=== PATIENT | male | born 1955 | race Hispanic/Latino ===

== ENCOUNTER → 2019-05-19 | Outpatient (CLI) | payer MEDICARE ==
[~2019-05-19] MED LIST: REGADENOSON 0.4 MG/5 ML SYR IV ONE
== END ==
LOC: NM 07:24
PROVIDERS: ATTEND Internal Medicine Cardiovascular Disease
DX: R07.9 Chest pain, unspecified (principal); I25.10 Atherosclerotic heart disease of native coronary artery without angina pectoris
CPT/HCPCS: 78452; 93017; A9502; J2785

== ENCOUNTER 2020-03-11 10:13 | Inpatient (IN) | payer MEDICARE ==
[~2020-03-11] VITALS: Ht 165.1 cm; Wt 86.7 kg
[2020-03-11] MEDS ORDERED: ACETAMINOPHEN 325 MG TAB PO STA (10:32)
[2020-03-11] MEDS ORDERED: CEFTRIAXONE SOD 1 GM/NS 50 ML 50 ML IV STA (10:32)
[2020-03-11 11:28] LABS: BASOPHILS # (AUTO) 0.1 (0.0-0.1); BASOPHILS % 0.7 % (0.0-1.0); HEMATOCRIT 26.8 % (38.2-49.6); HEMOGLOBIN 8.3 g/dL (14.0-18.0); LYMPHOCYTES # (AUTO) 0.9 (1.0-3.2); LYMPHOCYTES % 11.3 % (18.0-39.1); MEAN CORPUSCULAR HEMOGLOBIN 25.6 pg (28-32); MEAN CORPUSCULAR VOLUME 82.7 fL (81-99); MONOCYTES # (AUTO) 0.6 (0.2-0.8); MONOCYTES % 8.3 % (4.4-11.3); NEUTROPHILS % 78.4 % (38.7-80.0); PLATELET COUNT 512 x10e3/uL (140-360); RED BLOOD COUNT 3.24 x10e6/uL (4.3-5.7); RED CELL DISTRIBUTION WIDTH 15.9 % (11.7-14.4)
[2020-03-11 11:46] LABS: ALANINE AMINOTRANSFERASE 34 IU/L (0-55); ALBUMIN 2.2 g/dL (3.5-5.0); ALBUMIN/GLOBULIN RATIO 0.5 (0.8-2.0); ALKALINE PHOSPHATASE 97 IU/L (40-150); BLOOD UREA NITROGEN 15 mg/dL (7-26); BUN/CREATININE RATIO 15 (6-25); CALCIUM 8.4 mg/dL (8.4-10.2); CARBON DIOXIDE 24 mmol/L (22-29); CHLORIDE 94 mmol/L (98-107); CREATININE, SERUM 1.01 mg/dL (0.72-1.25); EST GLOMERULAR FILTRATION RATE > 60 ML/MIN (60-); GLUCOSE 202 mg/dL (74-118); SODIUM 127 mmol/L (136-145)
--- NOTE | 2020-03-11 12:28 | Diagnostic Imaging Report ---
EXAMINATION: CHEST SINGLE (PORTABLE) INDICATION: Shortness of breath COMPARISON: None FINDINGS: LINES/TUBES:EKG leads overlie the chest. LUNGS:The lungs are moderately inflated. Left greater than right lower lung patchy airspace opacities. PLEURA:No pleural effusion or pneumothorax. MEDIASTINUM:The cardiomediastinal silhouette appears normal in size and shape. Atherosclerotic calcifications of the thoracic aorta. BONES/SOFT TISSUES:No acute osseous injury. ABDOMEN:No free air under the diaphragm. IMPRESSION: Left greater than right lower lung patchy airspace opacities concerning for pneumonia in the proper clinical setting. Signed by: Maggie Pacheco MD on 03/11/2020 12:25 PM
--- NOTE | 2020-03-11 12:57 | Emergency Department Note ---
History of Present Illnes History of Present Illness Chief Complaint: COVID PUI History of Present Illness This is a 64 year old male . Historian: Patient, Family Member Arrival Mode: Car Onset (how long ago): day(s) (2) Location: CHEST Quality: FEVER Radiation: Denies non-radiation, Denies back, Denies neck, Denies extremity, Denies abdomen, Denies periumbilical, Denies flank, Denies proximal, Denies distal, Denies other Severity: moderate Onset quality: gradual Duration (how long): day(s) (2) Timing of current episode: constant Progression: unchanged Chronicity: new Context: Denies recent illness, Denies recent surgery, Denies recent immobilization, Denies recent travel, Denies trauma/injury, Denies new medications, Denies hx of DVT/PE, Denies non-compliance w/ medications, Denies other Relieving factors: none Exacerbating factors: none Associated symptoms: Reports cough, Reports fever/chills; Denies denies other symptoms, Denies confusion, Denies chest pain, Denies diaphoresis, Denies headaches, Denies loss of appetite, Denies malaise, Denies nausea/vomiting, Denies rash, Denies seizure, Denies shortness of breath, Denies syncope, Denies weakness, Denies other Treatments prior to arrival: none Past Medical/Family History Physician Review I have reviewed the patient's past medical and family history. Any updates have been documented here. Past Medical History Recent Fever: Yes Clinical Suspicion of Infectio: Yes New/Unexplained Change in Ment: No Past Medical History: Hypertension, Diabetes, CAD, Anemia, GERD, Hyperlipedemia Other Medical History: VERTIGO BPH Past Surgical History: None Social History Smoking Cessation: Former smoker Counseling Performed: No Alcohol Use: None Any Illegal Drug Use: No Physically hurt or threatened: No Other Any Pre-Existing Lines (PICC,: No Review of Systems Review of Systems Constitutional: Reports as per HPI, Reports fever EENTM: Reports no symptoms Cardiovascular: Reports no symptoms Respiratory: Reports as per HPI Gastrointestinal: Reports no symptoms Genitourinary: Reports no symptoms Musculoskeletal: Reports no symptoms Integumentary: Reports no symptoms Neurological: Reports no symptoms Psychological: Reports no symptoms Endocrine: Reports no symptoms Hematological/Lymphatic: Reports no symptoms Physical Exam Related Data Allergies: Coded Allergies: No Known Allergies (Unverified , 03/11/20) Triage Vital Signs Vital Signs Date Time Temp Pulse Resp B/P (MAP) Pulse Ox O2 Delivery O2 Flow Rate FiO2 03/11/20 10:38 102.4 118 28 113/57 97 Room Air 03/11/20 10:45 Vital signs reviewed: Yes Physical Exam CONSTITUTIONAL Constitutional: Present well-developed, Present well-nourished HENT HENT: Present normocephalic, Present atraumatic, Present oropharynx clear/moist, Present nose normal HENT L/R: Present left ext ear normal, Present right ext ear normal EYES Eyes: Reports PERRL, Reports conjunctivae normal NECK Neck: Present ROM normal PULMONARY Pulmonary: Present effort normal, Present rhonchi CARDIOVASCULAR Cardiovascular: Present regular rhythm, Present heart sounds normal, Present capillary refill normal, Present normal rate GASTROINTESTINAL Abdominal: Present soft, Present nontender, Present bowel sounds normal GENITOURINARY Genitourinary: Present exam deferred SKIN Skin: Present warm, Present dry MUSCULOSKELETAL Musculoskeletal: Present ROM normal NEUROLOGICAL Neurological: Present alert, Present oriented x 3, Present no gross motor or sensory deficits PSYCHOLOGICAL Psychological: Present mood/affect normal, Present judgement normal Results Laboratory Result Diagram: 03/11/20 1105 03/11/20 1105 Laboratory Laboratory Tests Test 03/11/20 11:05 03/11/20 10:40 White Blood Count 7.60 x10e3/uL (4.8-10.8) Red Blood Count 3.24 x10e6/uL (4.3-5.7) Hemoglobin 8.3 g/dL (14.0-18.0) Hematocrit 26.8 % (38.2-49.6) Mean Corpuscular Volume 82.7 fL (81-99) Mean Corpuscular Hemoglobin 25.6 pg (28-32) Mean Corpuscular Hemoglobin Concent 31.0 g/dL (31-35) Red Cell Distribution Width 15.9 % (11.7-14.4) Platelet Count 512 x10e3/uL (140-360) Neutrophils (%) (Auto) 78.4 % (38.7-80.0) Lymphocytes (%) (Auto) 11.3 % (18.0-39.1) Monocytes (%) (Auto) 8.3 % (4.4-11.3) Eosinophils (%) (Auto) 0.0 % (0.0-6.0) Basophils (%) (Auto) 0.7 % (0.0-1.0) Neutrophils # (Auto) 6.0 (2.1-6.9) Lymphocytes # (Auto) 0.9 (1.0-3.2) Monocytes # (Auto) 0.6 (0.2-0.8) Eosinophils # (Auto) 0.0 (0.0-0.4) Basophils # (Auto) 0.1 (0.0-0.1) Absolute Immature Granulocyte (auto 0.10 x10e3/uL (0-0.1) Sodium Level 127 mmol/L (136-145) Potassium Level 4.0 mmol/L (3.5-5.1) Chloride Level 94 mmol/L (98-107) Carbon Dioxide Level 24 mmol/L (22-29) Anion Gap 13.0 mmol/L (8-16) Blood Urea Nitrogen 15 mg/dL (7-26) Creatinine 1.01 mg/dL (0.72-1.25) Estimat Glomerular Filtration Rate > 60 ML/MIN (60-) BUN/Creatinine Ratio 15 (6-25) Glucose Level 202 mg/dL (74-118) Lactic Acid Level 1.3 mmol/L (0.5-2.0) Calcium Level 8.4 mg/dL (8.4-10.2) Total Bilirubin 0.3 mg/dL (0.2-1.2) Aspartate Amino Transf (AST/SGOT) 55 IU/L (5-34) Alanine Aminotransferase (ALT/SGPT) 34 IU/L (0-55) Alkaline Phosphatase 97 IU/L (40-150) Troponin I 0.055 ng/mL (0-0.300) Total Protein 6.5 g/dL (6.5-8.1) Albumin 2.2 g/dL (3.5-5.0) Globulin 4.3 g/dL (2.3-3.5) Albumin/Globulin Ratio 0.5 (0.8-2.0) Lab results reviewed: Yes Imaging Imaging results reviewed: Yes Assessment & Plan Medical Decision Making MDM PNEUMONIA BRONCHITIS Reassessment Reassessment BETTER Assessment & Plan Final Impression: (1) Pneumonia (2) Anemia (3) Fever Depart Disposition: ADMITTED Last Vital Signs Date Time Temp Pulse Resp B/P (MAP) Pulse Ox O2 Delivery O2 Flow Rate FiO2 03/11/20 12:44 100.1 99 16 95/62 95 Room Air 03/11/20 10:45 Home Meds Reported Medications Linagliptin/Metformin Hcl (JENTADUETO 2.5 MG-1000 MG TAB) 1 Each Tablet, 1 TAB PO BID 03/12/20 Lovastatin (LOVASTATIN) 40 Mg Tablet, PO HS THERAPEUTICALLY SUBSTITUTED WITH SIMVASTATIN 20MG 03/12/20 Famotidine (FAMOTIDINE) 20 Mg Tab, 40 MG PO DAILY, #30 TAB 03/12/20 Dutasteride (AVODART) 0.5 Mg Capsule, 0.5 MG PO DAILY, #30 CAP 03/12/20 Tamsulosin Hcl* (FLOMAX*) 0.4 Mg Cap, 0.4 MG PO DAILY, #30 CAP 03/12/20 Ferrous Sulfate (IRON) 325 Mg Tablet, PO DAILY 03/12/20 Medications in the ED Acetaminophen 650 mg ONCE STAT PO Last administered on 03/11/20at 11:31; Admin Dose 650 MG; Start 03/11/20 at 10:32; Stop 03/11/20 at 10:39; Status DC Ceftriaxone Sodium 50 ml @ 50 mls/hr ONCE STAT IV Last administered on 03/11/20at 11:31; Admin Dose 50 MLS/HR; Start 03/11/20 at 10:32; Stop 03/11/20 at 11:31; Status DC MARCELO SALOMON MD Mar 11, 2020 12:57
[2020-03-11] MEDS ORDERED: ONDANSETRON HCL INJ 2MG/ML 2ML 2 MG/ML VIAL IV PRN (13:15)
[2020-03-11] MEDS: PIPER-TAZ 3.375 GM 50 ML IV SCH ×2 (15:04→20:33)
[2020-03-11] MEDS: SODIUM CHLORIDE 0.9% 1000ML 1,000 ML IV SCH (15:04)
[2020-03-11 19:18] LABS: BILIRUBIN,URINE NEGATIVE (NEGATIVE); CLARITY,URINE SL CLOUDY (CLEAR); COLOR,URINE YELLOW (YELLOW); KETONES,URINE TRACE (NEGATIVE); LEUKOCYTE ESTERASE ,URINE NEGATIVE (NEGATIVE); NITRITE,URINE NEGATIVE (NEGATIVE); PROTEIN,URINE DIPSTICK 1+ (NEGATIVE); URINE UROBILINOGEN 0.2 mg/dL (0.2 - 1)
[2020-03-11 19:44] LABS: BACTERIA,URINE FEW /HPF
[2020-03-11 21:00] VITALS: BP 141/63
--- NOTE | 2020-03-11 21:00 | NUR ---
Received patient from ER, report form Conrad WHITLOCK, patient is alert, no complaints made at this time, call light within reached,advised to call anytime when needed, bed alarm activated, will continue to monitor closely
[2020-03-11 22:14] VITALS: BP 141/63
[2020-03-11 23:34] VITALS: BP 139/73
[2020-03-12] VITALS (7 sets, daily range): BP systolic 100–115; BP diastolic 52–57
[2020-03-12] MEDS: PIPER-TAZ 3.375 GM 50 ML IV SCH ×4 (02:04→20:33)
[2020-03-12] MEDS: SODIUM CHLORIDE 0.9% 1000ML 1,000 ML IV SCH ×2 (02:05→17:17)
[2020-03-12] MEDS ORDERED: JENTADUETO 2.51 EAC2 PO (03:24)
[2020-03-12] MEDS ORDERED: FAMOTIDINE20 MG PO (03:24)
[2020-03-12] MEDS ORDERED: LOVASTATIN40 MG PO (03:24)
[2020-03-12] MEDS ORDERED: FLOMAX0.4 MG PO (03:24)
[2020-03-12] MEDS ORDERED: AVODART0.5 MG PO (03:24)
[2020-03-12] MEDS ORDERED: IRON325 M1 PO (03:24)
[2020-03-12] MEDS: ACETAMINOPHEN 325 MG TAB PO PRN ×2 (05:02→20:35)
[2020-03-12] MEDS ORDERED: GUAIFENESIN/DEXTROMETHORPHAN LIQD 5 ML UDC NG PRN (05:30)
[2020-03-12] MEDS ORDERED: DOCUSATE SODIUM 100 MG CAP PO PRN (05:30)
[2020-03-12] MEDS ORDERED: ONDANSETRON HCL INJ 2MG/ML 2ML 2 MG/ML VIAL IV PRN (05:30)
[2020-03-12] MEDS ORDERED: ACETAMINOPHEN 325 MG TAB PO PRN (05:30)
[2020-03-12] MEDS ORDERED: ZOLPIDEM TARTRATE 5 MG TAB PO PRN (05:30)
--- NOTE | 2020-03-12 05:36 | NUR ---
H&P cc: sob HPI: 64yoM, PCP , developed SOB for 15 days. No sick contacts. No cp. Found to be COVID19 positive; PMH: DM2, HLD, BPH PShx: unknown Allergies; see emr FH/SH; ; no cigs; meds; see MAR ROS: no f/c/s/N/V/D/FERNANDEZ/cp/skin rash/confusion/dizziness v/s; revd PE tired appearing anicteric ns1s2 Reduced Breath sounds soft nt nd no e/t skin dry flat affect labs/meds revd A/P: 64yoM Multifocal PNA- zosyn/azithromycin/tessalon/loratadine/vitC/zinc; f/u COVID testing COVID 19 positive PNA- use dexamethasone and consult ID/pulm. COnsider antiviral. Acute resp failure- O2 support Hyponatremia- reassess DM2- hab1c/lipids; ssi BPH- flomax HLD- statin Prop: pepcid/lovenox dispo: Yasir Sultana MD, PhD.
[2020-03-12 05:38] LABS: BASOPHILS % 0.5 % (0.0-1.0); EOSINOPHILS % 0.3 % (0.0-6.0); HEMATOCRIT 22.7 % (38.2-49.6); HEMOGLOBIN 7.1 g/dL (14.0-18.0); LYMPHOCYTES # (AUTO) 0.8 (1.0-3.2); LYMPHOCYTES % 13.9 % (18.0-39.1); MEAN CORPUSCULAR HEMOGLOBIN 25.8 pg (28-32); MEAN CORPUSCULAR HGB CONC 31.3 g/dL (31-35); MEAN CORPUSCULAR VOLUME 82.5 fL (81-99); MONOCYTES # (AUTO) 0.5 (0.2-0.8); MONOCYTES % 8.1 % (4.4-11.3); NEUTROPHILS # (AUTO) 4.4 (2.1-6.9); PLATELET COUNT 474 x10e3/uL (140-360); RED BLOOD COUNT 2.75 x10e6/uL (4.3-5.7); RED CELL DISTRIBUTION WIDTH 16.1 % (11.7-14.4)
[2020-03-12] MEDS ORDERED: DEXTROSE 50% SYRINGE 50 ML IV PRN (05:45)
[2020-03-12 06:07] LABS: ALANINE AMINOTRANSFERASE 42 IU/L (0-55); ALBUMIN 1.9 g/dL (3.5-5.0); ALBUMIN/GLOBULIN RATIO 0.5 (0.8-2.0); ALKALINE PHOSPHATASE 89 IU/L (40-150); ANION GAP 12.8 mmol/L (8-16); BLOOD UREA NITROGEN 13 mg/dL (7-26); BUN/CREATININE RATIO 15 (6-25); CALCIUM 7.8 mg/dL (8.4-10.2); CARBON DIOXIDE 23 mmol/L (22-29); CHLORIDE 101 mmol/L (98-107); CREATININE, SERUM 0.84 mg/dL (0.72-1.25); EST GLOMERULAR FILTRATION RATE > 60 ML/MIN (60-); GLUCOSE 175 mg/dL (74-118); POTASSIUM 3.8 mmol/L (3.5-5.1); SODIUM 133 mmol/L (136-145)
[2020-03-12 06:23] LABS: CHOL/HDL RATIO 11.2 (3.9-4.7)
[2020-03-12] MEDS: AZITHROMYCIN 500MG/NS 250 ML 250 ML IV SCH (06:23)
--- NOTE | 2020-03-12 07:12 | NUR ---
Report given to sissy WHITLOCK, communicated to update re plan of care and she wanted to speak to the MD. Will follow up
[2020-03-12] MEDS: INSULIN REGULAR, HUMAN 100 UNIT/1 ML 3ML VIAL SQ SCH ×4 (07:30→20:33)
--- NOTE | 2020-03-12 07:36 | NUR ---
PATIENT IN BED RESTING WITH NO S/S OF DISTRESS. MD IN TO SEE PATIENT, NEW ORDERS RECEIVED. BED IN LOWER POSITION, CALL LIGHT AT REACH.
[2020-03-12] MEDS: TAMSULOSIN HCL 0.4 MG CAP PO SCH (09:49)
[2020-03-12] MEDS: FERROUS SULFATE 325 MG TAB PO SCH (09:49)
[2020-03-12] MEDS: DUTASTERIDE 0.5 MG CAP PO SCH (09:49)
[2020-03-12] MEDS: LORATADINE 10 MG TAB PO SCH (09:49)
[2020-03-12] MEDS: BENZONATATE 100 MG CAP PO SCH ×3 (09:50→20:34)
[2020-03-12] MEDS: ASCORBIC ACID 500 MG TAB PO SCH ×2 (09:50→17:31)
[2020-03-12] MEDS: ZINC SULFATE 220 MG CAP PO SCH (09:50)
[2020-03-12] MEDS: FAMOTIDINE 20 MG TAB PO SCH (09:50)
--- NOTE | 2020-03-12 11:08 | NUR ---
PATIENT ASSISTED WITH URINAL. VOIDED 200CC OF CLEAR YELLOW URINE. IN BED WITH CALL LIGHT AT REACH
--- NOTE | 2020-03-12 16:14 | NUR ---
PATIENT AMBULATING WITH PHYSICAL THERAPY, NO COMPLAIN VOICED. WILL CONTINUE TO MONITOR.
[2020-03-12] MEDS: ENOXAPARIN SOD INJ 40 MG/0.4 ML SYR SC SCH (17:31)
[2020-03-12] MEDS: DEXAMETHASONE SOD PHOS INJ 4 MG/ML VIAL IV SCH (17:46)
--- NOTE | 2020-03-12 19:45 | Consultation ---
DATE OF CONSULTATION: HISTORY OF PRESENT ILLNESS: The patient is a 64-year-old [place] male, comes into the emergency room with shortness of breath. The patient comes in with 2 days of fever, chills, chest pain and not feeling well. His COVID-19 was positive. The patient is currently on nasal cannula 2 L. His white count is 5.8 and hemoglobin 7. Sodium 133, potassium 3.8, and creatinine 0.8. Chest x-ray showed left greater than right patchy airspace opacity. PHYSICAL EXAMINATION: GENERAL: Currently alert, oriented. VITAL SIGNS: Stable, currently afebrile. HEENT: He is not icteric. NECK: Supple. CHEST: Clear. HEART: S1, S2. ABDOMEN: Soft. IMPRESSION: 1. Pneumonia, community acquired, COVID-19. 2. Diabetes mellitus. PLAN: Agree with Zosyn. Agree with azithromycin. Currently, on Lovenox, put him on Decadron. Continue all his home medication. Diabetic control. We will follow. MD CHAZ Mckinney/MODL /[id number]
[2020-03-12] MEDS ORDERED: SIMVASTATIN 20 MG TAB PO SCH (21:00)
--- NOTE | 2020-03-12 21:20 | Consultation ---
DATE OF CONSULTATION: Pulmonary Critical Care Consultation CHIEF COMPLAINT: Cough and dyspnea. HISTORY OF PRESENT ILLNESS: The patient is a 64-year-old man. He reports being sick for about 14 days with fever and chills. He has cough. He also has noted worsening dyspnea. Apparently, his symptoms improved, but then return. PAST MEDICAL HISTORY: 1. The patient denies any prior history of asthma or respiratory problems. 2. The patient denies a history of diabetes. 3. Prostatic hypertrophy. 4. Hypercholesterolemia. 5. No prior heart disease. PAST SURGICAL HISTORY: Noncontributory. ALLERGIES: NO KNOWN DRUG ALLERGIES. SOCIAL HISTORY: The patient is not an active smoker or drinker. REVIEW OF SYSTEMS: There is no headache. He has no fevers. HEENT: Shows no facial swelling or erythema. The oropharynx is normal. LYMPHATIC: Shows no submandibular, cervical, or supraclavicular adenopathy. CARDIAC: Reveals a regular rate and rhythm with normal S1 and S2. LUNGS: Auscultation of lungs reveals crackles at the bases. There is no wheezing. ABDOMEN: Soft and nontender. There is no rebound or guarding. EXTREMITIES: Shows no leg edema or calf tenderness. There is no cyanosis or clubbing. SKIN: Shows no rashes. NEUROLOGICAL: Shows no focal abnormalities. The patient is not complaining of fevers. He does note dyspnea and cough. There is no chest pain. There is no nausea or vomiting. There is no leg edema. PHYSICAL EXAMINATION: VITAL SIGNS: The blood pressure is 115/57, saturation is 100% on 2 L, and the pulse is 92. HEENT: Shows no facial swelling or erythema. CARDIAC: Reveals regular rate and rhythm with normal S1 and S2. LUNGS: Auscultation of lungs reveals rhonchorous breath sounds bilaterally. There is no wheezing. ABDOMEN: Soft and nontender. There is no rebound or guarding. EXTREMITIES: Shows no leg edema or calf tenderness. There is no cyanosis or clubbing. SKIN: Shows no rashes. NEUROLOGICAL: Shows no focal abnormalities. LABORATORY DATA: White blood cell count is 5.8 and the hemoglobin is 7.1. The platelet count is 474. BUN to creatinine ratio is normal. The sodium is 133. Albumin is 1.9. RADIOGRAPHIC DATA: Chest x-ray shows bilateral patchy infiltrates. IMPRESSION: 1. Acute respiratory failure. 2. Viral pneumonia and COVID-19 infection. 3. Anemia secondary to chronic blood loss. 4. Hypoalbuminemia. 5. Benign prostatic hypertrophy. PLAN: 1. Continue current antibiotics. 2. Judicious use of IV fluids. 3. Dexamethasone. 4. Lovenox twice daily. 5. Continue current prostate medications. 6. Monitor and control blood sugars. Rian Snow MD [facility]/MODL /[id number]
[2020-03-13] VITALS: BP 113/57
[2020-03-13] MEDS: PIPER-TAZ 3.375 GM 50 ML IV SCH ×3 (02:00→13:09)
[2020-03-13 04:00] VITALS: BP 132/69
[2020-03-13] MEDS: AZITHROMYCIN 500MG/NS 250 ML 250 ML IV SCH (04:21)
[2020-03-13] MEDS: SODIUM CHLORIDE 0.9% 1000ML 1,000 ML IV SCH (04:21)
[2020-03-13] MEDS: INSULIN REGULAR, HUMAN 100 UNIT/1 ML 3ML VIAL SQ SCH ×3 (07:30→17:23)
[2020-03-13] MEDS ORDERED: SODIUM CHLORIDE 0.9% 250ML 0 ML ONE (07:45)
[2020-03-13 08:22] VITALS: BP 132/68
[2020-03-13 08:33] VITALS: BP 132/68
[2020-03-13] MEDS: FAMOTIDINE 20 MG TAB PO SCH (08:59)
[2020-03-13] MEDS: TAMSULOSIN HCL 0.4 MG CAP PO SCH (08:59)
[2020-03-13] MEDS: LORATADINE 10 MG TAB PO SCH (08:59)
[2020-03-13] MEDS: DUTASTERIDE 0.5 MG CAP PO SCH (08:59)
[2020-03-13] MEDS: FERROUS SULFATE 325 MG TAB PO SCH (08:59)
[2020-03-13] MEDS: BENZONATATE 100 MG CAP PO SCH ×2 (08:59→16:00)
[2020-03-13] MEDS: ASCORBIC ACID 500 MG TAB PO SCH ×2 (08:59→16:00)
[2020-03-13] MEDS: ZINC SULFATE 220 MG CAP PO SCH (09:00)
--- NOTE | 2020-03-13 09:30 | NUR ---
Exerted patient on room air SPO2 84%. Placed patient back on 3L NC. SPO2 93%
--- NOTE | 2020-03-13 09:43 | NUR ---
Dr. Malloy, PT evaluated and discharged Mr. Maynard yesterday. They recommended DC home and a RW. Assessment copied and pasted below. Patient is discharged from our services. Assessment Patient overall tolerated PT well. Demonstrates good strength, activity tolerance, gait, balance and transfers. Patient ambulated 120 ft with rolling walker and was overall steady and safe. Does not demonstrate fatigue, dyspnea or unsteadiness. He is functioning at baseline level. All functional goals met. Spo2 99-100% on room air during gait. Discussed for patient to ambulate as tolerated with walker 2-3 times per day with RN. Will discharge from PT. Left upright in bed with all needs met. Call light within reach. RN notified of assessment. 3L of O2 donned on. DISCHARGE PLAN . Location Home Discharge Comments EQUIPMENT RECOMMENDATION: Rolling Walker. Patient has malfunctioning wheels on his current rollator. Kind regards, Divina Johnston PT, DPT Addendum: 03/13/20 at 0945 by Divina Johnston PT Amended: Links added.
--- NOTE | 2020-03-13 11:03 | Progress Note ---
DATE: SUBJECTIVE: The patient is on 3 L of oxygen. He is more comfortable. He is not complaining of cough or fevers. He is not having nausea or vomiting. PHYSICAL EXAMINATION: VITAL SIGNS: The patient is afebrile. The vital signs are stable. HEENT: Shows no facial swelling or erythema. CARDIAC: Reveals regular rate and rhythm with normal S1 and S2. LUNGS: Auscultation of lungs reveals rhonchorous breath sounds bilaterally. There is no wheezing. ABDOMEN: Soft and nontender. There is no rebound or guarding. EXTREMITIES: Shows no leg edema or calf tenderness. There is no cyanosis or clubbing. SKIN: Shows no rashes. IMPRESSION: 1. Acute respiratory failure. 2. Viral pneumonia and COVID-19 infection. 3. Anemia secondary to chronic blood loss. 4. Benign prostatic hypertrophy. PLAN: 1. Continue current antibiotics. 2. Physical therapy. 3. Complete dexamethasone. 4. Lovenox. 5. Monitor and control blood sugars. Rian Snow MD [facility]/MODL /[id number]
[2020-03-13 12:16] VITALS: BP 121/64
[2020-03-13] MEDS: DEXAMETHASONE SOD PHOS INJ 4 MG/ML VIAL IV SCH (16:00)
[2020-03-13] MEDS: ENOXAPARIN SOD INJ 40 MG/0.4 ML SYR SC SCH (16:00)
--- NOTE | 2020-03-13 16:24 | NUR ---
ORDER RECEIVED FOR HOME O2 3L/NC CALL TO THE PT'S ROOM. VERIFIED DEMO. CHOICE PROVIDED. REFERRAL FAXED TO [facility] @ [facility]: [phone] / FAX: [phone]. NOTIFIED RUBI Martínez / [facility]. NOTIFIED CHINYERE NDIAYE TO HAVE PT CALL # ON FRONT OF [facility] AT [facility]. IMM LETTER EXPLAINED TO PT. PT VERBALIZED UNDERSTANDING. IMM LETTER SIGNED. COPY TO PT AND COPY TO CHART.
[2020-03-13 16:45] VITALS: BP 130/80
[2020-03-13] MEDS ORDERED: AUGMENTIN 875-1 EACH PO (17:32)
[2020-03-13] MEDS ORDERED: DECADRON6 MG PO (17:32)
[2020-03-13] MEDS ORDERED: ONDANSETRON HCL 4 MG ORAL DISINTEGRATING TAB PO PRN (17:45)
--- NOTE | 2020-03-13 17:55 | NUR ---
Left hand IV discontinued. No signs of infiltration noted. 2x2 gauze and coban placed. Taken via wheelchair by PCT to personal car. AAOX4 to time, person, place, situation. Respirations even and unlabored.O2 3L NC via personal oxygen tank. Discharge instructions, rx, and all personal belongings taken with patient.
--- NOTE | 2020-03-13 20:05 | Progress Note ---
DATE: Mr. Maynard is seen and examined. Chart reviewed. Discussed remdesivir is still experimental drug. He can stop it any time he want. I would suggest cheer for him. Fact sheet was given. The patient is going to think about it and let me know. He did agree, we will give it to him when available. MD CHAZ Mckinney/JUDSON /[id number]
--- NOTE | 2020-03-14 10:53 | Progress Note ---
DATE: SUBJECTIVE: Mr. Maynard is doing well. There is no complaint. The patient was tested positive for COVID. He was on 2 L. He is currently on 3 L. PHYSICAL EXAMINATION: GENERAL: He is currently alert. VITAL SIGNS: Stable, currently afebrile. HEENT: Not icteric. NECK: Supple. CHEST: Clear. HEART: S1, S2. ABDOMEN: Soft. MEDICATIONS: The patient is currently on Zosyn and azithromycin. LABORATORY DATA: White count 5.8. IMPRESSION: Bacterial pneumonia, superimposed coronavirus disease-19. Remains on 3 L. Seems to get worse. We will discuss with him about remdesivir. We will follow. MD CHAZ Mckinney/JUDSON /[id number]
--- OUTSIDE RECORDS SUMMARY | 2020-03-15 18:47 | XMS REPORT | Continuity of Care Document ---
Author Author [facility] t Organization [facility] Address [address] [place] [address] Phone Unavailable Care Team Providers Care Development Assistant Name Role Phone MD Zara HENRY PCP MARCEOL SALOMON Attphys Unavailable Ej HAILE Attphys Unavailable Payers Payer Name Policy Type Policy Number Effective Date Expiration Date S ource Problems Condition Name Condition Details Condition Category Status Onset Date Resolution Date Last Treatment Date Treating Clinician Comments Source Pneumonia Problem Active [facility] Anemia Problem Active [facility] Fever Problem Active [facility] Allergies, Adverse Reactions, Alerts Allergy Name Allergy Type Status Severity Reaction(s) Onset Date Inacti ve Date Treating Clinician Comments Source No Known Allergies DA Active U 2018-12-21 00:00:00 [facility] No Known Contrast Allergies DA Active U 2008-05-24 00:00: 00 [facility] No Known Drug Allergies DA Active U 2008-05-24 00:00:00 [facility] No Known Food Allergies DA Active U 2008-05-24 00:00:00 [facility] No Known Other Allergies DA Active U 2008-05-24 00:00:00 [facility] Social History Social Habit Start Date Stop Date Quantity Comments Source Sex Assigned At 1955 00:00:00 1955 00:00:00 Male [facility] Medications Ordered Medication Name Filled Medication Name Start Date Stop Da te Current Medication? Ordering Clinician Indication Dosage Frequency Signature (SIG) Comments Components Source Amoxicillin/Potassium Clav (Augmentin 875-125 Tablet) 1 Each TABLET Amoxicillin/Potassium Clav (Augmentin 875-125 Tablet) 1 Each TABLET Yes 875 Twice A Day [facility] Dexamethasone (Decadron) 6 Mg TABLET Dexamethasone (Decadron) 6 Mg TABLET Yes 6 Daily [facility] Dutasteride (Avodart) 0.5 Mg CAPSULE Dutasteride (Avodart) 0.5 Mg C APSULE Yes .5 Daily [facility] Famotidine Famotidine Yes 40 Daily [facility] I [facility] Ferrous Sulfate (Iron) 325 Mg TABLET Ferrous Sulfate (Iron) 325 Mg TABLET Yes Daily [facility] Linagliptin/Metformin Hcl (Jentadueto 2.5 Mg-1000 Mg T ab) 1 Each TABLET Linagliptin/Metformin Hcl (Jentadueto 2.5 Mg-1000 Mg Tab) 1 Each TABLET Yes 1 Twice A Day [facility] Lovastatin Lovastatin Yes Bedtime [facility] Tamsulosin Hcl (Flomax*) 0.4 Mg CAP Tamsulosin Hcl (Flomax*) 0.4 Mg C AP Yes .4 Daily [facility] Vital Signs Vital Name Observation Time Observation Value Comments Source Body Temperature 2020-03-13 16:45:00 97.7 [degF] [facility] Weight 2020-03-13 01:05:00 191.06 [lb_av] [facility] BMI (Body Mass Index) 2020-03-13 01:05:00 31.8 kg/m2 [facility] Procedures This patient has no known procedures. Plan of Care Planned Activity Planned Date Details Comments Source Instructions COVID-19: 10/30/2019 [facility] Instructions Diabetes and Diet [facility] Instructions Infection Control [facility] Instructions Pneumonia - Viral [facility] Encounters Start Date/Time End Date/Time Encounter Type [facility] Encounter ID Source 2020-03-11 10:38:00 2020-03-13 17:55:00 Discharged Inpatient 1 MARCELO SALOMON [facility] [id number] [facility] 2019-05-19 07:24:00 2019-05-19 07:24:00 Registered Clinic 3 ANSHU HAILE [facility] [id number] [facility] Results Test Description Test Time Test Comments Results Result Comments Source Capillary blood glucose measurement by glucometer (mas s/volume) 2020-03-13 07:53:00 Test Item Bedside Glucose (test code = 64045-3) 171 70-120 Meter ID: [id number] automated count (number/volume)2020-03-12 05:20:00* Test Item Value Reference Range Interpretation Comments White Blood Count (test code = 6690-2) 5.81 4.8-10.8 [facility] erythrocytes automated count (number/volume)2020-03-12 05:20:00* Test Item Value Reference Range Interpretation Comments Red Blood Count (test code = 789-8) 2.75 4.3-5.7 [facility] hemoglobin measurement (moles/volume)2020-03-12 05:20:00* Test Item Value Reference Range Interpretation Comments Hemoglobin (test code = 17579-6) 7.1 14.0-18.0 [facility] HospitalAutomated blood hematocrit (volume fraction)2020-03-12 05:20:00* Test Item Value Reference Range Interpretation Comments Hematocrit (test code = 4544-3) 22.7 38.2-49.6 [facility] HospitalAutomated erythrocyte mean corpuscular lckcja8466-48-46 05:20:00* Test Item Value Reference Range Interpretation Comments Mean Corpuscular Volume (test code = 787-2) 82.5 81-99 [facility]Autom[facility] erythrocyte mean corpuscular hemoglobin (mass per erythrocyte)2020-03-12 05:20:00* Test Item Value Reference Range Interpretation Comments Mean Corpuscular Hemoglobin (test code = 785-6) 25.8 28-32 [facility]Autom[facility] erythrocyte mean corpuscular hemoglobin concentration measurement (mass/volume)2020-03-12 05:20:00* Test Item Value Reference Range Interpretation Comments Mean Corpuscular Hemoglobin Concent (test code = 786-4) 31.3 31-35 [facility] HospitalRDW LapRw-Wfi0543-34-28 05:20:00* Test Item Value Reference Range Interpretation Comments Red Cell Distribution Width (test code = 36228-1) 16.1 11.7 -14.4 [facility] HospitalAutom[facility] blood platelet count (count/volume)2020-03-12 05:20:00* Test Item Value Reference Range Interpretation Comments Platelet Count (test code = 777-3) 474 140-360 [facility]Autom[facility] blood segmented neutrophil count as percentage of total uovjggfrpj0512-94-41 05:20:00* Test Item Value Reference Range Interpretation Comments Neutrophils (%) (Auto) (test code = 45609-2) 76.0 38.7-80.0 [facility]Autom[facility] blood lymphocyte count as percentage ot total rqqqnrvuuz4780-77-09 05:20:00* Test Item Value Reference Range Interpretation Comments Lymphocytes (%) (Auto) (test code = 736-9) 13.9 18.0-39.1 [facility] HospitalAutomated blood monocyte count as percentage of total fxnvlhtazh8556-41-87 05:20:00* Test Item Value Reference Range Interpretation Comments Monocytes (%) (Auto) (test code = 5905-5) 8.1 4.4-11.3 [facility]Autom[facility] blood eosinophil count as percentage of total cdwtcbcwro6758-35-29 05:20:00* Test Item Value Reference Range Interpretation Comments Eosinophils (%) (Auto) (test code = 713-8) 0.3 0.0-6.0 [facility] HospitalAutomated blood basophil count as percentage of total lgyojaghee8916-05-72 05:20:00* Test Item Value Reference Range Interpretation Comments Basophils (%) (Auto) (test code = 706-2) 0.5 0.0-1.0 [facility] HospitalFluoroscopic procedure less than one hour ndejfwje1526-07-31 05:20:00* Test Item Value Reference Range Interpretation Comments IM GRANULOCYTES % (test code = IM GRANULOCYTES %) 1.2 0.0- 1.0 [facility] HospitalAutom[facility] blood neutrophil count 2020-03-12 05:20:00* Test Item Value Reference Range Interpretation Comments Neutrophils # (Auto) (test code = 751-8) 4.4 2.1-6.9 [facility]Blood lymphocytes count (number/volume) 2020-03-12 05:20:00* Test Item Value Reference Range Interpretation Comments Lymphocytes # (Auto) (test code = 87328-9) 0.8 1.0-3.2 [facility]Bl[facility] monocytes automated count (number/volume)2020-03-12 05:20:00* Test Item Value Reference Range Interpretation Comments Monocytes # (Auto) (test code = 742-7) 0.5 0.2-0.8 [facility] HospitalAutomated blood eosinophil count 2020-03-12 05:20:00* Test Item Value Reference Range Interpretation Comments Eosinophils # (Auto) (test code = 711-2) 0.0 0.0-0.4 [facility] HospitalAutomated blood basophil count (count/volume)2020-03-12 05:20:00* Test Item Value Reference Range Interpretation Comments Basophils # (Auto) (test code = 704-7) 0.0 0.0-0.1 [facility] HospitalFluoroscopic procedure less than one hour fsryydwf9459-11-73 05:20:00* Test Item Value Reference Range Interpretation Comments Absolute Immature Granulocyte (auto (marcelina t code = Absolute Immature Granulocyte (auto) 0.07 0-0.1 [facility] sodium measurement (moles/volume)2020-03-12 05:20:00* Test Item Value Reference Range Interpretation Comments Sodium Level (test code = 2951-2) 133 136-145 [facility]erum or plasma potassium measurement (moles/volume)2020-03-12 05:20:00* Test Item Value Reference Range Interpretation Comments Potassium Level (test code = 2823-3) 3.8 3.5-5.1 [facility] or plasma chloride measurement (moles/volume)2020-03-12 05:20:00* Test Item Value Reference Range Interpretation Comments Chloride Level (test code = 2075-0) 101 98-107 [facility]erum or plasma carbon dioxide, total measurement (moles/volume)2020-03-12 05:20:00* Test Item Value Reference Range Interpretation Comments Carbon Dioxide Level (test code = 2028-9) 23 22-29 [facility]um or plasma anion khe6297-71-90 05:20:00* Test Item Value Reference Range Interpretation Comments Anion Gap (test code = 02792-0) 12.8 8-16 [facility] or plasma urea nitrogen measurement (mass/volume)2020-03-12 05:20:00* Test Item Value Reference Range Interpretation Comments Blood Urea Nitrogen (test code = 3094-0) 13 7-26 [facility] or plasma creatinine measurement (mass/volume)2020-03-12 05:20:00* Test Item Value Reference Range Interpretation Comments Creatinine (test code = 2160-0) 0.84 0.72-1.25 [facility] or plasma urea nitrogen/creatinine mass dmsfx4457-64-40 05:20:00* Test Item Value Reference Range Interpretation Comments BUN/Creatinine Ratio (test code = 3097-3) 15 6-25 [facility] HospitalEstimated glomerular filtration rate (GFR) nyddxtniwkjyk3393-98-93 05:20:00* Test Item Value Reference Range Interpretation Comments Estimat Glomerular Filtration Rate (test code = 009235340) > 60 >60 Ranges were taken from the National Kidney Disease Education Program and the [facility] literature.Reference ranges:60 or greater: Gctwgt87-64 ( for 3 consecutive months): Chronic kidney disease 15 or less: Kidney failureUT Health [facility] HospitalGlucose mhmdmhlctdw1111-53-22 05:20:00* Test Item Value Reference Range Interpretation Comments Glucose Level (test code = CQB8657) 175 74-118 [facility] or plasma calcium measurement (mass/volume)2020-03-12 05:20:00* Test Item Value Reference Range Interpretation Comments Calcium Level (test code = 60808-9) 7.8 8.4-10.2 [facility] HospitalFluoroscopic procedure less than one hour lxqeaoaz8843-44-39 05:20:00* Test Item Value Reference Range Interpretation Comments Hemoglobin A1c Percent (test code = Hemoglobin A1c Percent) 7.0 4.0-7.0 [facility] or plasma total bilirubin measurement (mass/volume)2020-03-12 05:20:00* Test Item Value Reference Range Interpretation Comments Total Bilirubin (test code = 1975-2) 0.3 0.2-1.2 [facility] HospitalFluoroscopic procedure less than one hour mwhvtqhw5493-24-12 05:20:00* Test Item Value Reference Range Interpretation Comments Aspartate Amino Transf (AST/SGOT) (test code = Aspartate Amino Transf (AST/SGOT)) 94 5-34 [facility]er[facility] or plasma alanine aminotransferase measurement (enzymatic activity/volume)2020-03-12 05:20:00* Test Item Value Reference Range Interpretation Comments Alanine Aminotransferase (ALT/SGPT) (test code = 1742-6) 42 0-55 [facility]erum or plasma protein measurement (mass/volume)2020-03-12 05:20:00* Test Item Value Reference Range Interpretation Comments Total Protein (test code = 2885-2) 5.6 6.5-8.1 [facility] or plasma albumin measurement (mass/volume)2020-03-12 05:20:00* Test Item Value Reference Range Interpretation Comments Albumin (test code = 1751-7) 1.9 3.5-5.0 [facility] HospitalPlasma globulin measurement (mass/volume) 2020-03-12 05:20:00* Test Item Value Reference Range Interpretation Comments Globulin (test code = 53688-8) 3.7 2.3-3.5 [facility] or plasma albumin/globulin mass aencq7441-07-42 05:20:00* Test Item Value Reference Range Interpretation Comments Albumin/Globulin Ratio (test code = 1759-0) 0.5 0.8-2.0 [facility] or plasma alkaline phosphatase measurement (enzymatic activity/volume)2020-03-12 05:20:00* Test Item Value Reference Range Interpretation Comments Alkaline Phosphatase (test code = 6768-6) 89 40-150 [facility] or plasma triglyceride measurement (mass/volume)2020-03-12 05:20:00* Test Item Value Reference Range Interpretation Comments Triglycerides Level (test code = 2571-8) 205 0-149 [facility]er[facility] or plasma cholesterol measurement (mass/volume)2020-03-12 05:20:00* Test Item Value Reference Range Interpretation Comments Cholesterol Level (test code = 2093-3) 101 0-199 Less than 200 mg/dL Low Loft869 - 239 mg/dL Borderline Uxyp854 m g/dl and greater High Risk [facility] or plasma cholesterol in LDL measurement (mass/volume) 2020-03-12 05:20:00* Test Item Value Reference Range Interpretation Comments LDL Cholesterol (test code = 2089-1) 51 60-130 [facility]er[facility] or plasma cholesterol in HDL measurement (mass/volume)2020-03-12 05:20:00* Test Item Value Reference Range Interpretation Comments HDL Cholesterol (test code = 2085-9) 9 40-60 [facility]erum or plasma total cholesterol/cholesterol in HDL mass cinml4857-92-26 05:20:00* Test Item Value Reference Range Interpretation Comments Cholesterol/HDL Ratio (test code = 9830-1) 11.2 3.9-4.7 [facility] HospitalUrine color svwzcsyyppdgi9052-38-35 19:05:00* Test Item Value Reference Range Interpretation Comments Urine Color (test code = 5778-6) YELLOW YELLOW [facility] HospitalUrine anvenpb8564-10-66 19:05:00* Test Item Value Reference Range Interpretation Comments Urine Clarity (test code = 24892-6) SL CLOUDY CLEAR [facility]waypecific gravity of Urine by Test strip 2020-03-11 19:05:00* Test Item Value Reference Range Interpretation Comments Urine Specific [place] (test code = 5811-5) 1.010 1.010-1.02 5 [facility] HospitalUrine pH measurement by automated test xgzba3492-25-27 19:05:00* Test Item Value Reference Range Interpretation Comments Urine pH (test code = 03405-1) 6 5-7 [facility] HospitalUrine leukocyte esterase detection by tddmesxm5301-24-34 19:05:00* Test Item Value Reference Range Interpretation Comments Urine Leukocyte Esterase (test code = 5799-2) NEGATIVE NEGATIVE [facility] HospitalUrine nitrite qovntzsft8794-98-91 19:05:00* Test Item Value Reference Range Interpretation Comments Urine Nitrite (test code = 38405-7) NEGATIVE NEGATIVE [facility] HospitalUrine protein measurement by test strip (mass/volume)2020-03-11 19:05:00* Test Item Value Reference Range Interpretation Comments Urine Protein (test code = 5804-0) 1+ NEGATIVE [facility] HospitalUrine glucose qciaoodap4890-09-76 19:05:00* Test Item Value Reference Range Interpretation Comments Urine Glucose (UA) (test code = 2349-9) 2+ NEGATIVE [facility] HospitalUrine ketones detection by automated test cpykr7829-68-17 19:05:00* Test Item Value Reference Range Interpretation Comments Urine Ketones (test code = 45921-7) TRACE NEGATIVE [facility] HospitalUrine urobilinogen measurement by test strip (mass/volume)2020-03-11 19:05:00* Test Item Value Reference Range Interpretation Comments Urine Urobilinogen (test code = 86424-3) 0.2 0.2-1 [facility] HospitalUrine total bilirubin measurement (mass/volume)2020-03-11 19:05:00* Test Item Value Reference Range Interpretation Comments Urine Bilirubin (test code = 1978-6) NEGATIVE NEGATIVE [facility] HospitalUrine erythrocytes nmfgsszvu1411-00-77 19:05:00* Test Item Value Reference Range Interpretation Comments Urine Blood (test code = 93045-2) NEGATIVE NEGATIVE [facility] HospitalAutomated urine sediment leukocyte count by microscopy (number/high power field)2020-03-11 19:05:00* Test Item Value Reference Range Interpretation Comments Urine WBC (test code = 5821-4) NONE 0-5 [facility] HospitalErythrocytes detection in urine sediment by light tihpdgfbss9431-43-31 19:05:00* Test Item Value Reference Range Interpretation Comments Urine RBC (test code = 02800-9) NONE 0-5 [facility] HospitalBacteria detection in urine sediment by light vcojmxcivy3992-62-98 19:05:00* Test Item Value Reference Range Interpretation Comments Urine Bacteria (test code = 67838-8) FEW NONE [facility] HospitalEpithelial cells detection in urine sediment by light szktjhtgxz9278-22-73 19:05:00* Test Item Value Reference Range Interpretation Comments Urine Epithelial Cells (test code = 60717-6) NONE NONE [facility] HospitalCHEST SINGLE (PORTABLE)2020-03-11 12:24:00 [facility] [address] [place] [address] Patient Name: JOYCE ESTRADA MR #: [id number] : 1955 Age/Sex: 64/M Req #: [id number] Adm Physician: Ordered by: MARCELO SALOMON MD Report #: [id number] Location: ER Room/Bed: Procedure: [id number] DX/CHEST SINGL E (PORTABLE) Exam Date: 03/11/20 Exam Time: 1200 REPORT STATUS: Signed EXAMINATION: CHEST SINGLE (PORTABLE) INDICATION: Shortness of breath COMPARISO N: None FINDINGS: LINES/TUBES:EKG leads overlie the chest. L UNGS:The lungs are moderately inflated. Left greater than right lower lung pat valeria airspace opacities. PLEURA:No pleural effusion or pneumothorax. ME DIASTINUM:The cardiomediastinal silhouette appears normal in size and shape. A therosclerotic calcifications of the thoracic aorta. BONES/SOFT TISSUES:No acute osseous injury. ABDOMEN:No free air under the diaphragm. IMPR ESSION: Left greater than right lower lung patchy airspace opacities concerni ng for pneumonia in the proper clinical setting. Signed by: Ruperto Gomez on 03/11/2020 12:25 PM Dictated By: HERO PANIAGUA MD 24 Transcribed By: JOSE A on 03/11/201224 COPY TO: MARCELO SALOMON MD Fluoroscopic procedure less than one hour vqzpojgi7240-62-95 11:05:00* Test Item Value Reference Range Interpretation Comments Lactic Acid Level (test code = Lactic Acid Level) 1.3 0.5- 2.0 [facility] HospitalTroponin I measurement by highly sensitive enzyme taujbedanjp0726-69-27 11:05:00* Test Item Value Reference Range Interpretation Comments Troponin I (test code = 84321-7) 0.055 0-0.300 [facility] HospitalBlood zxnksiv6182-28-72 11:05:00* Test Item Value Reference Range Interpretation Comments Blood Culture (test code = 43142158) NO GROWTH AFTER 48 HOURS [facility] HospitalFluoroscopic procedure less than one hour fcuucugr8020-34-00 10:40:00* Test Item Value Reference Range Interpretation Comments Coronavirus (PCR) (test code = Coronavirus (PCR)) DETECTED NOTD ETECTED SARS-COV2/RT-PCRResults are for the detection of SARS-COV-2 RNA. The SARS-COV-2 RNA is generally detectable in nasopharyngeal swab specimens during the acute ph ase of infection. Positive results are indicitive of active infection with SARS- COV-2; clinical correlation with patient history and other diagnostic informatio n is necessary to determine patient infection status. Positive results do not ru le out bacterial infection or co-infection with other viruses. The agent detecte d may not be the definite cause of the disease.The limit of detection for this a ssay is 250 copies/mLThe SARS-CoV-2 test is a rapid, real-time RT-PCR test inten ded for the qualitative detection of nucleic acid from SARS-CoV-2 in nasopharyng eal swab specimen collected from individuals suspected of COVID-19 by their [facility]. This test has not been Food and Drug Administration (FDA) clear ed or approved and has been authorized by FDA under an Emergency Use Authorizati on (EUA). This EUA will be effective until the declaration that circumstances ex ist justifying the authorization of the emergency use of in vitro diagnostic marcelina t for detection and or diagnosis of COVID-19 is terminated under section 564(b) of the Act, or the the EUA is revoked under 564(g) of the ACT.Testing performed by [id number] [place], [place] [address]GLUBED2020-02-16 12:08:00* Test Item Value Reference Range Interpretation Comments GLUBED (test code = GLUBED) 181 mg/dL 74-106 H Performed by certified developing machine operator at [facility] URINALYSIS [id number] 21:50:00* Test Item Value Reference Range Interpretation Comments UA COLOR (test code = COLU) Dark-Yellow YELLOW UA APPEARANCE (test code = APPU) CLEAR CLEAR UA GLUCOSE DIPSTICK (test code = DGLUU) >1000 (4+) mg/dL NEGATIVE UA BILIRUBIN DIPSTICK (test code = BILU) NEGATIVE mg/dL NEGATIVE UA KETONE DIPSTICK (test code = KETU) NEGATIVE mg/dL NEGATIVE UA SPECIFIC GRAVITY (test code = SGU) 1.023 1.001-1.035 UA BLOOD DIPSTICK (test code = ÓSCAR) Negative mg/dL NEGATIVE UA PH DIPSTICK (test code = SUKHDEV) 5.0 5.0-8.0 UA PROTEIN DIPSTICK (test code = PROU) 10 (Trace) mg/dL NEGATIVE A UA UROBILINIOGEN DIPSTICK (test code = URO) 2.0 (1+) mg/dL NEGATIVE A UA NITRITE DIPSTICK (test code = GEOFF) NEGATIVE NEGATIVE UA LEUKOCYTE ESTERASE W REFLEX (test code = LEUUR) NEGATIVE Carmela/uL NEGATIVE UA WBC (test code = WBCU) 0-5 per HPF 0-5 UA RBC (test code = RBCU) NONE SEEN #/HPF 0-5 UA EPITHELIAL CELLS (test code = EPIU) None seen per HPF FEW UA BACTERIA (test code = BACU) NONE SEEN #/HPF NONE UA MUCUS (test code = MUCU) FEW #/LPF FEW Urine Source? Clean CatchDRUGS OF ABUSE SCREEN [id number] 21:50:00* Test Item Value Reference Range Interpretation Comments URN COCAINE (test code = COCAURN) NEGATIVE <300 ng/mL URN CANNABINOIDS (test code = CANNABURN) NEGATIVE <50 ng/mL URN AMPHETAMINE (test code = AMPHETURN) NEGATIVE <1000 ng/mL URN BARBITURATE (test code = BARBITURN) NEGATIVE <200 ng/mL URN BENZODIAZEPINE (test code = BENZOURN) NEGATIVE <200 ng/mL URN OPIATES (test code = OPIATURN) NEGATIVE <300 ng/mL URN PHENCYCLIDINE (PCP) (test code = PHENCURN) NEGATIVE <25 ng/ mL URN METHADONE (test code = METHAURN) NEGATIVE <300 ng/mL Urine Source? Clean CatchURINALYSIS [id number] 20:47:00* Test Item Value Reference Range Interpretation Comments UA COLOR (test code = COLU) Dark-Yellow YELLOW UA APPEARANCE (test code = APPU) CLEAR CLEAR UA GLUCOSE DIPSTICK (test code = DGLUU) >1000 (4+) mg/dL NEGATIVE UA BILIRUBIN DIPSTICK (test code = BILU) NEGATIVE mg/dL NEGATIVE UA KETONE DIPSTICK (test code = KETU) NEGATIVE mg/dL NEGATIVE UA SPECIFIC GRAVITY (test code = SGU) 1.023 1.001-1.035 UA BLOOD DIPSTICK (test code = ÓSCAR) Negative mg/dL NEGATIVE UA PH DIPSTICK (test code = SUKHDEV) 5.0 5.0-8.0 UA PROTEIN DIPSTICK (test code = PROU) 10 (Trace) mg/dL NEGATIVE A UA UROBILINIOGEN DIPSTICK (test code = URO) 2.0 (1+) mg/dL NEGATIVE A UA NITRITE DIPSTICK (test code = GEOFF) NEGATIVE NEGATIVE UA LEUKOCYTE ESTERASE W REFLEX (test code = LEUUR) NEGATIVE Carmela/uL NEGATIVE UA WBC (test code = WBCU) 0-5 per HPF 0-5 UA RBC (test code = RBCU) NONE SEEN #/HPF 0-5 UA EPITHELIAL CELLS (test code = EPIU) None seen per HPF FEW UA BACTERIA (test code = BACU) NONE SEEN #/HPF NONE UA MUCUS (test code = MUCU) FEW #/LPF FEW Urine Source? Clean CatchDRUGS OF ABUSE SCREEN [id number] 20:47:00* Test Item Value Reference Range Interpretation Comments URN COCAINE (test code = COCAURN) <300 ng/mL URN CANNABINOIDS (test code = CANNABURN) <50 ng/mL URN AMPHETAMINE (test code = AMPHETURN) <1000 ng/mL URN BARBITURATE (test code = BARBITURN) <200 ng/mL URN BENZODIAZEPINE (test code = BENZOURN) <200 ng/mL URN OPIATES (test code = OPIATURN) <300 ng/mL URN PHENCYCLIDINE (PCP) (test code = PHENCURN) <25 ng/ mL URN METHADONE (test code = METHAURN) <300 ng/mL Urine Source? Clean [id number] 16:37:00* Test Item Value Reference Range Interpretation Comments GLUBED (test code = GLUBED) 156 mg/dL 74-106 H Performed by certified developing machine operator at [facility] [id number] 15:09:00* Test Item Value Reference Range Interpretation Comments GLUBED (test code = GLUBED) 34 mg/dL 74-106 LL Test performed as P.O.C. by nursing staff.Performed by certified developing machine operator [facility] Notified~ BASIC METABOLIC [id number] 14:21:00* Test Item Value Reference Range Interpretation Comments SODIUM (test code = NA) 143 mmol/L 136-145 N POTASSIUM (test code = K) 3.8 mmol/L 3.5-5.1 N CHLORIDE (test code = CL) 109.0 mmol/L 98-107 H CARBON DIOXIDE (test code = CO2) 28.0 mmol/L 21-32 N ANION GAP (test code = GAP) 9.8 10-20 L GLUCOSE (test code = GLU) 56 mg/dL 74-106 L BLOOD UREA NITROGEN (test code = BUN) 39 mg/dL 7-18 H GLOMERULAR FILTRATION RATE (test code = GFR) 51 mL/min >=60 Estimated GFR by using Modified MDRD formula.Chronic kidney disease is defined as either kidney damageor GFR <60 mL/min/1.73 m2 for >3 months. CREATININE (test code = CREAT) 1.40 mg/dL 0.7-1.3 H BUN/CREATININE RATIO (test code = BUN/CREA) 27.9 10-20 H CALCIUM (test code = CA) 8.2 mg/dL 8.5-10.1 L HEPATIC FUNCTION [id number] 14:21:00* Test Item Value Reference Range Interpretation Comments TOTAL PROTEIN (test code = PROT) 6.4 gram/dL 6.4-8.2 N ALBUMIN (test code = ALB) 3.2 g/dL 3.4-5.0 L GLOBULIN (test code = GLOB) 3.2 gram/dL 2.7-4.2 N ALBUMIN/GLOBULIN RATIO (test code = A/G) 1.0 0.75-1.50 N BILIRUBIN TOTAL (test code = BILT) 0.10 mg/dL 0.0-1.0 N BILIRUBIN DIRECT (test code = BILD) 0.07 mg/dL 0.0-0.20 N SGOT/AST (test code = AST) 18 IUnit/L 15-37 N SGPT/ALT (test code = ALT) 23 IUnit/L 12-78 N ALKALINE PHOSPHATASE TOTAL (test code = ALKP) 67 IUnit/L 45-117 N Note change in reference range due to change in reagent. [id number] 14:21:00* Test Item Value Reference Range Interpretation Comments TROPONIN-I (test code = TROPI) <0.015 ng/mL 0-0.045 N [id number] 14:21:00* Test Item Value Reference Range Interpretation Comments ALCOHOL (test code = ALC) 3 mg/dL 0.0-3.0 N -- INTERPRETIVE DATA NOTE: POSITIVE SCREENING RESULTS SHOULD BE CONSIDERED PRESUMPTIVE.WHEN COLLECTED FOR MEDICAL PURPOSES ONLY. SPECIMEN WILL NOTBE COLLECTED BY CHAIN OF CUSTODY.IF A CONFIRMATION OF POSITIVE RESULTS IS DESIRED, ACONFIRMATION TEST MUST BE REQUESTED BY THE PHYSICIAN AT ANADDITIONAL CHARGE TO THE PATIENT. BASIC METABOLIC [id number] 14:10:00* Test Item Value Reference Range Interpretation Comments SODIUM (test code = NA) 143 mmol/L 136-145 N POTASSIUM (test code = K) 3.8 mmol/L 3.5-5.1 N CHLORIDE (test code = CL) 109.0 mmol/L 98-107 H CARBON DIOXIDE (test code = CO2) mmol/L 21-32 ANION GAP (test code = GAP) 10-20 GLUCOSE (test code = GLU) mg/dL 74-106 BLOOD UREA NITROGEN (test code = BUN) mg/dL 7-18 GLOMERULAR FILTRATION RATE (test code = GFR) mL/min >=60 CREATININE (test code = CREAT) mg/dL 0.7-1.3 BUN/CREATININE RATIO (test code = BUN/CREA) 10-20 CALCIUM (test code = CA) mg/dL 8.5-10.1 HEPATIC FUNCTION [id number] 14:10:00* Test Item Value Reference Range Interpretation Comments TOTAL PROTEIN (test code = PROT) gram/dL 6.4-8.2 ALBUMIN (test code = ALB) g/dL 3.4-5.0 GLOBULIN (test code = GLOB) gram/dL 2.7-4.2 ALBUMIN/GLOBULIN RATIO (test code = A/G) 0.75-1.50 BILIRUBIN TOTAL (test code = BILT) mg/dL 0.0-1.0 BILIRUBIN DIRECT (test code = BILD) mg/dL 0.0-0.20 SGOT/AST (test code = AST) IUnit/L 15-37 SGPT/ALT (test code = ALT) IUnit/L 12-78 ALKALINE PHOSPHATASE TOTAL (test code = ALKP) IUnit/L 45-117 [id number] 14:10:00* Test Item Value Reference Range Interpretation Comments TROPONIN-I (test code = TROPI) ng/mL 0-0.045 [id number] 14:10:00* Test Item Value Reference Range Interpretation Comments ALCOHOL (test code = ALC) mg/dL 0-3 - CT HEAD/BRAIN W/O [id number] 14:03:00 Name: JOYCE ESTRADA [facility] : 1955 Age/S: 63 / M [address] Unit #: [id number] Loc: [place] [address] Phys: Rio Nguyen Acct: [id number] Dis Date: Status: REG ER PHONE #: [phone] Exam Date: 09/30/2019 1355 FAX #: [phone] Reason: Altered Mental Status EXAMS: CPT CODE: [id number] CT HEAD/BRAIN W/O CONT 78795 HISTORY: Altered Mental Status TECHNIQUE: Noncontrast 2.[address] of the head. Examination acquired within 24 hours of arrival. Automated exposure control for dose reduction; DLP: 930 mGy-cm. COMPARISON: None FINDINGS: No acute hemorrhage. No CT evidence of acute infarct. Chronic anterior right frontal lobe infarct. Mild periventricular chronic microvascular ischemic changes. No intracranial mass or mass effect. Mild parenchymal atrophy with ex vacuo dilation of the ventricular system. No hydrocephalus. No extra-axial fluid collection. Atherosclerotic vascular calcification of the carotid siphons. Visualized paranasal sinuses are clear. Mastoid air cells and middle ear cavities are clear. Left lens implant. Calvarium and skull base are intact. Right zygomaticomaxillary complex fixation hardware. IMPRESSION: No acute intracranial process. LOCATION: LP at 1403 Reported and signed by: Nevin Ray D.O. CC: Rio Nguyen DO Technol ogist:Romaine Gama RT(R)(CT) CTDI: DLP: Trnscb Date/Time: 09/30/2019 (1403) [email or web address] Orig Print D/T: S: 0 (2526) PAGE 1 Signed Report CBC W/AUTO [id number] 14:00:00* Test Item Value Reference Range Interpretation Comments WHITE BLOOD CELL (test code = WBC) 8.7 K/mm3 4.5-12.5 N RED BLOOD CELL (test code = RBC) 3.62 mill/mm3 4.0-5.8 L HEMOGLOBIN (test code = HGB) 9.7 gram/dL 13.0-17.5 L HEMATOCRIT (test code = HCT) 32.2 % 42.0-52.0 L MEAN CELL VOLUME (test code = MCV) 89.0 fL 80-98 N MEAN CELL HGB (test code = MCH) 26.8 picogram 27.0-33.0 L MEAN CELL HGB CONCETRATION (test code = MCHC) 30.1 gram/dL 33.0-36. 0 L RED CELL DISTRIBUTION WIDTH (test code = RDW) 17.0 % 11.6-16. 2 H RED CELL DISTRIBUTION WIDTH SD (test code = RDW-SD) 54.6 fL 37 .0-51.0 H PLATELET COUNT (test code = PLT) 217 K/mm3 150-450 N MEAN PLATELET VOLUME (test code = MPV) 10.6 fL 6.7-11.0 N NEUTROPHIL % (test code = NT%) 46.4 % 39.0-69.0 N IMMATURE GRANULOCYTE % (test code = IG%) 0.3 % 0.0-5.0 N LYMPHOCYTE % (test code = LY%) 42.5 % 25.0-55.0 N MONOCYTE % (test code = MO%) 9.2 % 0.0-10.0 N EOSINOPHIL % (test code = EO%) 1.4 % 0.0-5.0 N BASOPHIL % (test code = BA%) 0.2 % 0.0-1.0 N NUCLEATED RBC % (test code = NRBC%) 0.0 % 0-0 N NEUTROPHIL # (test code = NT#) 4.03 K/mm3 1.8-7.7 N IMMATURE GRANULOCYTE # (test code = IG#) 0.03 x10 3/uL 0-0.03 N LYMPHOCYTE # (test code = LY#) 3.69 K/mm3 1.0-5.0 N MONOCYTE # (test code = MO#) 0.80 K/mm3 0-0.8 N EOSINOPHIL # (test code = EO#) 0.12 K/mm3 0.0-0.5 N BASOPHIL # (test code = BA#) 0.02 K/mm3 0.0-0.2 N NUCLEATED RBC # (test code = NRBC#) 0.00 K/mm3 0.0-0.1 N MANUAL DIFF REQUIRED (test code = MDIFF) NO - XR CHEST 1 [id number] 13:55:00 FAX: Rio Nguyen DO [place]: B St: PRE Name: JOYCE AGUILLON [facility] : [birth year] Age/S: 63/M [address] Unit #: [id number] Loc: [place] [address] Phys: Rio Nguyen DO Acct: [id number] Dis Date: Status: PRE ER PHONE #: [phone] Exam Date: 09/30/2019 1342 FAX #: [phone] Reason: Altered Mental Status EXAMS: CPT CODE: [id number] XR CHEST 1 V 89038 HISTORY: Altered Mental Status TECHNIQUE: AP chest x-ray COMPARISON: 12/21/18 FINDINGS: Low lung volumes with left basilar subsegmental atel ectasis. No airspace consolidation or pleural effusion. Normal heart size. Mediastinal silhouette is unremarkable. Degenerative changes of the spine and shoulders. IMPRESSION: No acute fin dings or significant interval change. LOCA TION: LP Electronically Signed by Nevin Ray D.O. on 09/30 at 135 Reported and signed by: Nevin Ray D.O. CC: Rio Nguyen DO Techn ologist: NED CHENEY(R) Trnscrd Date/Irvin e/By: 09/30/2019 (7057) : By: [email or web address] Orig Print D/T: S: 09/30/2019 (6638) PAGE 1 Signed Report Stress Test - Treadmill [id number] 11:53:00 [place] [address] Patient Name : JOYCE ESTRADA MR #: [id number] : 1955 Age/Sex: 63/M Adm Physician : ANSHU HAILE DO Admit Date : 05/19/19 Location : [place] Room/Bed : REPORT: Myoview Stress Te st DATE OF STUDY: 05/19/2019 07:46:00 Stress Test - Treadmill ONLY PROCEDURE: Rest/stress single isotope SPECT imaging with pharmacologic stres s and gated SPECT imaging. PROCEDURE IN DETAIL: Pharmacologic stress t esting was performed with regadenoson per protocol. The heart rate was 74 estuardo ts per minute at rest and increased to 89 beats per minute during the regadeno son infusion. The rest blood pressure was 132/58 mmHg and decreased to 109/50 mmHg, which is a normal response. The resting electrocardiogram demonstr ated normal sinus rhythm. There were no ST-segment changes suggestive of myoc ardial ischemia. Myocardial perfusion imaging was performed at rest follo wing the injection of 10.9 mCi of tetrofosmin. At peak pharmacologic effect, the patient was injected with 30 mCi of tetrofosmin. Gated post-stress tomogr aphic imaging was performed. FINDINGS: The overall quality of study is f air. Left ventricular cavity is noted to be normal size on the rest and stres s studies. SPECT images demonstrate a small mild perfusion defect in the late ral wall on stress that is not present at rest. Gated SPECT imaging reveals n ormal myocardial thickening and wall motion. Left ventricular ejection fracti on was calculated to be 61%. IMPRESSION: Myocardial perfusion imaging is abnormal. There is a small area of ischemia in the lateral wall. Overall, l eft ventricular systolic function was normal without regional wall motion abno rmalities. Ruperto Taylor ABS/MODL Job #: [id number] Signature Date Dictated By: GRISELDA GILLILAND MD Transcribed By: MODL on 05/25/19 <Electronically signed by GRISELDA GILLILAND MD><<Signature on File>>06/05/19 1511 COPY TO: - XR CHEST 1 [id number] 15:35:00 FAX: Rio Nguyen DO [place]: B St: REG Name: JOYCE AGUILLON [facility] : [birth year] Age[facility]S: 63/[facility] [address] [facility]: [id number] Loc: [place] [address] Phys: Rio Nguyen DO Acct: [id number] Dis Date: Status: REG ER PHONE #: [phone] Exam Date: 12/21/2018 1527 FAX #: [phone] Reason: weakness EXAMS: CPT CODE: [id number] XR CHEST 1 V 65435 REASON FOR EXAM: weakness EXAM ORDER DATE: 12/21/2018 2:51 PM Ordering Brittany: Lena Nguyen DO PROCEDURE: - XR CHEST 1 V COMPARISON : FINDINGS: Portable AP frontal view of the chest obtained at 3:2 7 PM shows clear lungs without evidence of consolidation. There is no evidence of effusion. The heart size is within normal limits. Pulmonary vasculatures are unremarkable. IMPRESSION: No active disease. at 1532 Reported and signed by: Sean Mccollum M.D. CC: Rio Wright DO Technologist: Bennett CHENEY(R) Trnscrd Date/Time/By: 12/21/2018 (15 35) : By: RayL Orig Print D/T: S: 12/21/2018 (7324) PAGE 1 Signed Report URINALYSIS [id number] 14:05:00* Test Item Value Reference Range Interpretation Comments UA COLOR (test code = COLU) YELLOW YELLOW UA APPEARANCE (test code = APPU) CLEAR CLEAR UA GLUCOSE DIPSTICK (test code = DGLUU) >1000 (4+) mg/dL NEGATIVE UA BILIRUBIN DIPSTICK (test code = BILU) NEGATIVE mg/dL NEGATIVE UA KETONE DIPSTICK (test code = KETU) NEGATIVE mg/dL NEGATIVE UA SPECIFIC GRAVITY (test code = SGU) 1.034 1.001-1.035 UA BLOOD DIPSTICK (test code = ÓSCAR) Negative mg/dL NEGATIVE UA PH DIPSTICK (test code = SUKHDEV) 5.5 5.0-8.0 UA PROTEIN DIPSTICK (test code = PROU) NEGATIVE mg/dL NEGATIVE UA UROBILINIOGEN DIPSTICK (test code = URO) Normal mg/dL NEGATIVE UA NITRITE DIPSTICK (test code = GEOFF) NEGATIVE NEGATIVE UA LEUKOCYTE ESTERASE W REFLEX (test code = LEUUR) NEGATIVE Carmela/uL NEGATIVE UA WBC (test code = WBCU) 0-5 per HPF 0-5 UA RBC (test code = RBCU) NONE SEEN per HPF 0-5 UA EPITHELIAL CELLS (test code = EPIU) FEW per HPF FEW UA BACTERIA (test code = BACU) NONE SEEN per HPF NONE UA HYALINE CAST (test code = HYALU) >20 #/LPF 0-5 A UA MUCUS (test code = MUCU) FEW #/LPF FEW Urine Source? Clean CatchURINALYSIS [id number] 13:35:00* Test Item Value Reference Range Interpretation Comments UA COLOR (test code = COLU) YELLOW YELLOW UA APPEARANCE (test code = APPU) CLEAR CLEAR UA GLUCOSE DIPSTICK (test code = DGLUU) >1000 (4+) mg/dL NEGATIVE UA BILIRUBIN DIPSTICK (test code = BILU) NEGATIVE mg/dL NEGATIVE UA KETONE DIPSTICK (test code = KETU) NEGATIVE mg/dL NEGATIVE UA SPECIFIC GRAVITY (test code = SGU) 1.034 1.001-1.035 UA BLOOD DIPSTICK (test code = ÓSCAR) Negative mg/dL NEGATIVE UA PH DIPSTICK (test code = SUKHDEV) 5.5 5.0-8.0 UA PROTEIN DIPSTICK (test code = PROU) NEGATIVE mg/dL NEGATIVE UA UROBILINIOGEN DIPSTICK (test code = URO) Normal mg/dL NEGATIVE UA NITRITE DIPSTICK (test code = GEOFF) NEGATIVE NEGATIVE UA LEUKOCYTE ESTERASE W REFLEX (test code = LEUUR) NEGATIVE Carmela/uL NEGATIVE UA WBC (test code = WBCU) 0-5 per HPF 0-5 UA RBC (test code = RBCU) per HPF 0-5 UA EPITHELIAL CELLS (test code = EPIU) FEW per HPF FEW UA BACTERIA (test code = BACU) per HPF NONE UA HYALINE CAST (test code = HYALU) >20 #/LPF 0-5 A UA MUCUS (test code = MUCU) FEW #/LPF FEW Urine Source? Clean CatchCBC W/O [id number] 13:22:00* Test Item Value Reference Range Interpretation Comments WHITE BLOOD CELL (test code = WBC) 10.4 K/mm3 4.5-12.5 N RED BLOOD CELL (test code = RBC) 4.48 mill/mm3 4.0-5.8 N HEMOGLOBIN (test code = HGB) 13.5 gram/dL 13.0-17.5 N HEMATOCRIT (test code = HCT) 42.2 % 42.0-52.0 N MEAN CELL VOLUME (test code = MCV) 94.2 fL 80-98 N MEAN CELL HGB (test code = MCH) 30.1 picogram 27.0-33.0 N MEAN CELL HGB CONCETRATION (test code = MCHC) 32.0 gram/dL 33.0-36. 0 L RED CELL DISTRIBUTION WIDTH (test code = RDW) 14.6 % 11.6-16. 2 N PLATELET COUNT (test code = PLT) 176 K/mm3 150-450 N MEAN PLATELET VOLUME (test code = MPV) 11.2 fL 6.7-11.0 H CBC W/O [id number] 13:21:00* Test Item Value Reference Range Interpretation Comments WHITE BLOOD CELL (test code = WBC) K/mm3 4.5-12.5 RED BLOOD CELL (test code = RBC) mill/mm3 4.0-5.8 HEMOGLOBIN (test code = HGB) 13.5 gram/dL 13.0-17.5 N HEMATOCRIT (test code = HCT) 42.2 % 42.0-52.0 N MEAN CELL VOLUME (test code = MCV) fL 80-98 MEAN CELL HGB (test code = MCH) picogram 27.0-33.0 MEAN CELL HGB CONCETRATION (test code = MCHC) gram/dL 33.0-36. 0 RED CELL DISTRIBUTION WIDTH (test code = RDW) % 11.6-16. 2 PLATELET COUNT (test code = PLT) K/mm3 150-450 MEAN PLATELET VOLUME (test code = MPV) fL 6.7-11.0 BASIC METABOLIC [id number] 12:53:00* Test Item Value Reference Range Interpretation Comments SODIUM (test code = NA) 137 mmol/L 136-145 N POTASSIUM (test code = K) 4.5 mmol/L 3.5-5.1 N CHLORIDE (test code = CL) 104.0 mmol/L 98-107 N CARBON DIOXIDE (test code = CO2) 26.0 mmol/L 21-32 N ANION GAP (test code = GAP) 11.5 10-20 N GLUCOSE (test code = GLU) 221 mg/dL 74-106 H BLOOD UREA NITROGEN (test code = BUN) 25 mg/dL 7-18 H GLOMERULAR FILTRATION RATE (test code = GFR) > 60 mL/min >=60 Estimated GFR by using Modified MDRD formula.Chronic kidney disease is defined as either kidney damageor GFR <60 mL/min/1.73 m2 for >3 months. CREATININE (test code = CREAT) 1.00 mg/dL 0.7-1.3 N BUN/CREATININE RATIO (test code = BUN/CREA) 25.0 10-20 H CALCIUM (test code = CA) 8.2 mg/dL 8.5-10.1 L HEPATIC FUNCTION [id number] 12:53:00* Test Item Value Reference Range Interpretation Comments TOTAL PROTEIN (test code = PROT) 6.6 gram/dL 6.4-8.2 N ALBUMIN (test code = ALB) 3.7 g/dL 3.4-5.0 N GLOBULIN (test code = GLOB) 2.9 gram/dL 2.7-4.2 N ALBUMIN/GLOBULIN RATIO (test code = A/G) 1.3 0.75-1.50 N BILIRUBIN TOTAL (test code = BILT) 0.30 mg/dL 0.0-1.0 N BILIRUBIN DIRECT (test code = BILD) 0.12 mg/dL 0.0-0.20 N SGOT/AST (test code = AST) 11 IUnit/L 15-37 L SGPT/ALT (test code = ALT) 26 IUnit/L 12-78 N ALKALINE PHOSPHATASE TOTAL (test code = ALKP) 73 IUnit/L 45-117 N Note change in reference range due to change in reagent. [id number] 12:53:00* Test Item Value Reference Range Interpretation Comments LIPASE (test code = LIP) 141 U/L 73.0-393.0 N [id number] 12:53:00* Test Item Value Reference Range Interpretation Comments TROPONIN-I (test code = TROPI) <0.015 ng/mL 0-0.045 N BASIC METABOLIC [id number] 12:41:00* Test Item Value Reference Range Interpretation Comments SODIUM (test code = NA) 137 mmol/L 136-145 N POTASSIUM (test code = K) 4.5 mmol/L 3.5-5.1 N CHLORIDE (test code = CL) 104.0 mmol/L 98-107 N CARBON DIOXIDE (test code = CO2) mmol/L 21-32 ANION GAP (test code = GAP) 10-20 GLUCOSE (test code = GLU) mg/dL 74-106 BLOOD UREA NITROGEN (test code = BUN) mg/dL 7-18 GLOMERULAR FILTRATION RATE (test code = GFR) mL/min >=60 CREATININE (test code = CREAT) mg/dL 0.7-1.3 BUN/CREATININE RATIO (test code = BUN/CREA) 10-20 CALCIUM (test code = CA) mg/dL 8.5-10.1 HEPATIC FUNCTION [id number] 12:41:00* Test Item Value Reference Range Interpretation Comments TOTAL PROTEIN (test code = PROT) gram/dL 6.4-8.2 ALBUMIN (test code = ALB) g/dL 3.4-5.0 GLOBULIN (test code = GLOB) gram/dL 2.7-4.2 ALBUMIN/GLOBULIN RATIO (test code = A/G) 0.75-1.50 BILIRUBIN TOTAL (test code = BILT) mg/dL 0.0-1.0 BILIRUBIN DIRECT (test code = BILD) mg/dL 0.0-0.20 SGOT/AST (test code = AST) IUnit/L 15-37 SGPT/ALT (test code = ALT) IUnit/L 12-78 ALKALINE PHOSPHATASE TOTAL (test code = ALKP) IUnit/L 45-117 [id number] 12:41:00* Test Item Value Reference Range Interpretation Comments LIPASE (test code = LIP) U/L 73.0-393.0 [id number] 12:41:00* Test Item Value Reference Range Interpretation Comments TROPONIN-I (test code = TROPI) ng/mL 0-0.045
--- OUTSIDE RECORDS SUMMARY | 2020-03-15 18:51 | XMS REPORT | Continuity of Care Document ---
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 Name Role Phone MD Zara HENRY PCP MARCELO SALOMON Attphys Unavailable Ej HAILE Attphys Unavailable Payers Payer Name Policy Type Policy Number Effective Date Expiration Date S ource Problems Condition Name Condition Details Condition Category Status Onset Date Resolution Date Last Treatment Date Treating Clinician Comments Source Pneumonia Problem Active [facility] Anemia Problem Active [facility] Fever Problem Active [facility] Allergies, Adverse Reactions, Alerts Allergy Name Allergy Type Status Severity Reaction(s) Onset Date Inacti ve Date Treating Clinician Comments Source No Known Allergies DA Active U 2018-12-21 00:00:[address] [facility] No Known Contrast Allergies DA Active U 2008-05-24 00:00: [address] [facility] No Known Drug Allergies DA Active U 2008-05-24 00:00:[address] [facility] No Known Food Allergies DA Active U 2008-05-24 00:00:[address] [facility] No Known Other Allergies DA Active U 2008-05-24 00:00:[address] [facility] Social History Social Habit Start Date Stop Date Quantity Comments Source Sex Assigned At 1955 00:00:00 1955 00:00:00 Male [facility] Medications Ordered Medication Name Filled Medication Name Start Date Stop Da te Current Medication? Ordering Clinician Indication Dosage Frequency Signature (SIG) Comments Components Source Amoxicillin/Potassium Clav (Augmentin 875-125 Tablet) 1 Each TABLET Amoxicillin/Potassium Clav (Augmentin 875-125 Tablet) 1 Each TABLET Yes 875 Twice A Day [facility] Dexamethasone (Decadron) 6 Mg TABLET Dexamethasone (Decadron) 6 Mg TABLET Yes 6 Daily [facility] Dutasteride (Avodart) 0.5 Mg CAPSULE Dutasteride (Avodart) 0.5 Mg C APSULE Yes .5 Daily [facility] Famotidine Famotidine Yes 40 Daily [facility] Ferrous Sulfate (Iron) 325 Mg TABLET Ferrous Sulfate (Iron) 325 Mg TABLET Yes Daily [facility] Linagliptin/Metformin Hcl (Jentadueto 2.5 Mg-1000 Mg T ab) 1 Each TABLET Linagliptin/Metformin Hcl (Jentadueto 2.5 Mg-1000 Mg Tab) 1 Each TABLET Yes 1 Twice A Day [facility] Lovastatin Lovastatin Yes Bedtime [facility] Tamsulosin Hcl (Flomax*) 0.4 Mg CAP Tamsulosin Hcl (Flomax*) 0.4 Mg C AP Yes .4 Daily [facility] Vital Signs Vital Name Observation Time Observation Value Comments Source Body Temperature 2020-03-13 16:45:00 97.7 [degF] [facility] Weight 2020-03-13 01:05:00 191.06 [lb_av] [facility] BMI (Body Mass Index) 2020-03-13 01:05:00 31.8 kg/m2 [facility] Procedures This patient has no known procedures. Plan of Care Planned Activity Planned Date Details Comments Source Instructions COVID-19: 10/30/2019 [facility] Instructions Diabetes and Diet [facility] Instructions Infection Control [facility] Instructions Pneumonia - Viral [facility] Encounters Start Date/Time End Date/Time Encounter Type [facility] Department Encounter ID Source 2020-03-11 10:38:00 2020-03-13 17:55:00 Discharged Inpatient 1 MARCELO SALOMON [facility] [id number] [facility] 2019-05-19 07:24:00 2019-05-19 07:24:00 Registered Clinic 3 ANSHU HAILE [facility] [id number] [facility] Results Test Description Test Time Test Comments Results Result Comments Source Capillary blood glucose measurement by glucometer (mas s/volume) 2020-03-13 07:53:00 Test Item Bedside Glucose (test code = 58370-9) 171 70-120 Meter ID: [id number]udaBlood leukocytes automated count (number/volume)2020-03-12 05:20:00* Test Item Value Reference Range Interpretation Comments White Blood Count (test code = 6690-2) 5.81 4.8-10.8 [facility] erythrocytes automated count (number/volume)2020-03-12 05:20:00* Test Item Value Reference Range Interpretation Comments Red Blood Count (test code = 789-8) 2.75 4.3-5.7 [facility] hemoglobin measurement (moles/volume)2020-03-12 05:20:00* Test Item Value Reference Range Interpretation Comments Hemoglobin (test code = 85446-6) 7.1 14.0-18.0 [facility]udaAutomated blood hematocrit (volume fraction)2020-03-12 05:20:00* Test Item Value Reference Range Interpretation Comments Hematocrit (test code = 4544-3) 22.7 38.2-49.6 [facility]udaAutomated erythrocyte mean corpuscular kzebwt8887-66-45 05:20:00* Test Item Value Reference Range Interpretation Comments Mean Corpuscular Volume (test code = 787-2) 82.5 81-99 [facility]udaAutomated erythrocyte mean corpuscular hemoglobin (mass per erythrocyte)2020-03-12 05:20:00* Test Item Value Reference Range Interpretation Comments Mean Corpuscular Hemoglobin (test code = 785-6) 25.8 28-32 [facility]udaAutomated erythrocyte mean corpuscular hemoglobin concentration measurement (mass/volume)2020-03-12 05:20:00* Test Item Value Reference Range Interpretation Comments Mean Corpuscular Hemoglobin Concent (test code = 786-4) 31.3 31-35 [facility] BudaRDW FtwTz-Jzp1353-64-28 05:20:00* Test Item Value Reference Range Interpretation Comments Red Cell Distribution Width (test code = 30005-0) 16.1 11.7 -14.4 [facility]udaAutomated blood platelet count (count/volume)2020-03-12 05:20:00* Test Item Value Reference Range Interpretation Comments Platelet Count (test code = 777-3) 474 140-360 [facility] BudaAutomated blood segmented neutrophil count as percentage of total otwielyymd0482-86-94 05:20:00* Test Item Value Reference Range Interpretation Comments Neutrophils (%) (Auto) (test code = 40870-1) 76.0 38.7-80.0 [facility]udaAutomated blood lymphocyte count as percentage ot total veraaqhcds3091-64-29 05:20:00* Test Item Value Reference Range Interpretation Comments Lymphocytes (%) (Auto) (test code = 736-9) 13.9 18.0-39.1 [facility]udaAutomated blood monocyte count as percentage of total xgndxfwicf8635-22-84 05:20:00* Test Item Value Reference Range Interpretation Comments Monocytes (%) (Auto) (test code = 5905-5) 8.1 4.4-11.3 [facility]udaAutomated blood eosinophil count as percentage of total tpulqcaskh6024-55-15 05:20:00* Test Item Value Reference Range Interpretation Comments Eosinophils (%) (Auto) (test code = 713-8) 0.3 0.0-6.0 [facility]udaAutomated blood basophil count as percentage of total csegvlsjlf0759-50-41 05:20:00* Test Item Value Reference Range Interpretation Comments Basophils (%) (Auto) (test code = 706-2) 0.5 0.0-1.0 [facility] BudaFluoroscopic procedure less than one hour reoouuen9814-37-40 05:20:00* Test Item Value Reference Range Interpretation Comments IM GRANULOCYTES % (test code = IM GRANULOCYTES %) 1.2 0.0- 1.0 [facility]udaAutomated blood neutrophil count 2020-03-12 05:20:00* Test Item Value Reference Range Interpretation Comments Neutrophils # (Auto) (test code = 751-8) 4.4 2.1-6.9 [facility]uda[facility] lymphocytes count (number/volume) 2020-03-12 05:20:00* Test Item Value Reference Range Interpretation Comments Lymphocytes # (Auto) (test code = 72584-1) 0.8 1.0-3.2 [facility] monocytes automated count (number/volume)2020-03-12 05:20:00* Test Item Value Reference Range Interpretation Comments Monocytes # (Auto) (test code = 742-7) 0.5 0.2-0.8 [facility]udaAutomated blood eosinophil count 2020-03-12 05:20:00* Test Item Value Reference Range Interpretation Comments Eosinophils # (Auto) (test code = 711-2) 0.0 0.0-0.4 [facility]udaAutomated blood basophil count (count/volume)2020-03-12 05:20:00* Test Item Value Reference Range Interpretation Comments Basophils # (Auto) (test code = 704-7) 0.0 0.0-0.1 [facility] BudaFluoroscopic procedure less than one hour joptfyep1806-41-36 05:20:00* Test Item Value Reference Range Interpretation Comments Absolute Immature Granulocyte (auto (marcelina t code = Absolute Immature Granulocyte (auto) 0.07 0-0.1 [facility] sodium measurement (moles/volume)2020-03-12 05:20:00* Test Item Value Reference Range Interpretation Comments Sodium Level (test code = 2951-2) 133 136-145 [facility]ererum or plasma potassium measurement (moles/volume)2020-03-12 05:20:00* Test Item Value Reference Range Interpretation Comments Potassium Level (test code = 2823-3) 3.8 3.5-5.1 [facility]ererum or plasma chloride measurement (moles/volume)2020-03-12 05:20:00* Test Item Value Reference Range Interpretation Comments Chloride Level (test code = 2075-0) 101 98-107 [facility] Centererum or plasma carbon dioxide, total measurement (moles/volume)2020-03-12 05:20:00* Test Item Value Reference Range Interpretation Comments Carbon Dioxide Level (test code = 2028-9) 23 22-29 [facility] Centererum or plasma anion uxe1090-50-14 05:20:00* Test Item Value Reference Range Interpretation Comments Anion Gap (test code = 35632-4) 12.8 8-16 [facility] Centererum or plasma urea nitrogen measurement (mass/volume)2020-03-12 05:20:00* Test Item Value Reference Range Interpretation Comments Blood Urea Nitrogen (test code = 3094-0) 13 7-26 [facility] Centererum or plasma creatinine measurement (mass/volume)2020-03-12 05:20:00* Test Item Value Reference Range Interpretation Comments Creatinine (test code = 2160-0) 0.84 0.72-1.25 [facility] Centererum or plasma urea nitrogen/creatinine mass vwyiw9885-88-04 05:20:00* Test Item Value Reference Range Interpretation Comments BUN/Creatinine Ratio (test code = 3097-3) 15 6-25 [facility] BudaEstimated glomerular filtration rate (GFR) mfccsaxvecayc0467-58-26 05:20:00* Test Item Value Reference Range Interpretation Comments Estimat Glomerular Filtration Rate (test code = 848095714) > 60 >60 Ranges were taken from the National Kidney Disease Education Program and the [facility] Kidney Foundation literature.Reference ranges:60 or greater: Tlxfhi35-54 ( for 3 consecutive months): Chronic kidney disease 15 or less: Kidney failureBaylor Scott & White Medical Center – BudaGlucose edyivosprsc5803-84-34 05:20:00* Test Item Value Reference Range Interpretation Comments Glucose Level (test code = GWI6069) 175 74-118 [facility] Centererum or plasma calcium measurement (mass/volume)2020-03-12 05:20:00* Test Item Value Reference Range Interpretation Comments Calcium Level (test code = 92862-3) 7.8 8.4-10.2 [facility] BudaFluoroscopic procedure less than one hour txysmdvc1528-11-70 05:20:00* Test Item Value Reference Range Interpretation Comments Hemoglobin A1c Percent (test code = Hemoglobin A1c Percent) 7.0 4.0-7.0 [facility] Centererum or plasma total bilirubin measurement (mass/volume)2020-03-12 05:20:00* Test Item Value Reference Range Interpretation Comments Total Bilirubin (test code = 1975-2) 0.3 0.2-1.2 [facility] BudaFluoroscopic procedure less than one hour cttafbro7172-65-80 05:20:00* Test Item Value Reference Range Interpretation Comments Aspartate Amino Transf (AST/SGOT) (test code = Aspartate Amino Transf (AST/SGOT)) 94 5-34 [facility] Centererum or plasma alanine aminotransferase measurement (enzymatic activity/volume)2020-03-12 05:20:00* Test Item Value Reference Range Interpretation Comments Alanine Aminotransferase (ALT/SGPT) (test code = 1742-6) 42 0-55 [facility] Centererum or plasma protein measurement (mass/volume)2020-03-12 05:20:00* Test Item Value Reference Range Interpretation Comments Total Protein (test code = 2885-2) 5.6 6.5-8.1 [facility] Centererum or plasma albumin measurement (mass/volume)2020-03-12 05:20:00* Test Item Value Reference Range Interpretation Comments Albumin (test code = 1751-7) 1.9 3.5-5.0 [facility] BudaPlasma globulin measurement (mass/volume) 2020-03-12 05:20:00* Test Item Value Reference Range Interpretation Comments Globulin (test code = 99978-2) 3.7 2.3-3.5 [facility] Centererum or plasma albumin/globulin mass eutvm9852-09-61 05:20:00* Test Item Value Reference Range Interpretation Comments Albumin/Globulin Ratio (test code = 1759-0) 0.5 0.8-2.0 [facility] Centererum or plasma alkaline phosphatase measurement (enzymatic activity/volume)2020-03-12 05:20:00* Test Item Value Reference Range Interpretation Comments Alkaline Phosphatase (test code = 6768-6) 89 40-150 [facility] Centererum or plasma triglyceride measurement (mass/volume)2020-03-12 05:20:00* Test Item Value Reference Range Interpretation Comments Triglycerides Level (test code = 2571-8) 205 0-149 [facility] Centererum or plasma cholesterol measurement (mass/volume)2020-03-12 05:20:00* Test Item Value Reference Range Interpretation Comments Cholesterol Level (test code = 2093-3) 101 0-199 Less than 200 mg/dL Low Xnyn614 - 239 mg/dL Borderline Hgre634 m g/dl and greater High Risk [facility] Centererum or plasma cholesterol in LDL measurement (mass/volume) 2020-03-12 05:20:00* Test Item Value Reference Range Interpretation Comments LDL Cholesterol (test code = 2089-1) 51 60-130 [facility] Centererum or plasma cholesterol in HDL measurement (mass/volume)2020-03-12 05:20:00* Test Item Value Reference Range Interpretation Comments HDL Cholesterol (test code = 2085-9) 9 40-60 [facility] Centererum or plasma total cholesterol/cholesterol in HDL mass mqwrx8440-38-33 05:20:00* Test Item Value Reference Range Interpretation Comments Cholesterol/HDL Ratio (test code = 9830-1) 11.2 3.9-4.7 [facility] BudaUrine color rtukpkhvygnbb8543-38-16 19:05:00* Test Item Value Reference Range Interpretation Comments Urine Color (test code = 5778-6) YELLOW YELLOW [facility] BudaUrine mgziyxg4928-01-93 19:05:00* Test Item Value Reference Range Interpretation Comments Urine Clarity (test code = 04532-3) SL CLOUDY CLEAR [facility] Centerpecific gravity of Urine by Test strip 2020-03-11 19:05:00* Test Item Value Reference Range Interpretation Comments Urine Specific [place] (test code = 5811-5) 1.010 1.010-1.02 5 [facility] BudaUrine pH measurement by automated test guowp5396-55-32 19:05:00* Test Item Value Reference Range Interpretation Comments Urine pH (test code = 90158-4) 6 5-7 [facility] BudaUrine leukocyte esterase detection by pnbsxrdo1639-82-21 19:05:00* Test Item Value Reference Range Interpretation Comments Urine Leukocyte Esterase (test code = 5799-2) NEGATIVE NEGATIVE [facility] BudaUrine nitrite ydpudmbjo3953-85-66 19:05:00* Test Item Value Reference Range Interpretation Comments Urine Nitrite (test code = 67068-5) NEGATIVE NEGATIVE [facility] BudaUrine protein measurement by test strip (mass/volume)2020-03-11 19:05:00* Test Item Value Reference Range Interpretation Comments Urine Protein (test code = 5804-0) 1+ NEGATIVE [facility] BudaUrine glucose hudzknaed6839-35-12 19:05:00* Test Item Value Reference Range Interpretation Comments Urine Glucose (UA) (test code = 2349-9) 2+ NEGATIVE [facility] BudaUrine ketones detection by automated test ppnii3244-74-27 19:05:00* Test Item Value Reference Range Interpretation Comments Urine Ketones (test code = 55156-9) TRACE NEGATIVE [facility] BudaUrine urobilinogen measurement by test strip (mass/volume)2020-03-11 19:05:00* Test Item Value Reference Range Interpretation Comments Urine Urobilinogen (test code = 20829-4) 0.2 0.2-1 [facility] BudaUrine total bilirubin measurement (mass/volume)2020-03-11 19:05:00* Test Item Value Reference Range Interpretation Comments Urine Bilirubin (test code = 1978-6) NEGATIVE NEGATIVE [facility] BudaUrine erythrocytes wlvdjirga4203-03-67 19:05:00* Test Item Value Reference Range Interpretation Comments Urine Blood (test code = 14825-0) NEGATIVE NEGATIVE [facility] BudaAutomated urine sediment leukocyte count by microscopy (number/high power field)2020-03-11 19:05:00* Test Item Value Reference Range Interpretation Comments Urine WBC (test code = 5821-4) NONE 0-5 [facility] BudaErythrocytes detection in urine sediment by light qafkadgyxg8070-88-73 19:05:00* Test Item Value Reference Range Interpretation Comments Urine RBC (test code = 00669-6) NONE 0-5 [facility] BudaBacteria detection in urine sediment by light bargggggok1517-66-12 19:05:00* Test Item Value Reference Range Interpretation Comments Urine Bacteria (test code = 43175-7) FEW NONE [facility] BudaEpithelial cells detection in urine sediment by light ohmdpmbppd4003-72-55 19:05:00* Test Item Value Reference Range Interpretation Comments Urine Epithelial Cells (test code = 44146-8) NONE NONE [facility] BudaCHEST SINGLE (PORTABLE)2020-03-11 12:24:00 [facility] [address] [place] [address] Patient Name: JOYCE ESTRADA MR #: [id number] : 1955 Age/Sex: 64/M Req #: [id number] Adm Physician: Ordered by: MARCELO SALOMON MD Report #: [id number] Location: ER Room/Bed: Procedure: [id number] DX/CHEST SINGL E (PORTABLE) Exam Date: 03/11/20 [...] MD Fluoroscopic procedure less than one hour iadydtgd2801-20-27 11:05:00* Test Item Value Reference Range Interpretation Comments Lactic Acid Level (test code = Lactic Acid Level) 1.3 0.5- 2.0 [facility] BudaTroponin I measurement by highly sensitive enzyme ucfkwskoqtx6310-47-52 11:05:00* Test Item Value Reference Range Interpretation Comments Troponin I (test code = 47812-2) 0.055 0-0.300 [facility] BudaBlood bnobwfe5131-60-99 11:05:00* Test Item Value Reference Range Interpretation Comments Blood Culture (test code = 08766490) NO GROWTH AFTER 48 HOURS [facility] BudaFluoroscopic procedure less than one hour ykiiduaz9079-77-09 10:40:00* Test Item Value Reference Range Interpretation [...] from individuals suspected of COVID-19 by their [facility] provider. This test has not been [...] under 564(g) of the ACT.Testing performed by [address] [id number] [place], [place] [address]GLUBED2020-02-16 12:08:00* Test Item Value Reference Range Interpretation Comments GLUBED (test code = GLUBED) 181 mg/dL 74-106 H Performed by certified tavern operator at [facility] URINALYSIS CLFFQHSZ6624-26-02 21:50:00* Test Item Value Reference Range Interpretation [...] Urine Source? Clean CatchDRUGS OF ABUSE SCREEN CA4350-61-18 21:50:00* Test Item Value Reference Range Interpretation [...] NEGATIVE <300 ng/mL Urine Source? Clean CatchURINALYSIS DOVXJRAV9272-39-13 20:47:00* Test Item Value Reference Range Interpretation [...] Urine Source? Clean CatchDRUGS OF ABUSE SCREEN [id number] 20:47:00* Test Item Value Reference Range Interpretation [...] = [place]) <300 ng/mL Urine Source? Clean CnaysVDIILC6486-52-83 16:37:00* Test Item Value Reference Range Interpretation Comments GLUBED (test code = GLUBED) 156 mg/dL 74-106 H Performed by certified tavern operator at [facility] NTKVSV6493-69-54 15:09:00* Test Item Value Reference Range Interpretation Comments GLUBED (test code = GLUBED) 34 mg/dL 74-106 LL Test performed as P.O.C. by nursing staff.Performed by certified tavern operator at [facility] CenterDoctor Notified~ BASIC METABOLIC WYOTW0580-34-01 14:21:00* Test Item Value Reference Range Interpretation [...] CA) 8.2 mg/dL 8.5-10.1 L HEPATIC FUNCTION CGGMF2962-66-14 14:21:00* Test Item Value Reference Range Interpretation [...] reference range due to change in reagent. [id number]-[id number] 14:21:00* Test Item Value Reference Range Interpretation Comments TROPONIN-I (test code = TROPI) <0.015 ng/mL 0-0.045 N XEHBOWV7481-15-77 14:21:00* Test Item Value Reference Range Interpretation [...] ANADDITIONAL CHARGE TO THE PATIENT. BASIC METABOLIC KBAOR9433-63-24 14:10:00* Test Item Value Reference Range Interpretation [...] code = CA) mg/dL 8.5-10.1 HEPATIC FUNCTION [id number] 14:10:00* Test Item Value Reference Range Interpretation [...] TOTAL (test code = ALKP) IUnit/L 45-117 UZOYXPJT-Z5091-60-15 14:10:00* Test Item Value Reference Range Interpretation Comments TROPONIN-I (test code = TROPI) ng/mL 0-0.045 HWUIBXI1563-70-69 14:10:00* Test Item Value Reference Range Interpretation Comments ALCOHOL (test code = ALC) mg/dL 0-3 - CT HEAD/BRAIN W/O [id number] 14:03:00 Name: JOYCE ESTRADA [facility] : 1955 Age/S: 63 / M [address] Unit #: [id number] Loc: [place] [address] Phys: Rio Nguyen Acct: [id number] Dis Date: Status: REG ER PHONE #: [phone] Exam Date: 09/30/2019 1355 FAX #: [phone] Reason: Altered Mental Status EXAMS: CPT CODE: [id number] CT HEAD/BRAIN W/O CONT 17563 HISTORY: Altered Mental Status TECHNIQUE: Noncontrast 2.5 [...] (1403) [email or web address] Orig Print D/T: S: 0 (6576) PAGE 1 Signed Report CBC W/AUTO [id number] 14:00:00* Test Item Value Reference Range Interpretation [...] = MDIFF) NO - XR CHEST 1 [id number] 13:55:00 FAX: Rio Nguyen DO [place]: B St: PRE Name: JOYCE AGUILLON [facility] : [birth year] Age/S: 63/M [address] [facility] Unit #: [id number] Loc: [place] [address] Phys: Rio Nguyen DO Acct: [id number] Dis Date: Status: PRE ER PHONE #: [phone] Exam Date: 09/30/2019 1342 FAX #: [phone] Reason: Altered Mental Status EXAMS: CPT CODE: [id number] XR CHEST 1 V 62470 HISTORY: Altered Mental Status TECHNIQUE: AP chest x-ray COMPARISON: 12/21/18 FINDINGS: Low lung volumes with left basilar subsegmental atel ectasis. No airspace consolidation or pleural effusion. Normal heart size. Mediastinal silhouette is unremarkable. Degenerative changes of the spine and shoulders. IMPRESSION: No acute fin dings or significant interval change. LOCA TION: LP Electronically Signed by Nevin Ray D.O. on 09/30 at 1354 Reported and signed by: Nevin Ray D.O. CC: Rio Nguyen DO Techn ologist: NED CHENEY(R) Trnscrd Date/Irvin e/By: 09/30/2019 (1853) : By: [email or web address] Orig Print D/T: S: 09/30/2019 (8694) PAGE 1 Signed Report Stress Test - Treadmill PUFL3505-66-10 11:53:00 [place] [address] Patient Name : JOYCE ESTRADA MR #: [id number] : 1955 Age/Sex: 63/M Adm Physician : ANSHU HAILE DO Admit Date : 05/19/19 Location : IN Room/Bed : REPORT: Myoview Stress Te st [...] rmalities. Ruperto Taylor ABS/MODL Job #: [id number] Signature Date Dictated By: GRISELDA GILLILAND MD Transcribed By: MODL on 05/25/19 <Electronically signed by GRISELDA GILLILAND MD><<Signature on File>>06/05/19 1511 COPY TO: - XR CHEST 1 [id number] 15:35:00 FAX: Rio Nguyen DO Orient: B St: REG Name: [facility] : 10/28/18 [birth year] Age/S: 63/M [address] [facility] [facility] Unit #: [id number] Loc: [place] [address] Phys: Rio Nguyen DO Acct: [id number] Dis Date: Status: REG ER PHONE #: [phone] Exam Date: 12/21/2018 1527 FAX #: [phone] Reason: weakness EXAMS: CPT CODE: [id number] XR CHEST 1 V 88926 REASON FOR EXAM: weakness EXAM ORDER DATE: [...] are unremarkable. IMPRESSION: No active disease. at 1536 Reported and signed by: Sean Mccollum M.D. CC: Rio Wright DO Technologist: Bennett CHENEY(R) Trnscrd Date/Time/By: 12/21/2018 (15 35) : By: RayL Orig Print D/T: S: 12/21/2018 (7493) PAGE 1 Signed Report URINALYSIS [id number] 14:05:00* Test Item Value Reference Range Interpretation [...] FEW #/LPF FEW Urine Source? Clean CatchURINALYSIS [id number] 13:35:00* Test Item Value Reference Range Interpretation [...] #/LPF FEW Urine Source? Clean CatchCBC W/O [id number] 13:22:00* Test Item Value Reference Range Interpretation [...] MPV) 11.2 fL 6.7-11.0 H CBC W/O [id number] 13:21:00* Test Item Value Reference Range Interpretation [...] code = MPV) fL 6.7-11.0 BASIC METABOLIC [id number] 12:53:00* Test Item Value Reference Range Interpretation [...] CA) 8.2 mg/dL 8.5-10.1 L HEPATIC FUNCTION [id number] 12:53:00* Test Item Value Reference Range Interpretation [...] reference range due to change in reagent. [id number] 12:53:00* Test Item Value Reference Range Interpretation Comments LIPASE (test code = LIP) 141 U/L 73.0-393.0 N [id number] 12:53:00* Test Item Value Reference Range Interpretation Comments TROPONIN-I (test code = TROPI) <0.015 ng/mL 0-0.045 N BASIC METABOLIC [id number] 12:41:00* Test Item Value Reference Range Interpretation [...] code = CA) mg/dL 8.5-10.1 HEPATIC FUNCTION [id number] 12:41:00* Test Item Value Reference Range Interpretation [...] TOTAL (test code = ALKP) IUnit/L 45-117 [id number] 12:41:00* Test Item Value Reference Range Interpretation Comments LIPASE (test code = LIP) U/L 73.0-393.0 [id number] 12:41:00* Test Item Value Reference Range Interpretation Comments TROPONIN-I (test code = TROPI) ng/mL 0-0.045
== END 2020-03-13 17:55 | disposition home or self-care (01) | DRG 177 ==
LOC: ER 10:34 → ERHOLD 10:38 → UNDOADMIN 10:38 → IMCU 21:15 → ERHOLD 21:15 → UNDODISIN 03-13 17:55
PROVIDERS: ADMIT Internal Medicine; ATTEND Internal Medicine
DX: U07.1 COVID-19 (principal); J12.89 Other viral pneumonia; J96.00 Acute respiratory failure, unspecified whether with hypoxia or hypercapnia; J15.9 Unspecified bacterial pneumonia; E87.1 Hypo-osmolality and hyponatremia; I10 Essential (primary) hypertension; E11.9 Type 2 diabetes mellitus without complications; I25.10 Atherosclerotic heart disease of native coronary artery without angina pectoris; K21.9 Gastro-esophageal reflux disease without esophagitis; E78.5 Hyperlipidemia, unspecified; N40.0 Benign prostatic hyperplasia without lower urinary tract symptoms; Z87.891 Personal history of nicotine dependence; D50.0 Iron deficiency anemia secondary to blood loss (chronic); E88.09 Other disorders of plasma-protein metabolism, not elsewhere classified
CPT/HCPCS: 36415; 71045; 80053; 80061; 81001; 82948; 83036; 83605; 84484; 85025; 87040; 93005; 97139; 99284; J0456; J0696; J1100; J1650; J2543; J7030; J7050; U0002

== ENCOUNTER → 2020-04-18 | Day surgery (SDC) | payer MEDICARE, OTHER ==
[2020-04-15 10:55] LABS: BASOPHILS % 0.6 % (0.0-1.0); EOSINOPHILS # (AUTO) 0.1 (0.0-0.4); EOSINOPHILS % 1.6 % (0.0-6.0); HEMOGLOBIN 11.1 g/dL (14.0-18.0); LYMPHOCYTES # (AUTO) 2.1 (1.0-3.2); LYMPHOCYTES % 30.6 % (18.0-39.1); MEAN CORPUSCULAR HEMOGLOBIN 24.6 pg (28-32); MEAN CORPUSCULAR HGB CONC 29.2 g/dL (31-35); MEAN CORPUSCULAR VOLUME 84.3 fL (81-99); MONOCYTES # (AUTO) 0.7 (0.2-0.8); MONOCYTES % 10.5 % (4.4-11.3); NEUTROPHILS # (AUTO) 3.8 (2.1-6.9); NEUTROPHILS % 56.1 % (38.7-80.0); PLATELET COUNT 334 x10e3/uL (140-360); RED BLOOD COUNT 4.51 x10e6/uL (4.3-5.7); RED CELL DISTRIBUTION WIDTH 17.5 % (11.7-14.4)
[2020-04-15 11:18] LABS: INR 0.92; PROTHROMBIN TIME 12.8 seconds (11.9-14.5)
[2020-04-15 11:26] LABS: ALANINE AMINOTRANSFERASE 14 IU/L (0-55); ALBUMIN 3.6 g/dL (3.5-5.0); ALBUMIN/GLOBULIN RATIO 1.1 (0.8-2.0); ALKALINE PHOSPHATASE 79 IU/L (40-150); ANION GAP 15.6 mmol/L (8-16); BLOOD UREA NITROGEN 9 mg/dL (7-26); BUN/CREATININE RATIO 12 (6-25); CALCIUM 8.9 mg/dL (8.4-10.2); CARBON DIOXIDE 24 mmol/L (22-29); CHLORIDE 103 mmol/L (98-107); CREATININE, SERUM 0.75 mg/dL (0.72-1.25); EST GLOMERULAR FILTRATION RATE > 60 ML/MIN (60-); GLUCOSE 151 mg/dL (74-118); POTASSIUM 4.6 mmol/L (3.5-5.1); SODIUM 138 mmol/L (136-145)
[~2020-04-18] VITALS: Ht 165.1 cm; Wt 69.4 kg
[2020-04-18] VITALS (12 sets, daily range): BP systolic 88–159; BP diastolic 59–88
[~2020-04-18] MED LIST changes: +ASPIRIN 325 MG TAB ONE; +AUGMENTIN 875-1 EACH PO; +AVODART0.5 MG PO; +DECADRON6 MG PO; +FAMOTIDINE20 MG PO; +FENTANYL CITRATE/PF 100MCG/2 ML INJ ONE; +FLOMAX0.4 MG PO; +HEPARIN SOD/SOD CHLORIDE 2,000 ML ONE; +IOPAMIDOL 370 MG/ML 200 ML INFUS..BTL INJ ONE; +IRON325 M1 PO; +JENTADUETO 2.51 EAC2 PO; +LIDOCAINE HCL 2% LOCAL 20 ML VIAL ONE; +LOVASTATIN40 MG PO; +MIDAZOLAM HCL 2 MG/2 ML VIAL ONE; +PANTOPRAZOLE SO40 MG PO; -REGADENOSON 0.4 MG/5 ML SYR IV ONE; +SODIUM CHLORIDE 0.9% 1000ML 1,000 ML ONE; +TICAGRELOR 90 MG TABLET ONE; +TRESIBA FL200 UNIT/1 SC; +[UNRECOGNIZED DRUG - OTHER] PO
--- NOTE | 2020-04-18 10:00 | NUR ---
1000xxx am PREP NOTE PROCEDRAL .................................................................................. pt in rm #10, prepped for procedure. Identiferx2 Alert oriented and appropriate, PERRLA, respirations even and unlabored to room air. Pulses x4 extremities equal and faint. Pedal pulses PT/DP weak to nonexistent and marked. Cap fill brisk < 3 sec. bilateral feet semi cool and pale. for [facility] Dr Rodriguez CP 2+ pressure only abnormal stress. Skin warm and dry integrity appears intact in general. IV left hand 20g,started by Barbara x1 and presents healthy w/o s/s of infiltration or complaint. NS 0.9% started at 100ml/hr per dial flow. Abdomen soft and supple. pt offered toileting, denies need to urinate or defecate. Personal affects with patient. Family at bedside. Pt and family verbalizes understanding of POC . BS 166 Covid negative had recient positive covid admission but clean at this time.ds/rn
--- NOTE | 2020-04-18 10:15 | NUR ---
1015 hand off completed to Cabrera RN
--- NOTE | 2020-04-18 11:41 | NUR ---
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 Bedside report received from CHINYERE Rees. Identifierx2. Alert oriented and appropriate, PERRLA, respirations even and unlabored to room air. Pulses x4 extremities equal and strong. Pedal pulses PT/DP X4 and marked. Cap fill brisk < 3 sec. Rt groin Mynx intact No gross issues pain,pallor pressure or dysrhythmia. Skin warm and dry integrity appears D/I IV 20g to left ,presents healthy w/o s/s of infiltration or complaint. Abdomen soft and supple. pt offered toileting, denies need to urinate or defecate. No personal affects with patient. Family at bedside. Pt and family verbalizes understanding of POC. Currently w/o complaint of pain or need. ds/rn
--- NOTE | 2020-04-18 14:00 | NUR ---
1400pm tolerating po intake Ok to dc home 1545pm ds/rn
--- NOTE | 2020-04-18 15:45 | NUR ---
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 Rt groin Mynx site assessed for s/s of complication and presecence of hematoma. Skin warm, dry, no discolor, and pulses present. IV removed from left hand. Distal tip appears intact. VS WNL. Pt denies pain, sob, or need at this time. Family at bedside. Review of discharge paperwork and follow up instructions. verbalized understanding. Pt to wheelchair and transported to front of hospital. Transferred to private vehicle under own strength w/o incident with DC paperwork in hand. - kayy/rn
--- NOTE | 2020-05-02 12:45 | Operative Report ---
DATE OF PROCEDURE: 04/18/2020 SURGEON: Isidro Rodriguez DO PROCEDURES PERFORMED: 1. Conscious sedation, 40 minutes. 2. Selective coronary angiography x2. 3. Left heart catheterization. PREPROCEDURE DIAGNOSIS: Abnormal stress test. POSTPROCEDURE DIAGNOSIS: Abnormal stress test. ESTIMATED BLOOD LOSS: Less than 20 mL. SPECIMENS REMOVED: None. PROCEDURE IN DETAIL: After informed consent was obtained, the patient was brought to the cardiac catheterization laboratory in a fasting and nonsedated state. Bilateral groins and right wrist were prepped and draped in usual sterile fashion. A 2% lidocaine was infiltrated over the right wrist for local anesthesia. The patient received fentanyl and midazolam, administered by general labor forklift operator nurse for 40 minutes and his neurologic and physiologic status was monitored during that time period. Using micropuncture needle, the right radial artery was accessed via modified Seldinger technique and a 5/6 Slender sheath was placed. Next, diagnostic coronary angiography x2 and left heart catheterization was performed. This revealed a significant 90% in-stent restenosis of the left circumflex coronary artery. The patient received additional heparin for therapeutic anticoagulation. Left main was cannulated with a 6-Qatari XB 3.0 guide catheter. Next, the lesion was crossed with a whisper wire, then pre-dilated with a 2 x 15 balloon and then subsequently with a 3 x 15 balloon. Next, the lesion was stented with a 3 x 26 [place] Resolute drug-eluting stent. The patient tolerated the procedure well, no immediate complications and was transferred back to his room in stable condition. PROCEDURAL FINDINGS: 1. Left main coronary artery is patent. 2. Left anterior descending coronary has a mid to distal 70% stenosis. 3. Left circumflex coronary artery and the proximal stent with 90% in-stent restenosis and provides two obtuse marginal vessels. 4. Right coronary artery is a dominant vessel and has a distal 10% nonflow limiting stenosis. This provides posterolateral branch in the PDA. IMPRESSION: Coronary artery disease, status post percutaneous coronary intervention, left circumflex coronary artery. RECOMMENDATIONS: Continue aggressive medical therapy and dual antiplatelet regimen. Isidro Rodriguez DO BM/MODL /[id number]
== END | disposition home or self-care (01) ==
LOC: CATH LAB 07:45
PROVIDERS: ATTEND Internal Medicine Cardiovascular Disease
DX: I25.10 Atherosclerotic heart disease of native coronary artery without angina pectoris (principal); R94.39 Abnormal result of other cardiovascular function study; I10 Essential (primary) hypertension; E78.5 Hyperlipidemia, unspecified; Z95.5 Presence of coronary angioplasty implant and graft; Z01.812 Encounter for preprocedural laboratory examination; Z11.59 Encounter for screening for other viral diseases; Z79.4 Long term (current) use of insulin
CPT/HCPCS: 93454; C9600; 36415; 76937; 80053; 82948; 85025; 85610; 92928; 99152; 99153; C1725; C1760; C1769; C1876; C1887; J2001; J2250; J3010; J7030; Q9967

== ENCOUNTER → 2020-05-09 | Day surgery (SDC) | payer MEDICARE, OTHER ==
[2020-05-06 09:53] LABS: BASOPHILS # (AUTO) 0.1 (0.0-0.1); BASOPHILS % 0.7 % (0.0-1.0); EOSINOPHILS # (AUTO) 0.3 (0.0-0.4); EOSINOPHILS % 3.7 % (0.0-6.0); HEMATOCRIT 40.5 % (38.2-49.6); HEMOGLOBIN 12.2 g/dL (14.0-18.0); LYMPHOCYTES # (AUTO) 2.5 (1.0-3.2); LYMPHOCYTES % 35.8 % (18.0-39.1); MEAN CORPUSCULAR HEMOGLOBIN 25.4 pg (28-32); MEAN CORPUSCULAR HGB CONC 30.1 g/dL (31-35); MEAN CORPUSCULAR VOLUME 84.2 fL (81-99); MONOCYTES # (AUTO) 0.8 (0.2-0.8); MONOCYTES % 10.7 % (4.4-11.3); NEUTROPHILS # (AUTO) 3.4 (2.1-6.9); NEUTROPHILS % 48.3 % (38.7-80.0); PLATELET COUNT 231 x10e3/uL (140-360); RED BLOOD COUNT 4.81 x10e6/uL (4.3-5.7); RED CELL DISTRIBUTION WIDTH 18.2 % (11.7-14.4)
[2020-05-06 10:17] LABS: ALANINE AMINOTRANSFERASE 16 IU/L (0-55); ALBUMIN 4.2 g/dL (3.5-5.0); ALBUMIN/GLOBULIN RATIO 1.6 (0.8-2.0); ALKALINE PHOSPHATASE 85 IU/L (40-150); BLOOD UREA NITROGEN 13 mg/dL (7-26); BUN/CREATININE RATIO 17 (6-25); CALCIUM 8.7 mg/dL (8.4-10.2); CARBON DIOXIDE 25 mmol/L (22-29); CHLORIDE 104 mmol/L (98-107); CREATININE, SERUM 0.77 mg/dL (0.72-1.25); EST GLOMERULAR FILTRATION RATE > 60 ML/MIN (60-); GLUCOSE 197 mg/dL (74-118); SODIUM 139 mmol/L (136-145)
[2020-05-06 10:35] LABS: INR 0.97; PROTHROMBIN TIME 13.4 seconds (11.9-14.5)
[~2020-05-09] VITALS: Ht 165.1 cm; Wt 69.4 kg
[~2020-05-09] MED LIST changes: -ASPIRIN 325 MG TAB ONE; +HEPARIN SOD (PORCINE) 1000 UNIT/ML 30ML ONE; -IOPAMIDOL 370 MG/ML 200 ML INFUS..BTL INJ ONE; +VERAPAMIL HCL 2.5 MG/ML 2 ML VIAL ONE
[2020-05-09 14:08] VITALS: BP 121/61
[2020-05-09 14:15] VITALS: BP 103/51
[2020-05-09 14:30] VITALS: BP 100/85
[2020-05-09 15:00] VITALS: BP 118/77
[2020-05-09 15:30] VITALS: BP 110/64
[2020-05-09 16:00] VITALS: BP 122/72
== END | disposition home or self-care (01) ==
LOC: CATH LAB 09:51
PROVIDERS: ATTEND Internal Medicine Cardiovascular Disease
DX: I25.110 Atherosclerotic heart disease of native coronary artery with unstable angina pectoris (principal); I10 Essential (primary) hypertension; E78.5 Hyperlipidemia, unspecified; E11.9 Type 2 diabetes mellitus without complications; D68.9 Coagulation defect, unspecified; Z01.812 Encounter for preprocedural laboratory examination; Z11.59 Encounter for screening for other viral diseases; Z79.02 Long term (current) use of antithrombotics/antiplatelets; Z79.82 Long term (current) use of aspirin; Z79.84 Long term (current) use of oral hypoglycemic drugs; Z79.4 Long term (current) use of insulin; Z95.5 Presence of coronary angioplasty implant and graft; Z83.3 Family history of diabetes mellitus
CPT/HCPCS: 93454; C9600; 36415; 80053; 82948; 85025; 85610; 99152; 99153; C1725; C1760; C1874; C1894; J1644; J2001; J2250; J3010; J7030; U0002

== ENCOUNTER 2020-09-30 23:56 | Inpatient (IN) | payer MEDICARE ==
[~2020-09-30] VITALS: Ht 167.6 cm; Wt 69.4 kg
[~2020-09-30 23:56] MED LIST changes: -FENTANYL CITRATE/PF 100MCG/2 ML INJ ONE; -HEPARIN SOD (PORCINE) 1000 UNIT/ML 30ML ONE; -HEPARIN SOD/SOD CHLORIDE 2,000 ML ONE; -LIDOCAINE HCL 2% LOCAL 20 ML VIAL ONE; -MIDAZOLAM HCL 2 MG/2 ML VIAL ONE; -SODIUM CHLORIDE 0.9% 1000ML 1,000 ML ONE; -TICAGRELOR 90 MG TABLET ONE; -VERAPAMIL HCL 2.5 MG/ML 2 ML VIAL ONE
[2020-10-01] MEDS ORDERED: SODIUM CHLORIDE 0.9% 1000ML 1,000 ML ONE (00:34)
[2020-10-01 00:35] LABS: BASOPHILS # (AUTO) 0.1 (0.0-0.1); BASOPHILS % 0.5 % (0.0-1.0); EOSINOPHILS % 0.3 % (0.0-6.0); HEMATOCRIT 34.9 % (38.2-49.6); HEMOGLOBIN 10.6 g/dL (14.0-18.0); LYMPHOCYTES # (AUTO) 1.9 (1.0-3.2); LYMPHOCYTES % 17.7 % (18.0-39.1); MEAN CORPUSCULAR HGB CONC 30.4 g/dL (31-35); MEAN CORPUSCULAR VOLUME 98.9 fL (81-99); MONOCYTES # (AUTO) 0.6 (0.2-0.8); MONOCYTES % 5.7 % (4.4-11.3); NEUTROPHILS # (AUTO) 7.7 (2.1-6.9); NEUTROPHILS % 72.1 % (38.7-80.0); PLATELET COUNT 290 x10e3/uL (140-360); RED BLOOD COUNT 3.53 x10e6/uL (4.3-5.7); RED CELL DISTRIBUTION WIDTH 14.9 % (11.7-14.4)
[2020-10-01 00:38] LABS: INR 0.96; PROTHROMBIN TIME 13.3 seconds (11.9-14.5)
[2020-10-01 00:39] LABS: PARTIAL THROMBOPLASTIN TIME 25.3 seconds (23.8-35.5)
[2020-10-01] MEDS ORDERED: SODIUM CHLORIDE 0.9% 250ML 250 ML IV ONE ×3 (00:45→05:15)
[2020-10-01 00:47] LABS: ALANINE AMINOTRANSFERASE 28 IU/L (0-55); ALBUMIN 3.3 g/dL (3.5-5.0); ALBUMIN/GLOBULIN RATIO 1.2 (0.8-2.0); ALKALINE PHOSPHATASE 87 IU/L (40-150); BLOOD UREA NITROGEN 35 mg/dL (7-26); BUN/CREATININE RATIO 31 (6-25); CALCIUM 8.9 mg/dL (8.4-10.2); CARBON DIOXIDE 22 mmol/L (22-29); CREATININE, SERUM 1.12 mg/dL (0.72-1.25); EST GLOMERULAR FILTRATION RATE > 60 ML/MIN (60-)
[2020-10-01 00:49] LABS: GLUCOSE 493 mg/dL (74-118)
[2020-10-01] MEDS ORDERED: SODIUM CHLORIDE 0.9% 250ML 250 ML ONE ×3 (00:54→08:11)
[2020-10-01] MEDS: OCTREOTIDE ACETATE 500 MCG in SODIUM CHLORIDE 0.9% 250ML 250 ML IV SCH (00:55)
[2020-10-01] MEDS ORDERED: OCTREOTIDE ACETATE 1 ML ONE (00:55)
[2020-10-01 00:58] LABS: CHLORIDE 104 mmol/L (98-107); POTASSIUM 5.3 mmol/L (3.5-5.1); SODIUM 135 mmol/L (136-145)
[2020-10-01 01:00] LABS: ANION GAP 14.3 mmol/L (8-16)
[2020-10-01] MEDS ORDERED: INSULIN REGULAR, HUMAN 100 UNIT/1 ML 3ML VIAL SQ ONE (01:00)
[2020-10-01] MEDS ORDERED: SODIUM CHLORIDE 0.9% 1000ML 1,000 ML IV ONE (01:00)
[2020-10-01] MEDS ORDERED: SODIUM CHLORIDE 0.9% 1000ML 1,000 ML IV SCH ×2 (01:15→22:15)
[2020-10-01] MEDS ORDERED: NOREPINEPHRINE 8 MG/D5W 250 ML 250 ML ONE (04:00)
[2020-10-01] MEDS ORDERED: DESMOPRESSIN ACETATE 4 MCG/ML VIAL IV ONE (04:15)
[2020-10-01] MEDS ORDERED: DESMOPRESSIN ACETATE ONE (04:27)
[2020-10-01] MEDS ORDERED: SODIUM CHLORIDE 0.9% 100 ML ONE (05:23)
[2020-10-01] MEDS ORDERED: IOPAMIDOL 370 MG/ML 200 ML INFUS..BTL INJ ONE (05:23)
[2020-10-01] MEDS ORDERED: NOREPINEPHRINE INJ 4MG/4ML 8 MG in DEXTROSE 5% 250ML 250 ML IV ONE (06:15)
[2020-10-01] MEDS ORDERED: PEG (High)/E-LYTE SOLN 4,000 ML BTL PO ONE ×2 (06:45→22:30)
[2020-10-01] MEDS: INSULIN REGULAR, HUMAN 100 UNIT/1 ML 3ML VIAL SQ SCH ×4 (07:30→21:00)
[2020-10-01] MEDS ORDERED: FENTANYL CITRATE/PF 100MCG/2 ML INJ ONE (07:57)
[2020-10-01] MEDS ORDERED: MIDAZOLAM HCL 2 MG/2 ML VIAL ONE (07:57)
[2020-10-01] MEDS ORDERED: IOPAMIDOL 300MG/ML 100 ML INFUS..BTL IV ONE ×2 (08:19→09:00)
[2020-10-01] MEDS: INSULIN GLARGINE 100 UNITS/ML VIAL SQ SCH (08:30)
[2020-10-01] MEDS ORDERED: ONDANSETRON HCL INJ 2MG/ML 2ML 2 MG/ML VIAL IV PRN (08:30)
[2020-10-01] MEDS ORDERED: LIDOCAINE HCL 1% LOCAL INJ 20 ML VIAL ONE (08:40)
[2020-10-01 10:18] LABS: BASOPHILS # (AUTO) 0.1 (0.0-0.1); BASOPHILS % 0.5 % (0.0-1.0); EOSINOPHILS % 0.2 % (0.0-6.0); HEMATOCRIT 42.6 % (38.2-49.6); HEMOGLOBIN 13.9 g/dL (14.0-18.0); LYMPHOCYTES # (AUTO) 2.4 (1.0-3.2); LYMPHOCYTES % 13.8 % (18.0-39.1); MEAN CORPUSCULAR HEMOGLOBIN 29.2 pg (28-32); MEAN CORPUSCULAR HGB CONC 32.6 g/dL (31-35); MEAN CORPUSCULAR VOLUME 89.5 fL (81-99); MONOCYTES # (AUTO) 1.7 (0.2-0.8); MONOCYTES % 9.4 % (4.4-11.3); NEUTROPHILS # (AUTO) 12.8 (2.1-6.9); NEUTROPHILS % 72.9 % (38.7-80.0); PLATELET COUNT 223 x10e3/uL (140-360); RED BLOOD COUNT 4.76 x10e6/uL (4.3-5.7); RED CELL DISTRIBUTION WIDTH 14.8 % (11.7-14.4)
[2020-10-01 10:31] LABS: ANION GAP 12.8 mmol/L (8-16); BLOOD UREA NITROGEN 37 mg/dL (7-26); BUN/CREATININE RATIO 47 (6-25); CALCIUM 7.7 mg/dL (8.4-10.2); CARBON DIOXIDE 22 mmol/L (22-29); CHLORIDE 109 mmol/L (98-107); CREATININE, SERUM 0.79 mg/dL (0.72-1.25); EST GLOMERULAR FILTRATION RATE > 60 ML/MIN (60-); GLUCOSE 208 mg/dL (74-118); POTASSIUM 4.8 mmol/L (3.5-5.1); SODIUM 139 mmol/L (136-145)
[2020-10-01 10:53] LABS: FERRITIN 7.71 ng/mL (21.81-274.66)
[2020-10-01 19:06] LABS: HEMATOCRIT 41.7 % (38.2-49.6); HEMOGLOBIN 13.7 g/dL (14.0-18.0)
[2020-10-01] MEDS ORDERED: INSULIN GLARGINE 100 UNITS/ML VIAL SQ SCH (21:00)
[2020-10-01] MEDS: DEXTROSE 50% SYRINGE 50 ML IV PRN (21:12)
[2020-10-01 21:30] VITALS: BP 91/53
[2020-10-02] VITALS (7 sets, daily range): BP systolic 105–135; BP diastolic 61–71
[2020-10-02 01:30] LABS: HEMATOCRIT 37.4 % (38.2-49.6); HEMOGLOBIN 12.3 g/dL (14.0-18.0)
[2020-10-02] MEDS ORDERED: DEXTROSE 5%/0.45% SOD CHL 1,000 ML IV ONE (01:30)
[2020-10-02] MEDS: OCTREOTIDE ACETATE 500 MCG in SODIUM CHLORIDE 0.9% 250ML 250 ML IV SCH (02:31)
[2020-10-02 05:30] LABS: HEMATOCRIT 37.2 % (38.2-49.6); HEMOGLOBIN 12.1 g/dL (14.0-18.0)
[2020-10-02] MEDS: INSULIN REGULAR, HUMAN 100 UNIT/1 ML 3ML VIAL SQ SCH ×2 (07:30→21:00)
[2020-10-02] MEDS: INSULIN GLARGINE 100 UNITS/ML VIAL SQ SCH (09:00)
[2020-10-02] MEDS: PANTOPRAZOLE 40 MG 10ML VIAL IV SCH (09:33)
[2020-10-02] MEDS: DEXTROSE 50% SYRINGE 50 ML IV PRN (11:35)
[2020-10-02 12:06] LABS: HEMATOCRIT 38.7 % (38.2-49.6); HEMOGLOBIN 12.4 g/dL (14.0-18.0)
[2020-10-02] MEDS ORDERED: PROPOFOL IV EMULSION 10 MG/ML 20 ML VIAL ONE (12:42)
[2020-10-02] MEDS ORDERED: EPHEDRINE SULFATE INJ 50 MG/ML VIAL ONE (12:42)
[2020-10-02] MEDS ORDERED: LIDOCAINE HCL 2% LOCAL INJ 5 ML SDV VIAL INJ ONE (12:42)
[2020-10-02] MEDS: OCTREOTIDE ACETATE 500 MCG in SODIUM CHLORIDE 0.9% 250ML 249 ML IV SCH (14:37)
[2020-10-02 15:52] LABS: ANION GAP 10.7 mmol/L (8-16); BLOOD UREA NITROGEN 25 mg/dL (7-26); BUN/CREATININE RATIO 37 (6-25); CALCIUM 7.5 mg/dL (8.4-10.2); CARBON DIOXIDE 23 mmol/L (22-29); CHLORIDE 110 mmol/L (98-107); CREATININE, SERUM 0.67 mg/dL (0.72-1.25); EST GLOMERULAR FILTRATION RATE > 60 ML/MIN (60-); GLUCOSE 73 mg/dL (74-118); POTASSIUM 3.7 mmol/L (3.5-5.1); SODIUM 140 mmol/L (136-145)
[2020-10-02 17:47] LABS: BASOPHILS # (AUTO) 0.1 (0.0-0.1); BASOPHILS % 0.6 % (0.0-1.0); EOSINOPHILS # (AUTO) 0.1 (0.0-0.4); EOSINOPHILS % 1.3 % (0.0-6.0); HEMATOCRIT 38.4 % (38.2-49.6); HEMOGLOBIN 12.4 g/dL (14.0-18.0); LYMPHOCYTES # (AUTO) 2.5 (1.0-3.2); LYMPHOCYTES % 25.2 % (18.0-39.1); MEAN CORPUSCULAR HEMOGLOBIN 29.2 pg (28-32); MEAN CORPUSCULAR HGB CONC 32.3 g/dL (31-35); MEAN CORPUSCULAR VOLUME 90.6 fL (81-99); MONOCYTES # (AUTO) 0.9 (0.2-0.8); MONOCYTES % 8.5 % (4.4-11.3); NEUTROPHILS # (AUTO) 6.2 (2.1-6.9); NEUTROPHILS % 62.1 % (38.7-80.0); PLATELET COUNT 180 x10e3/uL (140-360); RED BLOOD COUNT 4.24 x10e6/uL (4.3-5.7); RED CELL DISTRIBUTION WIDTH 14.8 % (11.7-14.4)
[2020-10-02] MEDS ORDERED: INSULIN GLARGINE 100 UNITS/ML VIAL SQ SCH (21:00)
[2020-10-03] VITALS (7 sets, daily range): BP systolic 99–120; BP diastolic 46–67
[2020-10-03] MEDS: OCTREOTIDE ACETATE 500 MCG in SODIUM CHLORIDE 0.9% 250ML 249 ML IV SCH ×2 (00:04→10:30)
[2020-10-03 05:47] LABS: BASOPHILS # (AUTO) 0.1 (0.0-0.1); BASOPHILS % 0.6 % (0.0-1.0); EOSINOPHILS # (AUTO) 0.1 (0.0-0.4); EOSINOPHILS % 1.5 % (0.0-6.0); HEMATOCRIT 40.1 % (38.2-49.6); LYMPHOCYTES % 22.6 % (18.0-39.1); MEAN CORPUSCULAR HEMOGLOBIN 29.2 pg (28-32); MEAN CORPUSCULAR HGB CONC 32.4 g/dL (31-35); MEAN CORPUSCULAR VOLUME 90.1 fL (81-99); MONOCYTES # (AUTO) 0.9 (0.2-0.8); MONOCYTES % 9.8 % (4.4-11.3); NEUTROPHILS # (AUTO) 5.5 (2.1-6.9); NEUTROPHILS % 63.3 % (38.7-80.0); PLATELET COUNT 163 x10e3/uL (140-360); RED BLOOD COUNT 4.45 x10e6/uL (4.3-5.7); RED CELL DISTRIBUTION WIDTH 14.5 % (11.7-14.4)
[2020-10-03 06:45] LABS: BLOOD UREA NITROGEN 8 mg/dL (7-26); BUN/CREATININE RATIO 12 (6-25); CALCIUM 7.8 mg/dL (8.4-10.2); CARBON DIOXIDE 25 mmol/L (22-29); CHLORIDE 101 mmol/L (98-107); CREATININE, SERUM 0.65 mg/dL (0.72-1.25); EST GLOMERULAR FILTRATION RATE > 60 ML/MIN (60-); GLUCOSE 84 mg/dL (74-118); SODIUM 131 mmol/L (136-145)
[2020-10-03] MEDS: INSULIN REGULAR, HUMAN 100 UNIT/1 ML 3ML VIAL SQ SCH ×5 (07:30→17:57)
[2020-10-03] MEDS: PANTOPRAZOLE 40 MG 10ML VIAL IV SCH (08:59)
[2020-10-03] MEDS ORDERED: INSULIN GLARGINE 100 UNITS/ML VIAL SQ SCH (09:00)
[2020-10-03 13:10] LABS: HEMOGLOBIN 13.5 g/dL (14.0-18.0)
[2020-10-03 18:36] LABS: HEMOGLOBIN 13.3 g/dL (14.0-18.0)
== END 2020-10-03 22:24 | disposition home or self-care (01) | DRG 377 ==
LOC: ER 10-01 00:10 → ERHOLD 10-01 01:19 → MED/SURG 10-01 20:35
PROVIDERS: ADMIT Internal Medicine; ATTEND Internal Medicine
PROC: B4151ZZ Fluoroscopy of Inferior Mesenteric Artery using Low Osmolar Contrast (ICD-10-PCS; principal; 2020-10-01)
PROC: 3E033XZ Introduction of Vasopressor into Peripheral Vein, Percutaneous Approach (ICD-10-PCS; 2020-10-01)
PROC: 30233N1 Transfusion of Nonautologous Red Blood Cells into Peripheral Vein, Percutaneous Approach (ICD-10-PCS; 2020-10-01)
PROC: 0DJD8ZZ Inspection of Lower Intestinal Tract, Via Natural or Artificial Opening Endoscopic (ICD-10-PCS; 2020-10-02)
DX: K57.31 Diverticulosis of large intestine without perforation or abscess with bleeding (principal); R57.1 Hypovolemic shock; D62 Acute posthemorrhagic anemia; E87.5 Hyperkalemia; I10 Essential (primary) hypertension; I25.10 Atherosclerotic heart disease of native coronary artery without angina pectoris; K21.9 Gastro-esophageal reflux disease without esophagitis; E78.5 Hyperlipidemia, unspecified; E11.65 Type 2 diabetes mellitus with hyperglycemia; Z79.4 Long term (current) use of insulin; Z95.5 Presence of coronary angioplasty implant and graft; N40.0 Benign prostatic hyperplasia without lower urinary tract symptoms; Z86.16 Personal history of COVID-19; K64.8 Other hemorrhoids; I95.89 Other hypotension
CPT/HCPCS: 36415; 45378; 74174; 74470; 75726; 80048; 80053; 80061; 82607; 82728; 82948; 83036; 83540; 84466; 85014; 85018; 85025; 85610; 85730; 86850; 86900; 86920; 93005; 99284; C1760; C1769; C1887; J2001; J2250; J2353; J3010; J7030; J7050; J7799; P9016; Q9967; U0002

== ENCOUNTER 2020-10-24 10:29 | Inpatient (IN) | payer MEDICARE ==
[2020-10-22 10:37] LABS: BASOPHILS # (AUTO) 0.1 (0.0-0.1); BASOPHILS % 0.7 % (0.0-1.0); EOSINOPHILS # (AUTO) 0.1 (0.0-0.4); EOSINOPHILS % 0.5 % (0.0-6.0); HEMATOCRIT 38.1 % (38.2-49.6); LYMPHOCYTES # (AUTO) 2.2 (1.0-3.2); MEAN CORPUSCULAR HGB CONC 31.5 g/dL (31-35); MONOCYTES % 7.9 % (4.4-11.3); NEUTROPHILS % 64.9 % (38.7-80.0); PLATELET COUNT 275 x10e3/uL (140-360); RED BLOOD COUNT 4.14 x10e6/uL (4.3-5.7); RED CELL DISTRIBUTION WIDTH 14.4 % (11.7-14.4)
[2020-10-22 10:50] LABS: ALANINE AMINOTRANSFERASE 31 IU/L (0-55); ALBUMIN 3.1 g/dL (3.5-5.0); ALKALINE PHOSPHATASE 99 IU/L (40-150); ANION GAP 16.3 mmol/L (8-16); BLOOD UREA NITROGEN 29 mg/dL (7-26); BUN/CREATININE RATIO 33 (6-25); CALCIUM 8.8 mg/dL (8.4-10.2); CARBON DIOXIDE 27 mmol/L (22-29); CHLORIDE 101 mmol/L (98-107); CREATININE, SERUM 0.89 mg/dL (0.72-1.25); EST GLOMERULAR FILTRATION RATE > 60 ML/MIN (60-); GLUCOSE 311 mg/dL (74-118); POTASSIUM 5.3 mmol/L (3.5-5.1); SODIUM 139 mmol/L (136-145)
[2020-10-22 12:57] LABS: BAND NEUTROPHILS % (MANUAL) 1 %; LYMPHOCYTES % (MANUAL) 25 % (19-48); MONOCYTES % (MANUAL) 5 % (3.4-9.0); MYELOCYTES % (MANUAL) 6 % (0-0); NEUTROPHILS % (MANUAL) 61 % (40-74)
[2020-10-22 12:58] LABS: PLATELET ESTIMATE ADEQUATE; PLATELET MORPHOLOGY COMMENT NORMAL; RBC MORPHOLOGY COMMENT NORMAL
[~2020-10-24] VITALS: Ht 157.5 cm; Wt 67.6 kg
[2020-10-24] MEDS ORDERED: DEXTROSE 5% 250ML 250 ML IV ONE (11:26)
[2020-10-24] MEDS ORDERED: CEFOXITIN 1GM/0.9% NS 50ML 100 ML IV ONE (11:26)
[2020-10-24] MEDS ORDERED: GLYCOPYRROLATE INJ 0.2 MG/ML VIAL ONE (12:36)
[2020-10-24] MEDS ORDERED: DEXAMETHASONE SOD PHOS INJ 4 MG/ML VIAL ONE (12:36)
[2020-10-24] MEDS ORDERED: DESFLURANE 240 ML BTL INH ONE (12:36)
[2020-10-24] MEDS ORDERED: LIDOCAINE HCL 2% LOCAL INJ 5 ML SDV VIAL INJ ONE (12:36)
[2020-10-24] MEDS ORDERED: ONDANSETRON HCL INJ 2MG/ML 2ML 2 MG/ML VIAL ONE (12:36)
[2020-10-24] MEDS ORDERED: PHENYLEPHRINE HCL 1% 10 MG/ML VIAL ONE (12:36)
[2020-10-24] MEDS ORDERED: EPHEDRINE SULFATE INJ 50 MG/ML VIAL ONE (12:36)
[2020-10-24] MEDS ORDERED: PROPOFOL IV EMULSION 10 MG/ML 20 ML VIAL ONE (12:36)
[2020-10-24] MEDS ORDERED: NEOSTIGMINE 1 MG/ML 10ML VIAL ONE (12:36)
[2020-10-24] MEDS ORDERED: MORPHINE SULFATE INJ 10 MG/ML ONE (12:52)
[2020-10-24] MEDS ORDERED: FENTANYL CITRATE/PF 100MCG/2 ML INJ ONE (12:52)
[2020-10-24] MEDS ORDERED: MIDAZOLAM HCL 2 MG/2 ML VIAL ONE (12:52)
[2020-10-24] MEDS ORDERED: LIDOCAINE 1% W/EPINEPHRINE 20 ML VIAL ONE (13:27)
[2020-10-24] MEDS ORDERED: ACETAMINOPHEN 1000 MG/100 ML 100 ML IV ONE (14:36)
[2020-10-24] MEDS ORDERED: BUPIVACAINE 0.25% 30ML SDV ONE (15:13)
[2020-10-24] MEDS ORDERED: ONDANSETRON HCL INJ 2MG/ML 2ML 2 MG/ML VIAL IV PRN (15:30)
[2020-10-24 16:16] VITALS: BP_SYST 105; BP_SYST 91; BP_DIAS 52; BP_DIAS 53
[2020-10-24 16:22] VITALS: BP 91/52
[2020-10-24 16:23] VITALS: BP 91/52
[2020-10-24] MEDS ORDERED: DEXTROSE 50% SYRINGE 50 ML IV PRN (16:30)
[2020-10-24] MEDS: SODIUM CHLORIDE 0.9% 1000ML 1,000 ML IV SCH (16:59)
[2020-10-24] MEDS: HEPARIN SOD (PORCINE) 5,000 UNIT/ML VIAL SC SCH (17:32)
[2020-10-24] MEDS: PANTOPRAZOLE 40 MG 10ML VIAL IV SCH (17:33)
[2020-10-24] MEDS: INSULIN REGULAR, HUMAN 100 UNIT/1 ML 3ML VIAL SQ SCH (18:00)
[2020-10-24 20:00] VITALS: BP 116/65
[2020-10-24 20:10] VITALS: BP 116/65
[2020-10-24] MEDS: CEFOXITIN 1GM/0.9% NS 50ML 50 ML IV SCH (21:22)
[2020-10-24] MEDS: HYDROMORPHONE 1MG/1ML INJ IV PRN (22:30)
[2020-10-25] VITALS (9 sets, daily range): BP systolic 110–134; BP diastolic 58–67
[2020-10-25] MEDS: SODIUM CHLORIDE 0.9% 1000ML 1,000 ML IV SCH ×3 (02:28→20:03)
[2020-10-25] MEDS: CEFOXITIN 1GM/0.9% NS 50ML 50 ML IV SCH (02:28)
[2020-10-25 05:06] LABS: BASOPHILS # (AUTO) 0.1 (0.0-0.1); BASOPHILS % 0.5 % (0.0-1.0); HEMATOCRIT 40.4 % (38.2-49.6); HEMOGLOBIN 12.8 g/dL (14.0-18.0); LYMPHOCYTES # (AUTO) 1.6 (1.0-3.2); LYMPHOCYTES % 6.6 % (18.0-39.1); MEAN CORPUSCULAR HEMOGLOBIN 29.9 pg (28-32); MEAN CORPUSCULAR HGB CONC 31.7 g/dL (31-35); MEAN CORPUSCULAR VOLUME 94.4 fL (81-99); MONOCYTES % 4.1 % (4.4-11.3); NEUTROPHILS # (AUTO) 21.1 (2.1-6.9); NEUTROPHILS % 87.7 % (38.7-80.0); PLATELET COUNT 182 x10e3/uL (140-360); RED BLOOD COUNT 4.28 x10e6/uL (4.3-5.7); RED CELL DISTRIBUTION WIDTH 14.7 % (11.7-14.4)
[2020-10-25 05:27] LABS: ANION GAP 14.8 mmol/L (8-16); BLOOD UREA NITROGEN 12 mg/dL (7-26); BUN/CREATININE RATIO 16 (6-25); CALCIUM 8.4 mg/dL (8.4-10.2); CARBON DIOXIDE 23 mmol/L (22-29); CHLORIDE 104 mmol/L (98-107); CREATININE, SERUM 0.77 mg/dL (0.72-1.25); EST GLOMERULAR FILTRATION RATE > 60 ML/MIN (60-); GLUCOSE 182 mg/dL (74-118); POTASSIUM 4.8 mmol/L (3.5-5.1); SODIUM 137 mmol/L (136-145)
[2020-10-25] MEDS: HEPARIN SOD (PORCINE) 5,000 UNIT/ML VIAL SC SCH ×2 (05:45→17:54)
[2020-10-25] MEDS: INSULIN REGULAR, HUMAN 100 UNIT/1 ML 3ML VIAL SQ SCH ×4 (06:00→18:00)
[2020-10-25 07:10] LABS: LYMPHOCYTES % (MANUAL) 8 % (19-48); MONOCYTES % (MANUAL) 7 % (3.4-9.0); NEUTROPHILS % (MANUAL) 85 % (40-74)
[2020-10-25 07:11] LABS: PLATELET ESTIMATE ADEQUATE; PLATELET MORPHOLOGY COMMENT FEW EDTA CLUMPING
[2020-10-25 07:12] LABS: ANISOCYTOSIS SLIGHT; POIKILOCYTOSIS SLIGHT; RBC MORPHOLOGY COMMENT NORMAL
[2020-10-25] MEDS: HYDROMORPHONE 1MG/1ML INJ IV PRN ×3 (08:55→20:00)
[2020-10-25] MEDS: PANTOPRAZOLE 40 MG 10ML VIAL IV SCH (16:08)
[2020-10-26] VITALS (7 sets, daily range): BP systolic 112–134; BP diastolic 52–63
[2020-10-26] MEDS ORDERED: ACETAMINOPHEN 325 MG TAB PO PRN
[2020-10-26] MEDS ORDERED: PIPER-TAZ 3.375 GM 50 ML IV SCH
[2020-10-26] MEDS: PIPERACILLIN/TAZOBAC 3.375 GM in SODIUM CHLORIDE 0.9% 50ML 50 ML IV SCH ×4 (00:52→21:38)
[2020-10-26] MEDS: INSULIN REGULAR, HUMAN 100 UNIT/1 ML 3ML VIAL SQ SCH ×4 (05:34→17:03)
[2020-10-26] MEDS: HYDROMORPHONE 1MG/1ML INJ IV PRN ×4 (06:30→19:40)
[2020-10-26] MEDS: SODIUM CHLORIDE 0.9% 1000ML 1,000 ML IV SCH ×2 (06:33→17:01)
[2020-10-26] MEDS: HEPARIN SOD (PORCINE) 5,000 UNIT/ML VIAL SC SCH ×2 (06:33→17:08)
[2020-10-26 07:36] LABS: BASOPHILS % 0.3 % (0.0-1.0); EOSINOPHILS % 0.2 % (0.0-6.0); HEMATOCRIT 35.5 % (38.2-49.6); HEMOGLOBIN 11.3 g/dL (14.0-18.0); LYMPHOCYTES # (AUTO) 1.7 (1.0-3.2); LYMPHOCYTES % 11.8 % (18.0-39.1); MEAN CORPUSCULAR HEMOGLOBIN 29.2 pg (28-32); MEAN CORPUSCULAR HGB CONC 31.8 g/dL (31-35); MEAN CORPUSCULAR VOLUME 91.7 fL (81-99); MONOCYTES # (AUTO) 1.1 (0.2-0.8); MONOCYTES % 7.3 % (4.4-11.3); NEUTROPHILS # (AUTO) 11.4 (2.1-6.9); NEUTROPHILS % 79.3 % (38.7-80.0); PLATELET COUNT 218 x10e3/uL (140-360); RED BLOOD COUNT 3.87 x10e6/uL (4.3-5.7); RED CELL DISTRIBUTION WIDTH 14.8 % (11.7-14.4)
[2020-10-26 07:51] LABS: ANION GAP 13.8 mmol/L (8-16); BLOOD UREA NITROGEN 10 mg/dL (7-26); BUN/CREATININE RATIO 14 (6-25); CALCIUM 8.2 mg/dL (8.4-10.2); CARBON DIOXIDE 24 mmol/L (22-29); CHLORIDE 104 mmol/L (98-107); CREATININE, SERUM 0.74 mg/dL (0.72-1.25); EST GLOMERULAR FILTRATION RATE > 60 ML/MIN (60-); GLUCOSE 72 mg/dL (74-118); POTASSIUM 3.8 mmol/L (3.5-5.1); SODIUM 138 mmol/L (136-145)
[2020-10-26] MEDS: PANTOPRAZOLE 40 MG 10ML VIAL IV SCH (16:00)
[2020-10-27] VITALS (8 sets, daily range): BP systolic 106–128; BP diastolic 57–66
[2020-10-27] MEDS: SODIUM CHLORIDE 0.9% 1000ML 1,000 ML IV SCH ×2 (04:31→13:52)
[2020-10-27] MEDS: HYDROMORPHONE 1MG/1ML INJ IV PRN ×5 (05:00→23:00)
[2020-10-27] MEDS: INSULIN REGULAR, HUMAN 100 UNIT/1 ML 3ML VIAL SQ SCH ×5 (06:00→21:00)
[2020-10-27] MEDS: PIPERACILLIN/TAZOBAC 3.375 GM in SODIUM CHLORIDE 0.9% 50ML 50 ML IV SCH ×3 (06:04→22:00)
[2020-10-27] MEDS: HEPARIN SOD (PORCINE) 5,000 UNIT/ML VIAL SC SCH ×2 (06:04→18:09)
[2020-10-27 07:27] LABS: HEMATOCRIT 32.7 % (38.2-49.6); HEMOGLOBIN 10.4 g/dL (14.0-18.0); MEAN CORPUSCULAR HEMOGLOBIN 29.1 pg (28-32); MEAN CORPUSCULAR HGB CONC 31.8 g/dL (31-35); MEAN CORPUSCULAR VOLUME 91.3 fL (81-99); PLATELET COUNT 207 x10e3/uL (140-360); RED BLOOD COUNT 3.58 x10e6/uL (4.3-5.7); RED CELL DISTRIBUTION WIDTH 14.4 % (11.7-14.4)
[2020-10-27 07:47] LABS: ANION GAP 14.9 mmol/L (8-16); BLOOD UREA NITROGEN 6 mg/dL (7-26); BUN/CREATININE RATIO 8 (6-25); CALCIUM 8.3 mg/dL (8.4-10.2); CARBON DIOXIDE 21 mmol/L (22-29); CHLORIDE 102 mmol/L (98-107); CREATININE, SERUM 0.72 mg/dL (0.72-1.25); EST GLOMERULAR FILTRATION RATE > 60 ML/MIN (60-); GLUCOSE 128 mg/dL (74-118); POTASSIUM 3.9 mmol/L (3.5-5.1); SODIUM 134 mmol/L (136-145)
[2020-10-27] MEDS: PANTOPRAZOLE 40 MG 10ML VIAL IV SCH (17:39)
[2020-10-28] VITALS (7 sets, daily range): BP systolic 112–131; BP diastolic 52–70
[2020-10-28] MEDS: SODIUM CHLORIDE 0.9% 1000ML 1,000 ML IV SCH ×2 (00:26→13:04)
[2020-10-28] MEDS: HYDROMORPHONE 1MG/1ML INJ IV PRN ×4 (04:45→18:00)
[2020-10-28] MEDS: HEPARIN SOD (PORCINE) 5,000 UNIT/ML VIAL SC SCH ×2 (06:11→17:34)
[2020-10-28] MEDS: PIPERACILLIN/TAZOBAC 3.375 GM in SODIUM CHLORIDE 0.9% 50ML 50 ML IV SCH ×3 (06:14→20:31)
[2020-10-28] MEDS: INSULIN REGULAR, HUMAN 100 UNIT/1 ML 3ML VIAL SQ SCH ×4 (07:30→21:00)
[2020-10-28] MEDS ORDERED: ONDANSETRON HCL 4 MG ORAL DISINTEGRATING TAB PO PRN (14:15)
[2020-10-28] MEDS: PANTOPRAZOLE 40 MG 10ML VIAL IV SCH (17:27)
[2020-10-29] VITALS (8 sets, daily range): BP systolic 102–130; BP diastolic 50–58
[2020-10-29] MEDS: PIPERACILLIN/TAZOBAC 3.375 GM in SODIUM CHLORIDE 0.9% 50ML 50 ML IV SCH ×3 (06:17→21:04)
[2020-10-29] MEDS: HEPARIN SOD (PORCINE) 5,000 UNIT/ML VIAL SC SCH ×2 (06:17→17:13)
[2020-10-29] MEDS: HYDROMORPHONE 1MG/1ML INJ IV PRN (06:18)
[2020-10-29] MEDS: SODIUM CHLORIDE 0.9% 1000ML 1,000 ML IV SCH (06:18)
[2020-10-29] MEDS: INSULIN REGULAR, HUMAN 100 UNIT/1 ML 3ML VIAL SQ SCH ×4 (07:30→20:57)
[2020-10-29 08:39] LABS: BASOPHILS % 0.7 % (0.0-1.0); EOSINOPHILS # (AUTO) 0.1 (0.0-0.4); EOSINOPHILS % 1.8 % (0.0-6.0); HEMATOCRIT 33.4 % (38.2-49.6); HEMOGLOBIN 10.6 g/dL (14.0-18.0); LYMPHOCYTES # (AUTO) 1.3 (1.0-3.2); LYMPHOCYTES % 22.4 % (18.0-39.1); MEAN CORPUSCULAR HEMOGLOBIN 28.8 pg (28-32); MEAN CORPUSCULAR HGB CONC 31.7 g/dL (31-35); MEAN CORPUSCULAR VOLUME 90.8 fL (81-99); MONOCYTES # (AUTO) 0.7 (0.2-0.8); MONOCYTES % 12.8 % (4.4-11.3); NEUTROPHILS # (AUTO) 3.5 (2.1-6.9); NEUTROPHILS % 61.6 % (38.7-80.0); PLATELET COUNT 246 x10e3/uL (140-360); RED BLOOD COUNT 3.68 x10e6/uL (4.3-5.7); RED CELL DISTRIBUTION WIDTH 13.8 % (11.7-14.4)
[2020-10-29 09:00] LABS: ANION GAP 14.9 mmol/L (8-16); BLOOD UREA NITROGEN < 5 mg/dL (7-26); CALCIUM 8.1 mg/dL (8.4-10.2); CARBON DIOXIDE 24 mmol/L (22-29); CHLORIDE 103 mmol/L (98-107); CREATININE, SERUM 0.71 mg/dL (0.72-1.25); EST GLOMERULAR FILTRATION RATE > 60 ML/MIN (60-); GLUCOSE 167 mg/dL (74-118); POTASSIUM 3.9 mmol/L (3.5-5.1); SODIUM 138 mmol/L (136-145)
[2020-10-29 09:11] LABS: BUN/CREATININE RATIO 7 (6-25)
[2020-10-29] MEDS: HYDROCODONE/APAP 5MG-325MG TAB PO PRN ×2 (10:18→21:35)
[2020-10-29] MEDS: PANTOPRAZOLE 40 MG 10ML VIAL IV SCH (17:13)
[2020-10-29] MEDS ORDERED: MAGNESIUM SULFATE 2GM/50ML 50 ML IV ONE (17:15)
[2020-10-30] VITALS: BP 109/58
[2020-10-30] MEDS: SODIUM CHLORIDE 0.9% 1000ML 1,000 ML IV SCH (03:03)
[2020-10-30 04:00] VITALS: BP 117/62
[2020-10-30] MEDS: PIPERACILLIN/TAZOBAC 3.375 GM in SODIUM CHLORIDE 0.9% 50ML 50 ML IV SCH ×2 (05:34→16:24)
[2020-10-30] MEDS: HEPARIN SOD (PORCINE) 5,000 UNIT/ML VIAL SC SCH (05:41)
[2020-10-30] MEDS: HYDROCODONE/APAP 5MG-325MG TAB PO PRN ×2 (06:35→17:12)
[2020-10-30] MEDS: INSULIN REGULAR, HUMAN 100 UNIT/1 ML 3ML VIAL SQ SCH ×3 (07:30→16:24)
[2020-10-30 07:52] VITALS: BP 112/56
[2020-10-30 08:25] VITALS: BP 112/56
[2020-10-30 12:03] VITALS: BP 122/62
[2020-10-30] MEDS ORDERED: ZOFRAN4 MG PO (12:59)
[2020-10-30] MEDS ORDERED: COLACE100 MG PO (12:59)
[2020-10-30] MEDS ORDERED: SENOKOT-S TABL1 EACH PO (12:59)
[2020-10-30] MEDS ORDERED: FLAGYL500 MG PO (13:01)
[2020-10-30] MEDS ORDERED: KEFLEX125 MG/5 M PO (13:01)
[2020-10-30] MEDS: DOCUSATE SODIUM 100 MG CAP PO SCH ×2 (13:16→16:24)
[2020-10-30] MEDS: SENNOSIDES 8.6 MG TAB PO SCH ×2 (13:16→16:24)
[2020-10-30 16:10] VITALS: BP 113/57
[2020-10-30] MEDS: PANTOPRAZOLE 40 MG 10ML VIAL IV SCH (16:24)
== END 2020-10-30 18:20 | disposition home or self-care (01) | DRG 329 ==
LOC: OR 10:29 → PACU V 15:26 → MED/SURG 16:04
PROVIDERS: ADMIT Surgery; ATTEND Surgery
PROC: 0DT Gastrointestinal System, Resection (ICD-10-PCS; principal; 2020-10-24 12:30)
DX: K57.91 Diverticulosis of intestine, part unspecified, without perforation or abscess with bleeding (principal); A41.9 Sepsis, unspecified organism; E78.00 Pure hypercholesterolemia, unspecified; Z87.891 Personal history of nicotine dependence; I10 Essential (primary) hypertension; Z20.822 Contact with and (suspected) exposure to COVID-19; I25.10 Atherosclerotic heart disease of native coronary artery without angina pectoris; D64.9 Anemia, unspecified
CPT/HCPCS: 36415; 71046; 80048; 80053; 82948; 83036; 83735; 84132; 85007; 85025; 85027; 86850; 86900; 88307; 97139; J1100; J1170; J1644; J1817; J2001; J2250; J2270; J2370; J2405; J2543; J2710; J3010; J3475; J7030; J7070; U0002

== ENCOUNTER 2021-07-01 12:03 | Inpatient (IN) | payer MEDICARE ==
[~2021-07-01] VITALS: Ht 165.1 cm; Wt 69.4 kg
[~2021-07-01 12:03] MED LIST changes: +COLACE100 MG PO; +FLAGYL500 MG PO; +KEFLEX125 MG/5 M PO; +SENOKOT-S TABL1 EACH PO; +ZOFRAN4 MG PO
[2021-07-01] MEDS ORDERED: SODIUM CHLORIDE 0.9% 1000ML 500 ML IV STA (12:13)
[2021-07-01 13:25] LABS: BASOPHILS # (AUTO) 0.1 (0.0-0.1); BASOPHILS % 0.9 % (0.0-1.0); EOSINOPHILS # (AUTO) 0.3 (0.0-0.4); EOSINOPHILS % 2.8 % (0.0-6.0); HEMATOCRIT 35.1 % (38.2-49.6); HEMOGLOBIN 10.6 g/dL (14.0-18.0); LYMPHOCYTES # (AUTO) 2.2 (1.0-3.2); LYMPHOCYTES % 21.2 % (18.0-39.1); MEAN CORPUSCULAR HEMOGLOBIN 26.5 pg (28-32); MEAN CORPUSCULAR HGB CONC 30.2 g/dL (31-35); MEAN CORPUSCULAR VOLUME 87.8 fL (81-99); MONOCYTES # (AUTO) 1.2 (0.2-0.8); MONOCYTES % 11.6 % (4.4-11.3); NEUTROPHILS # (AUTO) 6.1 (2.1-6.9); NEUTROPHILS % 59.8 % (38.7-80.0); PLATELET COUNT 754 x10e3/uL (140-360); RED CELL DISTRIBUTION WIDTH 15.6 % (11.7-14.4)
[2021-07-01 13:33] LABS: CLARITY,URINE CLEAR (CLEAR); COLOR,URINE YELLOW (YELLOW); KETONES,URINE TRACE (NEGATIVE); LEUKOCYTE ESTERASE ,URINE NEGATIVE (NEGATIVE); NITRITE,URINE NEGATIVE (NEGATIVE); PROTEIN,URINE DIPSTICK NEGATIVE (NEGATIVE); URINE UROBILINOGEN 0.2 mg/dL (0.2 - 1)
[2021-07-01 13:36] LABS: RBC,URINE 0-5 /HPF (0-5); WBC,URINE (MAN) 0-5 /HPF (0-5)
[2021-07-01 13:37] LABS: BACTERIA,URINE RARE /HPF; EPITHELIAL CELLS,URINE RARE /LPF; INR 1.27; PROTHROMBIN TIME 16.9 seconds (11.9-14.5)
[2021-07-01 13:38] LABS: PARTIAL THROMBOPLASTIN TIME 51.8 seconds (23.8-35.5)
[2021-07-01 13:43] LABS: ALBUMIN 2.3 g/dL (3.5-5.0); ALBUMIN/GLOBULIN RATIO 0.5 (0.8-2.0); CREATININE, SERUM 0.76 mg/dL (0.72-1.25)
[2021-07-01 13:51] LABS: CALCIUM 9.5 mg/dL (8.4-10.2)
[2021-07-01 13:58] LABS: CREATINE KINASE MB 0.6 ng/mL (0-5.0)
[2021-07-01] MEDS ORDERED: SODIUM CHLORIDE 0.9% 50ML 50 ML ONE (14:04)
[2021-07-01] MEDS ORDERED: IOPAMIDOL 370 MG/ML 200 ML INFUS..BTL INJ ONE (14:05)
[2021-07-01] MEDS ORDERED: PIPERACILLIN/TAZOBACTAM 3.375 GM in SODIUM CHLORIDE 0.9% 50ML 50 ML IV SCH (15:00)
[2021-07-01] MEDS ORDERED: ONDANSETRON HCL INJ 2MG/ML 2ML 2 MG/ML VIAL IV PRN (15:15)
[2021-07-01] MEDS ORDERED: CEFTRIAXONE 1 GM in SODIUM CHLORIDE 0.9% 50ML 50 ML IV SCH (17:00)
[2021-07-01 20:15] VITALS: BP 111/62
[2021-07-01 20:17] VITALS: BP 111/62
[2021-07-01] MEDS: Morphine 2mg Syringe 2 MG/ML SYR IV PRN (20:51)
[2021-07-01] MEDS ORDERED: GUAIFENESIN/DEXTROMETHORPHAN LIQD 5 ML UDC NG PRN (22:15)
[2021-07-01] MEDS: ONDANSETRON HCL 4 MG ORAL DISINTEGRATING TAB PO SCH (23:19)
[2021-07-01] MEDS: PANTOPRAZOLE SOD 40 MG TABEC PO SCH (23:19)
[2021-07-01] MEDS: DOCUSATE SODIUM 100 MG CAP PO SCH (23:19)
[2021-07-01] MEDS: SIMVASTATIN 20 MG TAB PO SCH (23:21)
[2021-07-01] MEDS: SENNA-S TABLET PO SCH (23:21)
[2021-07-01] MEDS: BENZONATATE 100 MG CAP PO SCH (23:21)
[2021-07-02] VITALS (8 sets, daily range): BP systolic 97–119; BP diastolic 50–58
[2021-07-02] MEDS: ONDANSETRON HCL 4 MG ORAL DISINTEGRATING TAB PO SCH ×6 (02:00→22:00)
[2021-07-02 05:32] LABS: BASOPHILS # (AUTO) 0.1 (0.0-0.1); BASOPHILS % 1.2 % (0.0-1.0); EOSINOPHILS # (AUTO) 0.3 (0.0-0.4); EOSINOPHILS % 4.2 % (0.0-6.0); HEMATOCRIT 28.7 % (38.2-49.6); HEMOGLOBIN 8.8 g/dL (14.0-18.0); LYMPHOCYTES # (AUTO) 1.7 (1.0-3.2); LYMPHOCYTES % 22.2 % (18.0-39.1); MEAN CORPUSCULAR HEMOGLOBIN 26.5 pg (28-32); MEAN CORPUSCULAR HGB CONC 30.7 g/dL (31-35); MEAN CORPUSCULAR VOLUME 86.4 fL (81-99); MONOCYTES # (AUTO) 0.8 (0.2-0.8); MONOCYTES % 10.8 % (4.4-11.3); NEUTROPHILS # (AUTO) 4.3 (2.1-6.9); NEUTROPHILS % 57.1 % (38.7-80.0); PLATELET COUNT 641 x10e3/uL (140-360); RED BLOOD COUNT 3.32 x10e6/uL (4.3-5.7); RED CELL DISTRIBUTION WIDTH 15.6 % (11.7-14.4)
[2021-07-02 06:00] LABS: ANION GAP 13.9 mmol/L (8-16); CALCIUM 8.7 mg/dL (8.4-10.2); CREATININE, SERUM 0.65 mg/dL (0.72-1.25); MAGNESIUM 1.3 MG/DL (1.3-2.1); POTASSIUM 3.9 mmol/L (3.5-5.1)
[2021-07-02] MEDS: INSULIN DEGLUDEC 36 UNIT SQ SCH (09:00)
[2021-07-02] MEDS: Morphine 2mg Syringe 2 MG/ML SYR IV PRN (10:35)
[2021-07-02] MEDS: SENNA-S TABLET PO SCH ×2 (10:39→17:47)
[2021-07-02] MEDS: DOCUSATE SODIUM 100 MG CAP PO SCH ×2 (10:39→17:47)
[2021-07-02] MEDS: PANTOPRAZOLE SOD 40 MG TABEC PO SCH ×2 (10:39→21:00)
[2021-07-02] MEDS: BENZONATATE 100 MG CAP PO SCH ×3 (10:39→21:00)
[2021-07-02] MEDS: LORATADINE 10 MG TAB PO SCH (10:39)
[2021-07-02] MEDS: SODIUM CHLORIDE 0.9% 1000ML 1,000 ML IV SCH (11:31)
[2021-07-02] MEDS: ENOXAPARIN SOD INJ 40 MG/0.4 ML SYR SC SCH (17:47)
[2021-07-02] MEDS: SIMVASTATIN 20 MG TAB PO SCH (21:00)
[2021-07-02 22:31] LABS: % IRON SATURATION 9 % (15-50); IRON 25 ug/dL (65-175); TOTAL IRON BINDING CAPACITY 274 ug/dL (261-478); TRANSFERRIN 196 mg/dL (174-364)
[2021-07-03] VITALS (8 sets, daily range): BP systolic 106–127; BP diastolic 47–60
[2021-07-03] MEDS: ONDANSETRON HCL 4 MG ORAL DISINTEGRATING TAB PO SCH ×6 (02:00→22:00)
[2021-07-03] MEDS: SODIUM CHLORIDE 0.9% 1000ML 1,000 ML IV SCH ×2 (04:00→20:50)
[2021-07-03] MEDS: Morphine 2mg Syringe 2 MG/ML SYR IV PRN ×5 (05:31→06:25)
[2021-07-03 08:55] LABS: BASOPHILS # (AUTO) 0.1 (0.0-0.1); BASOPHILS % 0.9 % (0.0-1.0); EOSINOPHILS # (AUTO) 0.4 (0.0-0.4); EOSINOPHILS % 5.1 % (0.0-6.0); HEMATOCRIT 30.3 % (38.2-49.6); HEMOGLOBIN 9.4 g/dL (14.0-18.0); LYMPHOCYTES # (AUTO) 2.2 (1.0-3.2); LYMPHOCYTES % 26.7 % (18.0-39.1); MEAN CORPUSCULAR HEMOGLOBIN 26.2 pg (28-32); MEAN CORPUSCULAR VOLUME 84.4 fL (81-99); MONOCYTES # (AUTO) 0.9 (0.2-0.8); MONOCYTES % 11.6 % (4.4-11.3); NEUTROPHILS # (AUTO) 4.2 (2.1-6.9); NEUTROPHILS % 51.6 % (38.7-80.0); PLATELET COUNT 674 x10e3/uL (140-360); RED BLOOD COUNT 3.59 x10e6/uL (4.3-5.7); RED CELL DISTRIBUTION WIDTH 15.1 % (11.7-14.4)
[2021-07-03] MEDS: INSULIN DEGLUDEC 36 UNIT SQ SCH (09:00)
[2021-07-03 09:24] LABS: BLOOD UREA NITROGEN < 5 mg/dL (7-26); CALCIUM 8.9 mg/dL (8.4-10.2); CARBON DIOXIDE 24 mmol/L (22-29); CHLORIDE 102 mmol/L (98-107); CREATININE, SERUM 0.66 mg/dL (0.72-1.25); EST GLOMERULAR FILTRATION RATE 120 ML/MIN (60-); GLUCOSE 109 mg/dL (74-118); MAGNESIUM 1.4 MG/DL (1.3-2.1); SODIUM 134 mmol/L (136-145)
[2021-07-03 09:29] LABS: BUN/CREATININE RATIO 8 (6-25)
[2021-07-03] MEDS: DOCUSATE SODIUM 100 MG CAP PO SCH ×2 (09:46→17:23)
[2021-07-03] MEDS: LORATADINE 10 MG TAB PO SCH (09:46)
[2021-07-03] MEDS: CYANOCOBALAMIN INJ 1,000 MCG/ML VIAL IM SCH (09:46)
[2021-07-03] MEDS: SENNA-S TABLET PO SCH ×2 (09:46→17:23)
[2021-07-03] MEDS: BENZONATATE 100 MG CAP PO SCH ×3 (09:46→21:00)
[2021-07-03] MEDS: PANTOPRAZOLE SOD 40 MG TABEC PO SCH ×2 (09:46→20:50)
[2021-07-03] MEDS: IRON SUCROSE 100 MG in SODIUM CHLORIDE 0.9% 100 ML 100 ML IV SCH (09:48)
[2021-07-03] MEDS: ENOXAPARIN SOD INJ 40 MG/0.4 ML SYR SC SCH (17:23)
[2021-07-03] MEDS: SIMVASTATIN 20 MG TAB PO SCH (21:00)
[2021-07-04] VITALS (9 sets, daily range): BP systolic 73–137; BP diastolic 41–67
[2021-07-04] MEDS: ONDANSETRON HCL 4 MG ORAL DISINTEGRATING TAB PO SCH ×6 (02:00→22:00)
[2021-07-04] MEDS: INSULIN DEGLUDEC 36 UNIT SQ SCH (09:00)
[2021-07-04] MEDS: SENNA-S TABLET PO SCH ×2 (09:17→16:19)
[2021-07-04] MEDS: LORATADINE 10 MG TAB PO SCH (09:17)
[2021-07-04] MEDS: DOCUSATE SODIUM 100 MG CAP PO SCH ×2 (09:17→16:19)
[2021-07-04] MEDS: IRON SUCROSE 100 MG in SODIUM CHLORIDE 0.9% 100 ML 100 ML IV SCH (09:17)
[2021-07-04] MEDS: CYANOCOBALAMIN INJ 1,000 MCG/ML VIAL IM SCH (09:17)
[2021-07-04] MEDS: BENZONATATE 100 MG CAP PO SCH ×3 (09:17→21:00)
[2021-07-04] MEDS: PANTOPRAZOLE SOD 40 MG TABEC PO SCH ×2 (09:17→21:00)
[2021-07-04] MEDS: SODIUM CHLORIDE 0.9% 1000ML 1,000 ML IV SCH (14:33)
[2021-07-04] MEDS: ENOXAPARIN SOD INJ 40 MG/0.4 ML SYR SC SCH (16:19)
[2021-07-04] MEDS: SIMVASTATIN 20 MG TAB PO SCH (21:00)
[2021-07-05] VITALS: BP 122/59
[2021-07-05] MEDS: ONDANSETRON HCL 4 MG ORAL DISINTEGRATING TAB PO SCH ×4 (02:00→14:00)
[2021-07-05] MEDS: Morphine 2mg Syringe 2 MG/ML SYR IV PRN (02:21)
[2021-07-05 04:00] VITALS: BP 125/63
[2021-07-05] MEDS: SODIUM CHLORIDE 0.9% 1000ML 1,000 ML IV SCH ×2 (06:10→21:28)
[2021-07-05 08:00] VITALS: BP 110/56
[2021-07-05] MEDS: CYANOCOBALAMIN INJ 1,000 MCG/ML VIAL IM SCH (08:59)
[2021-07-05] MEDS: LORATADINE 10 MG TAB PO SCH (09:00)
[2021-07-05] MEDS: BENZONATATE 100 MG CAP PO SCH ×3 (09:00→21:28)
[2021-07-05] MEDS: DOCUSATE SODIUM 100 MG CAP PO SCH ×2 (09:00→16:29)
[2021-07-05] MEDS: PANTOPRAZOLE SOD 40 MG TABEC PO SCH ×2 (09:00→21:28)
[2021-07-05] MEDS: SENNA-S TABLET PO SCH ×2 (09:00→16:29)
[2021-07-05] MEDS: IRON SUCROSE 100 MG in SODIUM CHLORIDE 0.9% 100 ML 100 ML IV SCH (09:07)
[2021-07-05] MEDS: INSULIN DEGLUDEC 36 UNIT SQ SCH (09:07)
[2021-07-05 12:00] VITALS: BP 97/54
[2021-07-05] MEDS: PIPERACILLIN/TAZOBACTAM 3.375 GM in SODIUM CHLORIDE 0.9% 50ML 50 ML IV SCH ×2 (14:03→21:28)
[2021-07-05 16:00] VITALS: BP 97/51
[2021-07-05] MEDS: ENOXAPARIN SOD INJ 40 MG/0.4 ML SYR SC SCH (16:29)
[2021-07-05 20:00] VITALS: BP 134/63
[2021-07-05] MEDS: SIMVASTATIN 20 MG TAB PO SCH (21:28)
[2021-07-06] VITALS (7 sets, daily range): BP systolic 100–126; BP diastolic 53–61
[2021-07-06] MEDS: PIPERACILLIN/TAZOBACTAM 3.375 GM in SODIUM CHLORIDE 0.9% 50ML 50 ML IV SCH ×3 (05:16→20:39)
[2021-07-06] MEDS: INSULIN DEGLUDEC 36 UNIT SQ SCH (08:31)
[2021-07-06] MEDS: CYANOCOBALAMIN INJ 1,000 MCG/ML VIAL IM SCH (08:32)
[2021-07-06] MEDS: BENZONATATE 100 MG CAP PO SCH ×3 (08:34→20:39)
[2021-07-06] MEDS: PANTOPRAZOLE SOD 40 MG TABEC PO SCH ×2 (08:34→20:39)
[2021-07-06] MEDS: LORATADINE 10 MG TAB PO SCH (08:34)
[2021-07-06] MEDS: IRON SUCROSE 100 MG in SODIUM CHLORIDE 0.9% 100 ML 100 ML IV SCH (10:49)
[2021-07-06] MEDS: SODIUM CHLORIDE 0.9% 1000ML 1,000 ML IV SCH (10:50)
[2021-07-06] MEDS: ENOXAPARIN SOD INJ 40 MG/0.4 ML SYR SC SCH (17:06)
[2021-07-06] MEDS: SIMVASTATIN 20 MG TAB PO SCH (20:39)
[2021-07-07 00:04] VITALS: BP 152/71
[2021-07-07] MEDS: SODIUM CHLORIDE 0.9% 1000ML 1,000 ML IV SCH ×2 (02:43→11:00)
[2021-07-07 04:00] VITALS: BP 117/58
[2021-07-07] MEDS: PIPERACILLIN/TAZOBACTAM 3.375 GM in SODIUM CHLORIDE 0.9% 50ML 50 ML IV SCH ×2 (05:14→13:49)
[2021-07-07 08:00] VITALS: BP 120/59
[2021-07-07 08:10] VITALS: BP 120/59
[2021-07-07] MEDS: INSULIN DEGLUDEC 36 UNIT SQ SCH ×2 (09:00→13:50)
[2021-07-07] MEDS: LORATADINE 10 MG TAB PO SCH (09:07)
[2021-07-07] MEDS: CYANOCOBALAMIN INJ 1,000 MCG/ML VIAL IM SCH (09:07)
[2021-07-07] MEDS: PANTOPRAZOLE SOD 40 MG TABEC PO SCH (09:07)
[2021-07-07] MEDS: IRON SUCROSE 100 MG in SODIUM CHLORIDE 0.9% 100 ML 100 ML IV SCH (09:07)
[2021-07-07] MEDS: BENZONATATE 100 MG CAP PO SCH ×2 (09:07→17:11)
[2021-07-07 11:24] VITALS: BP 120/60
[2021-07-07 15:59] VITALS: BP 118/59
[2021-07-07] MEDS ORDERED: ONDANSETRON HCL 4 MG ORAL DISINTEGRATING TAB PO PRN (16:00)
[2021-07-07] MEDS ORDERED: AZITHROMYCIN 250 MG TAB PO SCH (16:00)
[2021-07-07] MEDS ORDERED: CEFDINIR300 MG PO (16:19)
[2021-07-07] MEDS ORDERED: METRONIDAZOLE500 MG PO (16:20)
[2021-07-07] MEDS ORDERED: PLAVIX75 MG PO (16:22)
[2021-07-07] MEDS: ENOXAPARIN SOD INJ 40 MG/0.4 ML SYR SC SCH (17:00)
== END 2021-07-07 17:15 | disposition home or self-care (01) | DRG 393 ==
LOC: ER 12:07 → ERHOLD 15:14 → MED/SURG3 18:42
PROVIDERS: ADMIT Internal Medicine; ATTEND Internal Medicine
DX: K91.89 Other postprocedural complications and disorders of digestive system (principal); J69.0 Pneumonitis due to inhalation of food and vomit; A09 Infectious gastroenteritis and colitis, unspecified; N40.0 Benign prostatic hyperplasia without lower urinary tract symptoms; E11.9 Type 2 diabetes mellitus without complications; I25.10 Atherosclerotic heart disease of native coronary artery without angina pectoris; Z95.5 Presence of coronary angioplasty implant and graft; Z85.038 Personal history of other malignant neoplasm of large intestine; E78.5 Hyperlipidemia, unspecified; Z90.49 Acquired absence of other specified parts of digestive tract; Y83.2 Surgical operation with anastomosis, bypass or graft as the cause of abnormal reaction of the patient, or of later complication, without mention of misadventure at the time of the procedure; Z20.822 Contact with and (suspected) exposure to COVID-19
CPT/HCPCS: 36415; 71045; 74177; 80048; 80053; 81001; 82270; 82550; 82553; 82607; 82746; 82948; 83540; 83605; 83630; 83735; 83880; 83993; 84466; 84484; 85025; 85045; 85610; 85730; 86141; 87040; 87045; 87086; 87177; 93005; 97139; 99284; J0456; J1650; J1756; J2270; J2405; J2543; J3420; J7030; J7050; Q0162; Q9967; U0002

== ENCOUNTER 2021-11-04 11:31 | Inpatient (IN) | payer MEDICARE ==
[~2021-11-04] VITALS: Ht 170.2 cm; Wt 73.5 kg
[2021-11-04] VITALS (14 sets, daily range): BP systolic 93–138; BP diastolic 46–85
[~2021-11-04 11:31] MED LIST changes: +CEFDINIR300 MG PO; +METRONIDAZOLE500 MG PO; +PLAVIX75 MG PO
[2021-11-04] MEDS ORDERED: SODIUM CHLORIDE 0.9% 1000ML 1,000 ML IV ONE (11:45)
[2021-11-04] MEDS ORDERED: SODIUM CHLORIDE 0.9% 1000ML 1,000 ML IV STA ×2 (11:57→14:12)
[2021-11-04 12:00] LABS: BASOPHILS % 0.5 % (0.0-1.0); EOSINOPHILS % 0.2 % (0.0-6.0); HEMATOCRIT 41.6 % (38.2-49.6); HEMOGLOBIN 12.9 g/dL (14.0-18.0); LYMPHOCYTES % 11.7 % (18.0-39.1); MEAN CORPUSCULAR HEMOGLOBIN 29.4 pg (28-32); MEAN CORPUSCULAR VOLUME 94.8 fL (81-99); MONOCYTES # (AUTO) 0.7 (0.2-0.8); MONOCYTES % 7.5 % (4.4-11.3); NEUTROPHILS # (AUTO) 6.8 (2.1-6.9); NEUTROPHILS % 78.3 % (38.7-80.0); PLATELET COUNT 223 x10e3/uL (140-360); RED BLOOD COUNT 4.39 x10e6/uL (4.3-5.7); RED CELL DISTRIBUTION WIDTH 17.2 % (11.7-14.4)
[2021-11-04] MEDS ORDERED: ACETAMINOPHEN 325 MG TAB PO ONE (12:00)
[2021-11-04] MEDS ORDERED: CEFTRIAXONE 1 GM in SODIUM CHLORIDE 0.9% 50ML 50 ML IV ONE (12:00)
[2021-11-04 12:21] LABS: CLARITY,URINE CLEAR (CLEAR); COLOR,URINE YELLOW (YELLOW); KETONES,URINE TRACE (NEGATIVE); LEUKOCYTE ESTERASE ,URINE NEGATIVE (NEGATIVE); NITRITE,URINE NEGATIVE (NEGATIVE); PROTEIN,URINE DIPSTICK NEGATIVE (NEGATIVE); URINE UROBILINOGEN 0.2 mg/dL (0.2 - 1)
[2021-11-04 12:22] LABS: ALBUMIN 3.4 g/dL (3.5-5.0); ALBUMIN/GLOBULIN RATIO 0.9 (0.8-2.0); ANION GAP 16.3 mmol/L (8-16); CALCIUM 9.1 mg/dL (8.4-10.2); CREATININE, SERUM 1.12 mg/dL (0.72-1.25); POTASSIUM 4.3 mmol/L (3.5-5.1)
[2021-11-04 12:28] LABS: CREATINE KINASE MB 0.6 ng/mL (0-5.0)
[2021-11-04 12:31] LABS: RBC,URINE 0-5 /HPF (0-5); WBC,URINE (MAN) 0-5 /HPF (0-5)
[2021-11-04 12:32] LABS: BACTERIA,URINE RARE /HPF; EPITHELIAL CELLS,URINE RARE /LPF
[2021-11-04] MEDS ORDERED: Vancomycin IV 1 GM in SODIUM CHLORIDE 0.9% 250ML 250 ML IV STA (14:12)
[2021-11-04] MEDS ORDERED: PIPERACILLIN/TAZOBACTAM 3.375 GM in SODIUM CHLORIDE 0.9% 50ML 50 ML IV STA (14:12)
[2021-11-04] MEDS: NOREPINEPHRINE 8 MG/D5W 250 ML 250 ML IV SCH ×3 (14:28→23:57)
[2021-11-04] MEDS ORDERED: NOREPINEPHRINE 8 MG/D5W 250 ML 250 ML ONE (14:34)
[2021-11-04] MEDS ORDERED: PIPERACILLIN/TAZOBACTAM 3.375 GM VIAL ONE (14:52)
[2021-11-04] MEDS ORDERED: SODIUM CHLORIDE 0.9% 1000ML 1,000 ML IV SCH (16:00)
[2021-11-04] MEDS ORDERED: DEXTROSE 50% SYRINGE 50 ML IV PRN (17:00)
[2021-11-04] MEDS ORDERED: LACTATED RINGER'S 1,000 ML INJ ONE (17:30)
[2021-11-04] MEDS: PANTOPRAZOLE SOD 40 MG TABEC PO SCH (18:02)
[2021-11-04] MEDS: DOCUSATE SODIUM 100 MG CAP PO SCH (18:02)
[2021-11-04] MEDS ORDERED: IOPAMIDOL 370 MG/ML 200 ML INFUS..BTL INJ ONE (18:54)
[2021-11-04] MEDS ORDERED: SODIUM CHLORIDE 0.9% 50ML 50 ML ONE (18:54)
[2021-11-04] MEDS: INSULIN REGULAR, HUMAN 100 UNIT/1 ML SQ SCH (21:00)
[2021-11-04] MEDS: SIMVASTATIN 40 MG TAB PO SCH (21:30)
[2021-11-04] MEDS: PIPERACILLIN/TAZOBACTAM 3.375 GM in SODIUM CHLORIDE 0.9% 50ML 50 ML IV SCH (21:30)
[2021-11-04] MEDS: INSULIN GLARGINE 100 UNITS/ML VIAL SQ SCH (21:51)
[2021-11-05] VITALS (47 sets, daily range): BP systolic 75–120; BP diastolic 40–70
[2021-11-05] MEDS: NOREPINEPHRINE 8 MG/D5W 250 ML 250 ML IV SCH ×3 (01:15→06:14)
[2021-11-05] MEDS: PIPERACILLIN/TAZOBACTAM 3.375 GM in SODIUM CHLORIDE 0.9% 50ML 50 ML IV SCH ×4 (03:09→20:49)
[2021-11-05] MEDS: PANTOPRAZOLE SOD 40 MG TABEC PO SCH ×2 (05:07→16:07)
[2021-11-05] MEDS: INSULIN REGULAR, HUMAN 100 UNIT/1 ML SQ SCH ×4 (07:30→20:49)
[2021-11-05] MEDS ORDERED: SODIUM CHLORIDE 0.9% 1000ML 1,000 ML IV ONE ×2 (08:00→08:45)
[2021-11-05] MEDS: CLOPIDOGREL BISULFATE 75 MG TAB PO SCH (08:20)
[2021-11-05] MEDS: DOCUSATE SODIUM 100 MG CAP PO SCH ×2 (08:20→16:07)
[2021-11-05 08:40] LABS: BASOPHILS # (AUTO) 0.1 (0.0-0.1); BASOPHILS % 0.8 % (0.0-1.0); EOSINOPHILS % 0.4 % (0.0-6.0); HEMATOCRIT 33.7 % (38.2-49.6); HEMOGLOBIN 10.6 g/dL (14.0-18.0); LYMPHOCYTES # (AUTO) 1.4 (1.0-3.2); LYMPHOCYTES % 17.4 % (18.0-39.1); MEAN CORPUSCULAR HEMOGLOBIN 29.4 pg (28-32); MEAN CORPUSCULAR HGB CONC 31.5 g/dL (31-35); MEAN CORPUSCULAR VOLUME 93.6 fL (81-99); MONOCYTES # (AUTO) 0.7 (0.2-0.8); MONOCYTES % 9.2 % (4.4-11.3); NEUTROPHILS # (AUTO) 5.7 (2.1-6.9); NEUTROPHILS % 71.1 % (38.7-80.0); PLATELET COUNT 207 x10e3/uL (140-360)
[2021-11-05 09:01] LABS: ANION GAP 8.6 mmol/L (8-16); CALCIUM 8.2 mg/dL (8.4-10.2); CREATININE, SERUM 0.81 mg/dL (0.72-1.25); POTASSIUM 3.6 mmol/L (3.5-5.1)
[2021-11-05] MEDS ORDERED: POTASSIUM CHLORIDE 20MEQ/100ML 100 ML IV ONE (09:45)
[2021-11-05] MEDS: MIDODRINE HCL 5 MG TABLET PO SCH ×2 (11:57→16:07)
[2021-11-05] MEDS: SIMVASTATIN 40 MG TAB PO SCH (20:49)
[2021-11-05] MEDS: INSULIN GLARGINE 100 UNITS/ML VIAL SQ SCH (20:50)
[2021-11-06] VITALS (39 sets, daily range): BP systolic 70–126; BP diastolic 47–68
[2021-11-06] MEDS: PIPERACILLIN/TAZOBACTAM 3.375 GM in SODIUM CHLORIDE 0.9% 50ML 50 ML IV SCH ×4 (02:33→21:18)
[2021-11-06] MEDS: PANTOPRAZOLE SOD 40 MG TABEC PO SCH ×2 (04:52→16:36)
[2021-11-06 05:03] LABS: BASOPHILS % 0.6 % (0.0-1.0); EOSINOPHILS # (AUTO) 0.2 (0.0-0.4); EOSINOPHILS % 2.5 % (0.0-6.0); HEMOGLOBIN 10.6 g/dL (14.0-18.0); LYMPHOCYTES # (AUTO) 1.8 (1.0-3.2); LYMPHOCYTES % 28.3 % (18.0-39.1); MEAN CORPUSCULAR HGB CONC 31.2 g/dL (31-35); MEAN CORPUSCULAR VOLUME 92.9 fL (81-99); MONOCYTES # (AUTO) 0.9 (0.2-0.8); MONOCYTES % 13.2 % (4.4-11.3); NEUTROPHILS # (AUTO) 3.5 (2.1-6.9); NEUTROPHILS % 54.5 % (38.7-80.0); PLATELET COUNT 166 x10e3/uL (140-360); RED BLOOD COUNT 3.66 x10e6/uL (4.3-5.7); RED CELL DISTRIBUTION WIDTH 16.8 % (11.7-14.4)
[2021-11-06 05:35] LABS: ALBUMIN 2.5 g/dL (3.5-5.0); ALBUMIN/GLOBULIN RATIO 0.8 (0.8-2.0); ANION GAP 9.8 mmol/L (8-16); CALCIUM 8.1 mg/dL (8.4-10.2); CREATININE, SERUM 0.81 mg/dL (0.72-1.25); POTASSIUM 3.8 mmol/L (3.5-5.1)
[2021-11-06] MEDS: INSULIN REGULAR, HUMAN 100 UNIT/1 ML SQ SCH ×4 (07:30→21:19)
[2021-11-06] MEDS: DOCUSATE SODIUM 100 MG CAP PO SCH ×2 (08:36→16:36)
[2021-11-06] MEDS: MIDODRINE HCL 5 MG TABLET PO SCH ×3 (08:36→16:36)
[2021-11-06] MEDS: CLOPIDOGREL BISULFATE 75 MG TAB PO SCH (08:36)
[2021-11-06] MEDS: SIMVASTATIN 40 MG TAB PO SCH (21:18)
[2021-11-06] MEDS: INSULIN GLARGINE 100 UNITS/ML VIAL SQ SCH (21:19)
[2021-11-06] MEDS ORDERED: SODIUM CHLORIDE 0.9% 250ML 250 ML ONE (21:44)
[2021-11-07] VITALS: BP 112/51
[2021-11-07] MEDS: PIPERACILLIN/TAZOBACTAM 3.375 GM in SODIUM CHLORIDE 0.9% 50ML 50 ML IV SCH ×3 (03:23→15:00)
[2021-11-07 04:00] VITALS: BP 103/49
[2021-11-07] MEDS: PANTOPRAZOLE SOD 40 MG TABEC PO SCH ×2 (04:48→17:15)
[2021-11-07] MEDS: INSULIN REGULAR, HUMAN 100 UNIT/1 ML SQ SCH ×3 (07:30→16:30)
[2021-11-07 08:00] VITALS: BP 98/59
[2021-11-07] MEDS: MIDODRINE HCL 5 MG TABLET PO SCH ×3 (08:30→16:00)
[2021-11-07 08:37] VITALS: BP 98/59
[2021-11-07] MEDS ORDERED: LANTUS 3ML100 UNITS/ SC (08:52)
[2021-11-07] MEDS ORDERED: MIDODRINE HCL5 MG PO (08:52)
[2021-11-07] MEDS ORDERED: ONDANSETRON ODT4 MG PO (08:53)
[2021-11-07] MEDS ORDERED: CEPHALEXIN500 MG PO (08:56)
[2021-11-07] MEDS ORDERED: MILK OF MA2400 MG/10 PO (08:56)
[2021-11-07] MEDS ORDERED: MAGNESIUM HYDROXIDE 30 ML UDC PO PRN (09:00)
[2021-11-07] MEDS: CLOPIDOGREL BISULFATE 75 MG TAB PO SCH (09:15)
[2021-11-07] MEDS: DOCUSATE SODIUM 100 MG CAP PO SCH ×2 (09:15→17:15)
[2021-11-07] MEDS: SENNOSIDES 8.6 MG TAB PO SCH ×2 (09:15→17:15)
[2021-11-07 11:49] VITALS: BP 110/52
[2021-11-07 15:43] VITALS: BP 125/57
== END 2021-11-07 18:38 | disposition home or self-care (01) | DRG 867 ==
LOC: ER 12:05 → ERHOLD 16:34 → ICU 19:31 → MED/SURG 11-06 18:20
PROVIDERS: ADMIT Internal Medicine; ATTEND Internal Medicine
PROC: 02HV33Z Insertion of Infusion Device into Superior Vena Cava, Percutaneous Approach (ICD-10-PCS; principal; 2021-11-04)
PROC: 3E043XZ Introduction of Vasopressor into Central Vein, Percutaneous Approach (ICD-10-PCS; 2021-11-04)
DX: T88.0XXA Infection following immunization, initial encounter (principal); A41.9 Sepsis, unspecified organism; R65.21 Severe sepsis with septic shock; G93.41 Metabolic encephalopathy; E87.1 Hypo-osmolality and hyponatremia; T80.29XA Infection following other infusion, transfusion and therapeutic injection, initial encounter; T50.B95A Adverse effect of other viral vaccines, initial encounter; I10 Essential (primary) hypertension; E11.9 Type 2 diabetes mellitus without complications; D64.9 Anemia, unspecified; E78.5 Hyperlipidemia, unspecified; I25.10 Atherosclerotic heart disease of native coronary artery without angina pectoris; N40.0 Benign prostatic hyperplasia without lower urinary tract symptoms; K57.30 Diverticulosis of large intestine without perforation or abscess without bleeding; I25.2 Old myocardial infarction; Z95.5 Presence of coronary angioplasty implant and graft; Z20.822 Contact with and (suspected) exposure to COVID-19; Y84.8 Other medical procedures as the cause of abnormal reaction of the patient, or of later complication, without mention of misadventure at the time of the procedure; Z79.4 Long term (current) use of insulin
CPT/HCPCS: 36415; 36569; 70450; 71045; 74018; 74177; 80048; 80053; 81001; 82140; 82550; 82553; 82948; 83605; 84484; 85025; 87040; 87086; 93005; 93306; 94799; 96372; 97139; 99284; J0696; J1815; J1817; J2543; J3370; J3480; J7030; J7050; J7121; Q9967; U0002

== ENCOUNTER 2022-09-20 15:23 | Observation (INO) | payer MEDICARE ==
[~2022-09-20] VITALS: Ht 170.2 cm; Wt 73.5 kg
[2022-09-20] VITALS (13 sets, daily range): BP systolic 112–168; BP diastolic 52–76
[~2022-09-20 15:23] MED LIST changes: +CEPHALEXIN500 MG PO; +LANTUS 3ML100 UNITS/ SC; +MIDODRINE HCL5 MG PO; +MILK OF MA2400 MG/10 PO; +ONDANSETRON ODT4 MG PO
[2022-09-20 15:55] LABS: BASOPHILS # (AUTO) 0.1 (0.0-0.1); BASOPHILS % 0.6 % (0.0-1.0); EOSINOPHILS # (AUTO) 0.1 (0.0-0.4); EOSINOPHILS % 1.1 % (0.0-6.0); HEMOGLOBIN 12.9 g/dL (14.0-18.0); LYMPHOCYTES # (AUTO) 2.2 (1.0-3.2); LYMPHOCYTES % 21.7 % (18.0-39.1); MEAN CORPUSCULAR HEMOGLOBIN 30.3 pg (28-32); MEAN CORPUSCULAR HGB CONC 30.7 g/dL (31-35); MEAN CORPUSCULAR VOLUME 98.6 fL (81-99); MONOCYTES # (AUTO) 0.8 (0.2-0.8); MONOCYTES % 7.8 % (4.4-11.3); NEUTROPHILS # (AUTO) 6.9 (2.1-6.9); NEUTROPHILS % 67.6 % (38.7-80.0); PLATELET COUNT 250 x10e3/uL (140-360); RED BLOOD COUNT 4.26 x10e6/uL (4.3-5.7); RED CELL DISTRIBUTION WIDTH 13.3 % (11.7-14.4)
[2022-09-20] MEDS ORDERED: SODIUM CHLORIDE FLUSH 10 ML SYR IV PRN (16:00)
[2022-09-20 16:05] LABS: ALBUMIN 4.1 g/dL (3.5-5.0); ANION GAP 16.9 mmol/L (8-16); CALCIUM 9.6 mg/dL (8.4-10.2); CREATININE, SERUM 1.46 mg/dL (0.72-1.25)
[2022-09-20 16:07] LABS: POTASSIUM 4.9 mmol/L (3.5-5.1)
[2022-09-20] MEDS ORDERED: SUCRALFATE1 GM PO (16:24)
[2022-09-20] MEDS ORDERED: JENTADUETO 2.51 EAC2 PO (16:26)
[2022-09-20] MEDS ORDERED: FAMOTIDINE40 MG PO (16:26)
[2022-09-20] MEDS ORDERED: TERBINAFINE HC250 MG PO (16:26)
[2022-09-20] MEDS ORDERED: AVODART0.5 MG PO (16:26)
[2022-09-20] MEDS ORDERED: FLOMAX0.4 MG PO (16:26)
[2022-09-20] MEDS ORDERED: LYRICA50 MG PO (16:29)
[2022-09-20] MEDS ORDERED: SODIUM CHLORIDE 0.9% 1000ML 1,000 ML IV ONE (17:00)
[2022-09-20] MEDS ORDERED: ONDANSETRON HCL INJ 2MG/ML 2ML 2 MG/ML VIAL IV PRN (17:15)
[2022-09-20] MEDS: SODIUM CHLORIDE 0.9% 1000ML 1,000 ML IV SCH (18:16)
[2022-09-21] VITALS (34 sets, daily range): BP systolic 99–148; BP diastolic 39–70
[2022-09-21] MEDS: SODIUM CHLORIDE 0.9% 1000ML 1,000 ML IV SCH ×2 (01:43→10:10)
[2022-09-21 06:56] LABS: BASOPHILS % 0.6 % (0.0-1.0); EOSINOPHILS # (AUTO) 0.1 (0.0-0.4); EOSINOPHILS % 1.6 % (0.0-6.0); HEMATOCRIT 34.5 % (38.2-49.6); HEMOGLOBIN 11.2 g/dL (14.0-18.0); LYMPHOCYTES # (AUTO) 2.4 (1.0-3.2); LYMPHOCYTES % 34.3 % (18.0-39.1); MEAN CORPUSCULAR HEMOGLOBIN 30.4 pg (28-32); MEAN CORPUSCULAR HGB CONC 32.5 g/dL (31-35); MEAN CORPUSCULAR VOLUME 93.8 fL (81-99); MONOCYTES # (AUTO) 0.8 (0.2-0.8); MONOCYTES % 10.8 % (4.4-11.3); NEUTROPHILS # (AUTO) 3.6 (2.1-6.9); PLATELET COUNT 192 x10e3/uL (140-360); RED BLOOD COUNT 3.68 x10e6/uL (4.3-5.7); RED CELL DISTRIBUTION WIDTH 13.3 % (11.7-14.4)
[2022-09-21 07:29] LABS: ANION GAP 9.7 mmol/L (8-16); CALCIUM 8.6 mg/dL (8.4-10.2); CREATININE, SERUM 0.82 mg/dL (0.72-1.25); POTASSIUM 4.7 mmol/L (3.5-5.1)
[2022-09-21] MEDS ORDERED: FAMOTIDINE 20 MG TAB PO SCH (09:00)
[2022-09-21] MEDS ORDERED: INSULIN GLARGINE 100 UNITS/ML VIAL SC SCH (09:00)
[2022-09-21] MEDS ORDERED: DUTASTERIDE 0.5 MG CAP PO SCH (09:00)
[2022-09-21] MEDS ORDERED: PANTOPRAZOLE SOD 40 MG TABEC PO SCH (09:00)
[2022-09-21] MEDS ORDERED: DEXTROSE 50% SYRINGE 50 ML IV PRN (09:00)
[2022-09-21] MEDS ORDERED: MAGNESIUM HYDROXIDE 30 ML UDC PO SCH (09:00)
[2022-09-21] MEDS ORDERED: CLOPIDOGREL BISULFATE 75 MG TAB PO SCH (09:00)
[2022-09-21] MEDS ORDERED: TAMSULOSIN HCL 0.4 MG CAP PO SCH (09:00)
[2022-09-21] MEDS: SUCRALFATE 1 GM TAB PO SCH ×3 (10:04→17:07)
[2022-09-21] MEDS: PREGABALIN 50 MG CAP PO SCH ×2 (10:11→17:07)
[2022-09-21] MEDS: MIDODRINE HCL 5 MG TABLET PO SCH ×2 (12:00→17:07)
[2022-09-21] MEDS: INSULIN REGULAR, HUMAN 100 UNIT/1 ML SQ SCH ×2 (12:09→16:30)
[2022-09-21 13:24] LABS: CLARITY,URINE CLEAR (CLEAR); COLOR,URINE YELLOW (YELLOW)
[2022-09-21 13:25] LABS: KETONES,URINE NEGATIVE (NEGATIVE); LEUKOCYTE ESTERASE ,URINE NEGATIVE (NEGATIVE); NITRITE,URINE NEGATIVE (NEGATIVE); PROTEIN,URINE DIPSTICK NEGATIVE (NEGATIVE); URINE UROBILINOGEN 0.2 mg/dL (0.2 - 1)
[2022-09-21 13:27] LABS: RBC,URINE 0-5 /HPF (0-5); WBC,URINE (MAN) 0-5 /HPF (0-5)
[2022-09-21] MEDS ORDERED: SIMVASTATIN 40 MG TAB PO SCH (21:00)
== END 2022-09-21 18:44 | disposition home or self-care (01) ==
LOC: ER 15:50 → ERHOLD 17:11 → ICU 17:53
PROVIDERS: ADMIT Internal Medicine; ATTEND Internal Medicine
DX: I95.9 Hypotension, unspecified (principal); I25.10 Atherosclerotic heart disease of native coronary artery without angina pectoris; Z95.1 Presence of aortocoronary bypass graft; E11.9 Type 2 diabetes mellitus without complications; E78.2 Mixed hyperlipidemia; E11.69 Type 2 diabetes mellitus with other specified complication; Z86.16 Personal history of COVID-19; N17.9 Acute kidney failure, unspecified; Z20.822 Contact with and (suspected) exposure to COVID-19; Z79.4 Long term (current) use of insulin
CPT/HCPCS: 36415 ×2; 71045; 80048; 80053; 80061; 81001; 82533; 82948; 83036; 83880; 84443; 84484 ×2; 85025 ×2; 93005; 94760; 96372; 99252; 99284; G0378 ×2; J1815; J1817; J7030 ×2; S0164; U0002

== ENCOUNTER 2022-11-19 12:11 | Observation (INO) | payer MEDICARE ==
[~2022-11-19] VITALS: Ht 170.2 cm; Wt 65.3 kg
[~2022-11-19 12:11] MED LIST changes: +FAMOTIDINE40 MG PO; +LYRICA50 MG PO; +SUCRALFATE1 GM PO; +TERBINAFINE HC250 MG PO
[2022-11-19 12:52] LABS: BASOPHILS # (AUTO) 0.1 (0.0-0.1); BASOPHILS % 0.4 % (0.0-1.0); EOSINOPHILS # (AUTO) 0.1 (0.0-0.4); EOSINOPHILS % 0.7 % (0.0-6.0); HEMOGLOBIN 12.6 g/dL (14.0-18.0); LYMPHOCYTES # (AUTO) 2.5 (1.0-3.2); LYMPHOCYTES % 22.4 % (18.0-39.1); MEAN CORPUSCULAR HEMOGLOBIN 30.3 pg (28-32); MEAN CORPUSCULAR HGB CONC 32.3 g/dL (31-35); MEAN CORPUSCULAR VOLUME 93.8 fL (81-99); MONOCYTES # (AUTO) 0.9 (0.2-0.8); MONOCYTES % 7.9 % (4.4-11.3); NEUTROPHILS # (AUTO) 7.6 (2.1-6.9); PLATELET COUNT 315 x10e3/uL (140-360); RED BLOOD COUNT 4.16 x10e6/uL (4.3-5.7); RED CELL DISTRIBUTION WIDTH 13.3 % (11.7-14.4)
[2022-11-19] MEDS ORDERED: Doxycycline IV 100 MG in SODIUM CHLORIDE 0.9% 100 ML IV ONE (13:00)
[2022-11-19 13:08] LABS: ALBUMIN 3.4 g/dL (3.5-5.0); ALBUMIN/GLOBULIN RATIO 0.8 (0.8-2.0); ANION GAP 14.1 mmol/L (8-16); CALCIUM 9.2 mg/dL (8.4-10.2); CREATININE, SERUM 1.07 mg/dL (0.72-1.25); POTASSIUM 5.1 mmol/L (3.5-5.1)
[2022-11-19] MEDS ORDERED: Morphine 4mg INJECTION 4 MG/ML INJ IV PRN (13:30)
[2022-11-19] MEDS ORDERED: ONDANSETRON HCL INJ 2MG/ML 2ML 2 MG/ML VIAL IV PRN (13:30)
[2022-11-19] MEDS: SODIUM CHLORIDE 0.9% 1000ML 1,000 ML IV SCH ×2 (13:47→21:30)
[2022-11-19] MEDS ORDERED: Doxycycline IV 100 MG Vial IV ONE (13:52)
[2022-11-19] MEDS ORDERED: INSULIN REGULAR, HUMAN 100 UNIT/1 ML IV ONE (17:00)
[2022-11-19] MEDS ORDERED: DEXTROSE 50% SYRINGE 50 ML IV PRN (17:00)
[2022-11-19 17:40] VITALS: BP 127/65
[2022-11-19 17:42] VITALS: BP 127/65
[2022-11-19 17:51] VITALS: BP 127/65
[2022-11-19 17:53] VITALS: BP 127/65
[2022-11-19] MEDS ORDERED: FEROSUL325 MG PO (18:00)
[2022-11-19] MEDS ORDERED: OMEGA 3 1,0001 EACH PO (18:02)
[2022-11-19] MEDS: INSULIN REGULAR, HUMAN 100 UNIT/1 ML SQ SCH ×2 (18:26→20:39)
[2022-11-19 20:00] VITALS: BP 148/61
[2022-11-19] MEDS ORDERED: LANTUS 3ML100 UNITS/ SC (20:08)
[2022-11-20] VITALS: BP 110/52
[2022-11-20] MEDS ORDERED: SODIUM CHLORIDE 0.9% 1000ML 1,000 ML IV SCH (01:15)
[2022-11-20 04:00] VITALS: BP 127/52
[2022-11-20] MEDS ORDERED: HEPARIN 25,000 UNIT/D5W 250ML 25,000 UNIT in DEXTROSE 5% 250ML 250 ML IV SCH (05:45)
[2022-11-20] MEDS ORDERED: HEPARIN 25,000 UNIT/D5W 250ML 1,200 UNIT in DEXTROSE 5% 250ML 250 ML IV SCH (05:45)
[2022-11-20 06:02] LABS: BASOPHILS % 0.5 % (0.0-1.0); EOSINOPHILS # (AUTO) 0.1 (0.0-0.4); EOSINOPHILS % 1.4 % (0.0-6.0); HEMATOCRIT 36.8 % (38.2-49.6); HEMOGLOBIN 12.1 g/dL (14.0-18.0); LYMPHOCYTES # (AUTO) 2.7 (1.0-3.2); LYMPHOCYTES % 32.7 % (18.0-39.1); MEAN CORPUSCULAR HEMOGLOBIN 30.5 pg (28-32); MEAN CORPUSCULAR HGB CONC 32.9 g/dL (31-35); MEAN CORPUSCULAR VOLUME 92.7 fL (81-99); MONOCYTES # (AUTO) 0.8 (0.2-0.8); MONOCYTES % 9.9 % (4.4-11.3); NEUTROPHILS # (AUTO) 4.6 (2.1-6.9); NEUTROPHILS % 54.7 % (38.7-80.0); PLATELET COUNT 294 x10e3/uL (140-360); RED BLOOD COUNT 3.97 x10e6/uL (4.3-5.7); RED CELL DISTRIBUTION WIDTH 13.2 % (11.7-14.4)
[2022-11-20 06:17] LABS: POTASSIUM 4.2 mmol/L (3.5-5.1)
[2022-11-20 07:11] LABS: ALBUMIN 2.9 g/dL (3.5-5.0); ALBUMIN/GLOBULIN RATIO 0.8 (0.8-2.0); ANION GAP 14.2 mmol/L (8-16); CREATININE, SERUM 0.84 mg/dL (0.72-1.25)
[2022-11-20] MEDS: INSULIN REGULAR, HUMAN 100 UNIT/1 ML SQ SCH ×4 (07:30→22:21)
[2022-11-20 07:50] VITALS: BP 130/62
[2022-11-20] MEDS: Morphine 4mg INJECTION 4 MG/ML INJ IV PRN (09:13)
[2022-11-20] MEDS: SODIUM CHLORIDE 0.9% 1000ML 1,000 ML IV SCH ×2 (09:16→13:30)
[2022-11-20 11:34] VITALS: BP 121/65
[2022-11-20] MEDS ORDERED: FENTANYL CITRATE/PF 100MCG/2 ML INJ ONE ×2 (12:24→14:59)
[2022-11-20 13:42] LABS: ANION GAP 14.1 mmol/L (8-16); CREATININE, SERUM 0.79 mg/dL (0.72-1.25); POTASSIUM 4.1 mmol/L (3.5-5.1)
[2022-11-20] MEDS ORDERED: POVIDONE IODINE 0.05% 0.05 % ML PO ONE (14:00)
[2022-11-20] MEDS ORDERED: LIDOCAINE HCL 2% LOCAL INJ 5 ML SDV VIAL INJ ONE (14:00)
[2022-11-20] MEDS ORDERED: SEVOFLURANE INHAL SOLN 250 ML PEN BTL ONE (14:00)
[2022-11-20] MEDS ORDERED: PROPOFOL IV EMULSION 10 MG/ML 20 ML VIAL ONE (14:00)
[2022-11-20] MEDS ORDERED: ONDANSETRON HCL INJ 2MG/ML 2ML 2 MG/ML VIAL ONE (14:00)
[2022-11-20] MEDS ORDERED: KETOROLAC TROMETHAMINE 30 MG/ML VIAL ONE (14:00)
[2022-11-20] MEDS ORDERED: MIDAZOLAM HCL 2 MG/2 ML VIAL ONE (14:59)
[2022-11-20] MEDS ORDERED: ROPIVACAINE 0.5% 5 MG/ML 30 ML SDV ONE (14:59)
[2022-11-20] MEDS ORDERED: DEXAMETHASONE SOD PHOS INJ 4 MG/ML SDV ONE (15:00)
[2022-11-20 17:34] VITALS: BP 113/61
[2022-11-20 22:11] VITALS: BP 106/61
[2022-11-20] MEDS: ATORVASTATIN 40 MG TAB PO SCH (22:15)
[2022-11-21] VITALS (8 sets, daily range): BP systolic 122–138; BP diastolic 57–67
[2022-11-21] MEDS: SODIUM CHLORIDE 0.9% 1000ML 1,000 ML IV SCH ×2 (05:02→05:06)
[2022-11-21 07:14] LABS: CHOL/HDL RATIO 4.2 (3.9-4.7)
[2022-11-21] MEDS: Morphine 4mg INJECTION 4 MG/ML INJ IV PRN ×2 (09:38→21:52)
[2022-11-21] MEDS: INSULIN REGULAR, HUMAN 100 UNIT/1 ML SQ SCH ×4 (09:39→22:02)
[2022-11-21] MEDS: HYDROGEN PEROXIDE 120 ML BTL TOP SCH ×2 (12:02→17:00)
[2022-11-21] MEDS ORDERED: HYDROCODONE/APAP 5MG-325MG TAB PO PRN (12:15)
[2022-11-21] MEDS: ATORVASTATIN 40 MG TAB PO SCH (21:51)
[2022-11-22 00:36] VITALS: BP 124/63
[2022-11-22] MEDS: Morphine 4mg INJECTION 4 MG/ML INJ IV PRN ×3 (03:35→14:51)
[2022-11-22 05:46] VITALS: BP 121/60
[2022-11-22] MEDS: INSULIN REGULAR, HUMAN 100 UNIT/1 ML SQ SCH ×3 (07:30→17:33)
[2022-11-22 08:38] VITALS: BP 121/60
[2022-11-22] MEDS ORDERED: ASPIRIN 81 MG CHEW TAB PO SCH (09:00)
[2022-11-22 09:21] VITALS: BP 118/58
[2022-11-22 12:17] VITALS: BP 123/55
[2022-11-22] MEDS: HYDROGEN PEROXIDE 120 ML BTL TOP SCH ×2 (13:30→17:33)
[2022-11-22] MEDS ORDERED: ATORVASTATIN CA40 MG PO (16:04)
[2022-11-22] MEDS ORDERED: LEVOFLOXACIN750 MG PO (16:04)
[2022-11-22 16:19] VITALS: BP 96/58
== END 2022-11-22 17:40 | disposition home or self-care (01) ==
LOC: ER 12:16 → ERHOLD 13:28 → MED/SURG3 17:25
PROVIDERS: ADMIT Internal Medicine; ATTEND Internal Medicine
DX: E11.69 Type 2 diabetes mellitus with other specified complication (principal); E11.52 Type 2 diabetes mellitus with diabetic peripheral angiopathy with gangrene; M86.142 Other acute osteomyelitis, left hand; I96 Gangrene, not elsewhere classified; L08.89 Other specified local infections of the skin and subcutaneous tissue; M65.842 Other synovitis and tenosynovitis, left hand; D64.9 Anemia, unspecified; E11.65 Type 2 diabetes mellitus with hyperglycemia; I10 Essential (primary) hypertension; I25.2 Old myocardial infarction; I25.10 Atherosclerotic heart disease of native coronary artery without angina pectoris; E78.5 Hyperlipidemia, unspecified; Z20.822 Contact with and (suspected) exposure to COVID-19; Z79.4 Long term (current) use of insulin; Z79.02 Long term (current) use of antithrombotics/antiplatelets; Z79.899 Other long term (current) drug therapy; Z86.74 Personal history of sudden cardiac arrest; Z95.5 Presence of coronary angioplasty implant and graft
CPT/HCPCS: 0223U; 26951; 36415 ×4; 73140; 80053 ×2; 80061; 82948 ×4; 83036; 85025 ×2; 87040; 87071; 87075; 87102; 87116; 87186; 87205; 87206 ×2; 88305; 88311; 93930; 94799 ×2; 96360; 96361 ×3; 99284; G0378 ×4; J1100; J1885; J2001; J2250; J2270 ×3; J2405 ×2; J2543 ×4; J2704; J2795; J3010; J7030 ×2; J7050; 80048; 88304

== ENCOUNTER 2023-06-14 08:44 | Outpatient (RCR) | payer MEDICARE ==
[~2023-06-14 08:44] MED LIST changes: +ATORVASTATIN CA40 MG PO; +FEROSUL325 MG PO; +LEVOFLOXACIN750 MG PO; +OMEGA 3 1,0001 EACH PO
[2023-06-14] MEDS ORDERED: MINERAL OIL/PETROLAT/GLYCERI 6OZ BTL ONE (12:16)
== END 2023-06-15 ==
LOC: WCC 08:44
PROVIDERS: ATTEND Plastic Surgery
DX: S61.202A Unspecified open wound of right middle finger without damage to nail, initial encounter (principal)
CPT/HCPCS: 36415; 82948

== ENCOUNTER 2024-03-15 22:14 | Inpatient (IN) | payer MEDICARE ==
[~2024-03-15] VITALS: Ht 170.2 cm; Wt 65.8 kg
[2024-03-15] MEDS ORDERED: SODIUM CHLORIDE FLUSH 10 ML SYR INJ PRN (22:45)
[2024-03-15 23:16] LABS: BASOPHILS # (AUTO) 0.1 (0.0-0.1); BASOPHILS % 0.4 % (0.0-1.0); EOSINOPHILS # (AUTO) 0.3 (0.0-0.4); EOSINOPHILS % 1.9 % (0.0-6.0); HEMATOCRIT 25.1 % (38.2-49.6); HEMOGLOBIN 7.7 g/dL (14.0-18.0); LYMPHOCYTES # (AUTO) 3.4 (1.0-3.2); LYMPHOCYTES % 22.6 % (18.0-39.1); MEAN CORPUSCULAR HEMOGLOBIN 27.7 pg (28-32); MEAN CORPUSCULAR HGB CONC 30.7 g/dL (31-35); MEAN CORPUSCULAR VOLUME 90.3 fL (81-99); MONOCYTES # (AUTO) 1.4 (0.2-0.8); MONOCYTES % 9.6 % (4.4-11.3); NEUTROPHILS # (AUTO) 9.4 (2.1-6.9); NEUTROPHILS % 62.8 % (38.7-80.0); PLATELET COUNT 400 x10e3/uL (140-360); RED BLOOD COUNT 2.78 x10e6/uL (4.3-5.7); RED CELL DISTRIBUTION WIDTH 15.9 % (11.7-14.4)
[2024-03-15] MEDS: SODIUM CHLORIDE 0.9% 1000ML 1,000 ML IV ONE (23:23)
[2024-03-15 23:34] LABS: ALBUMIN 2.4 g/dL (3.5-5.0); ALBUMIN/GLOBULIN RATIO 0.9 (0.8-2.0); ANION GAP 13.4 mmol/L (8-16); BILIRUBIN,TOTAL 0.2 mg/dL (0.2-1.2); CALCIUM 7.9 mg/dL (8.4-10.2); CREATININE, SERUM 0.82 mg/dL (0.72-1.25); POTASSIUM 4.4 mmol/L (3.5-5.1)
[2024-03-16] VITALS (59 sets, daily range): BP systolic 81–136; BP diastolic 35–90; PULSE 75–105; RESP 10–20; TEMP 97.9–98.6; O2SAT 95–100
[2024-03-16 00:02] LABS: INR 1.03; PROTHROMBIN TIME 14.2 seconds (11.9-14.5)
[2024-03-16] MEDS: SODIUM CHLORIDE 0.9% 250ML 250 ML IV ONE (01:35)
[2024-03-16] MEDS ORDERED: IOPAMIDOL 370 MG/ML 100 ML INFUS..BTL INJ ONE (02:30)
[2024-03-16] MEDS ORDERED: SODIUM CHLORIDE 0.9% 100 ML ONE (02:30)
[2024-03-16] MEDS: SODIUM CHLORIDE 0.9% 1000ML 1,000 ML IV SCH ×2 (04:06→19:27)
[2024-03-16] MEDS: TAMSULOSIN HCL 0.4 MG CAP PO SCH (08:47)
[2024-03-16] MEDS: SOD PHOSPHATE/SOD BIPHOSPHATE ENEMA 132 ML BTL PR ONE ×2 (09:33)
[2024-03-16] MEDS: METRONIDAZOLE 500MG/NS 100ML 100 ML IV SCH (09:34)
[2024-03-16] MEDS: DUTASTERIDE 0.5 MG CAP PO SCH (09:35)
[2024-03-16] MEDS ORDERED: GABAPENTIN300 MG PO (09:56)
[2024-03-16] MEDS: GABAPENTIN 300 MG CAP PO SCH (10:26)
[2024-03-16 11:09] LABS: BASOPHILS # (AUTO) 0.1 (0.0-0.1); BASOPHILS % 0.6 % (0.0-1.0); EOSINOPHILS # (AUTO) 0.2 (0.0-0.4); EOSINOPHILS % 1.8 % (0.0-6.0); HEMATOCRIT 36.7 % (38.2-49.6); LYMPHOCYTES % 18.1 % (18.0-39.1); MEAN CORPUSCULAR HEMOGLOBIN 29.3 pg (28-32); MEAN CORPUSCULAR HGB CONC 32.7 g/dL (31-35); MEAN CORPUSCULAR VOLUME 89.5 fL (81-99); MONOCYTES # (AUTO) 1.1 (0.2-0.8); MONOCYTES % 9.4 % (4.4-11.3); NEUTROPHILS # (AUTO) 7.5 (2.1-6.9); NEUTROPHILS % 67.1 % (38.7-80.0); PLATELET COUNT 277 x10e3/uL (140-360); RED CELL DISTRIBUTION WIDTH 16.8 % (11.7-14.4); WHITE BLOOD COUNT 11.15 x10e3/uL (4.8-10.8)
[2024-03-16 11:28] LABS: ANION GAP 12.3 mmol/L (8-16); CREATININE, SERUM 0.71 mg/dL (0.72-1.25); POTASSIUM 4.3 mmol/L (3.5-5.1)
[2024-03-16] MEDS: INSULIN REGULAR, HUMAN 100 UNIT/1 ML SQ SCH (11:30)
[2024-03-16] MEDS ORDERED: SUGAMMADEX SODIUM 200 MG/2 ML VIAL IV ONE (11:47)
[2024-03-16] MEDS ORDERED: ACETAMINOPHEN 1000 MG/100 ML IV ONE (11:47)
[2024-03-16] MEDS ORDERED: FAMOTIDINE 20 MG/2 ML VIAL IV ONE (11:47)
[2024-03-16] MEDS ORDERED: SODIUM CHLORIDE 0.9% INJ 100 ML BAG ONE (11:47)
[2024-03-16] MEDS ORDERED: ROCURONIUM BROMIDE 10 MG/ML 5ML VIAL IV ONE (11:47)
[2024-03-16] MEDS ORDERED: PHENYLEPHRINE HCL 1% 10 MG/ML VIAL ONE (12:14)
[2024-03-16] MEDS ORDERED: LIDOCAINE HCL 2% LOCAL INJ 5 ML SDV VIAL INJ ONE (12:14)
[2024-03-16] MEDS ORDERED: PROPOFOL IV EMULSION 10 MG/ML 20 ML VIAL ONE (12:14)
[2024-03-16 17:50] LABS: HEMATOCRIT 39.2 % (38.2-49.6); HEMOGLOBIN 12.4 g/dL (14.0-18.0)
[2024-03-16] MEDS: ACETAMINOPHEN 1000 MG/100 ML IV PRN (20:21)
[2024-03-16] MEDS ORDERED: ATORVASTATIN 40 MG TAB PO SCH (21:00)
[2024-03-17] VITALS (24 sets, daily range): BP systolic 93–142; BP diastolic 44–67; PULSE 71–108; RESP 3–21; TEMP 97.8–98.1; O2SAT 97–100
[2024-03-17 05:26] LABS: BASOPHILS # (AUTO) 0.1 (0.0-0.1); BASOPHILS % 0.4 % (0.0-1.0); EOSINOPHILS # (AUTO) 0.3 (0.0-0.4); HEMATOCRIT 38.5 % (38.2-49.6); HEMOGLOBIN 12.2 g/dL (14.0-18.0); LYMPHOCYTES # (AUTO) 2.5 (1.0-3.2); LYMPHOCYTES % 19.6 % (18.0-39.1); MEAN CORPUSCULAR HEMOGLOBIN 28.6 pg (28-32); MEAN CORPUSCULAR HGB CONC 31.7 g/dL (31-35); MEAN CORPUSCULAR VOLUME 90.2 fL (81-99); MONOCYTES # (AUTO) 1.4 (0.2-0.8); MONOCYTES % 11.3 % (4.4-11.3); NEUTROPHILS # (AUTO) 8.1 (2.1-6.9); NEUTROPHILS % 63.6 % (38.7-80.0); PLATELET COUNT 306 x10e3/uL (140-360); RED BLOOD COUNT 4.27 x10e6/uL (4.3-5.7); RED CELL DISTRIBUTION WIDTH 16.4 % (11.7-14.4); WHITE BLOOD COUNT 12.72 x10e3/uL (4.8-10.8)
[2024-03-17] MEDS ORDERED: PNEUMOCOCCAL VACCINE POLYVALENT 23 MCG/0.5 ML VIAL IM SCH (05:31)
[2024-03-17 06:11] LABS: ALBUMIN 2.5 g/dL (3.5-5.0); ALBUMIN/GLOBULIN RATIO 0.9 (0.8-2.0); ANION GAP 9.7 mmol/L (8-16); BILIRUBIN,TOTAL 0.4 mg/dL (0.2-1.2); CALCIUM 8.2 mg/dL (8.4-10.2); CREATININE, SERUM 0.65 mg/dL (0.72-1.25); POTASSIUM 3.7 mmol/L (3.5-5.1); TOTAL PROTEIN 5.3 g/dL (6.5-8.1)
[2024-03-17] MEDS: ACETAMINOPHEN 1000 MG/100 ML IV PRN (13:29)
[2024-03-17 16:37] LABS: HEMATOCRIT 33.7 % (38.2-49.6); HEMOGLOBIN 10.8 g/dL (14.0-18.0)
[2024-03-17] MEDS ORDERED: IOPAMIDOL 370 MG/ML 100 ML INFUS..BTL INJ ONE (17:02)
[2024-03-18] VITALS (16 sets, daily range): BP systolic 79–131; BP diastolic 39–65; PULSE 77–100; RESP 10–18; TEMP 97.8–98.5; O2SAT 94–100
[2024-03-18 00:22] LABS: HEMATOCRIT 28.3 % (38.2-49.6); HEMOGLOBIN 8.9 g/dL (14.0-18.0)
[2024-03-18 06:38] LABS: HEMATOCRIT 26.7 % (38.2-49.6); HEMOGLOBIN 8.5 g/dL (14.0-18.0)
[2024-03-18 12:56] LABS: HEMATOCRIT 25.4 % (38.2-49.6); HEMOGLOBIN 8.1 g/dL (14.0-18.0)
[2024-03-18] MEDS: OCTREOTIDE ACETATE 500 MCG in SODIUM CHLORIDE 0.9% 250ML 249 ML IV SCH (13:44)
[2024-03-18] MEDS: HYDROCODONE/APAP 5MG-325MG TAB PO PRN (15:46)
[2024-03-18 18:38] LABS: HEMOGLOBIN 8.2 g/dL (14.0-18.0)
[2024-03-18] MEDS: MIDODRINE 2.5 MG TAB PO SCH (22:29)
[2024-03-19] VITALS (35 sets, daily range): BP systolic 71–132; BP diastolic 42–62; PULSE 75–101; RESP 9–21; TEMP 97.6–98.1; O2SAT 90–100
[2024-03-19 00:29] LABS: HEMOGLOBIN 7.1 g/dL (14.0-18.0)
[2024-03-19 05:50] LABS: HEMOGLOBIN 6.1 g/dL (14.0-18.0)
[2024-03-19 05:51] LABS: HEMATOCRIT 19.7 % (38.2-49.6)
[2024-03-19 06:04] LABS: ANION GAP 10.2 mmol/L (8-16); CALCIUM 7.6 mg/dL (8.4-10.2); CREATININE, SERUM 0.63 mg/dL (0.72-1.25); POTASSIUM 4.2 mmol/L (3.5-5.1)
[2024-03-19] MEDS: SODIUM CHLORIDE 0.9% 250ML 250 ML IV ONE ×2 (08:30→13:33)
[2024-03-19] MEDS: SODIUM CHLORIDE 0.9% 250ML 250 ML ONE ×2 (08:31→18:43)
[2024-03-19 12:12] LABS: HEMATOCRIT 21.5 % (38.2-49.6)
[2024-03-19 12:15] LABS: HEMOGLOBIN 6.8 g/dL (14.0-18.0)
[2024-03-19] MEDS ORDERED: HEPARIN SOD (PORCINE) 1000 UNIT/ML SDV ONE (14:39)
[2024-03-19] MEDS: SODIUM CHLORIDE 0.9% 500ML 500 ML IV ONE (16:15)
[2024-03-20] VITALS (48 sets, daily range): BP systolic 89–160; BP diastolic 46–137; PULSE 71–110; RESP 8–22; TEMP 97.4–98.5; O2SAT 94–100
[2024-03-20 01:47] LABS: HEMATOCRIT 29.7 % (38.2-49.6); HEMOGLOBIN 9.9 g/dL (14.0-18.0)
[2024-03-20 07:01] LABS: BASOPHILS # (AUTO) 0.1 (0.0-0.1); BASOPHILS % 0.5 % (0.0-1.0); EOSINOPHILS # (AUTO) 0.5 (0.0-0.4); EOSINOPHILS % 3.8 % (0.0-6.0); HEMATOCRIT 27.5 % (38.2-49.6); HEMOGLOBIN 8.7 g/dL (14.0-18.0); LYMPHOCYTES # (AUTO) 2.2 (1.0-3.2); LYMPHOCYTES % 18.1 % (18.0-39.1); MEAN CORPUSCULAR HEMOGLOBIN 27.9 pg (28-32); MEAN CORPUSCULAR HGB CONC 31.6 g/dL (31-35); MEAN CORPUSCULAR VOLUME 88.1 fL (81-99); MONOCYTES # (AUTO) 0.9 (0.2-0.8); MONOCYTES % 7.5 % (4.4-11.3); NEUTROPHILS # (AUTO) 8.1 (2.1-6.9); PLATELET COUNT 237 x10e3/uL (140-360); RED BLOOD COUNT 3.12 x10e6/uL (4.3-5.7); RED CELL DISTRIBUTION WIDTH 15.9 % (11.7-14.4); WHITE BLOOD COUNT 12.24 x10e3/uL (4.8-10.8)
[2024-03-20 07:28] LABS: ALANINE AMINOTRANSFERASE < 6 IU/L (0-55); ALBUMIN 1.9 g/dL (3.5-5.0); ALBUMIN/GLOBULIN RATIO 1.1 (0.8-2.0); ALKALINE PHOSPHATASE 35 IU/L (40-150); BILIRUBIN,TOTAL 0.2 mg/dL (0.2-1.2); BLOOD UREA NITROGEN 6 mg/dL (7-26); BUN/CREATININE RATIO 10 (6-25); CALCIUM 7.2 mg/dL (8.4-10.2); CARBON DIOXIDE 22 mmol/L (22-29); CHLORIDE 110 mmol/L (98-107); CREATININE, SERUM 0.58 mg/dL (0.72-1.25); EST GLOMERULAR FILTRATION RATE 105 ML/MIN (>=60); GLUCOSE 148 mg/dL (74-118); SODIUM 136 mmol/L (136-145); TOTAL PROTEIN 3.7 g/dL (6.5-8.1)
[2024-03-20] MEDS: SODIUM CHLORIDE 0.9% 250ML 250 ML IV ONE (10:46)
[2024-03-20] MEDS ORDERED: PROPOFOL IV EMULSION 10 MG/ML 20 ML VIAL ONE (11:57)
[2024-03-20] MEDS ORDERED: ONDANSETRON HCL INJ 2MG/ML 2ML 2 MG/ML VIAL ONE (11:57)
[2024-03-20] MEDS ORDERED: FAMOTIDINE 20 MG/2 ML VIAL IV ONE (11:57)
[2024-03-20] MEDS ORDERED: SUGAMMADEX SODIUM 200 MG/2 ML VIAL IV ONE (11:57)
[2024-03-20] MEDS ORDERED: SEVOFLURANE INHAL SOLN 250 ML PEN BTL ONE (11:57)
[2024-03-20] MEDS ORDERED: ACETAMINOPHEN 1000 MG/100 ML IV ONE (11:57)
[2024-03-20] MEDS ORDERED: PHENYLEPHRINE HCL 1% 10 MG/ML VIAL ONE (11:57)
[2024-03-20] MEDS ORDERED: LIDOCAINE HCL 2% LOCAL INJ 5 ML SDV VIAL INJ ONE (11:57)
[2024-03-20] MEDS ORDERED: ROCURONIUM BROMIDE 10 MG/ML 5ML VIAL IV ONE (11:57)
[2024-03-20] MEDS ORDERED: FENTANYL CITRATE/PF 100MCG/2 ML INJ ONE (12:16)
[2024-03-20] MEDS ORDERED: SODIUM CHLORIDE 0.9% 250ML 250 ML ONE (12:42)
[2024-03-20] MEDS ORDERED: NOREPINEPHRINE 8 MG/D5W 250 ML 250 ML ONE (13:42)
[2024-03-20] MEDS ORDERED: BUPIVACAINE 0.5%/EPI 30 ML SDV INJ ONE (14:50)
[2024-03-20 16:02] LABS: HEMATOCRIT 29.6 % (38.2-49.6); HEMOGLOBIN 9.5 g/dL (14.0-18.0)
[2024-03-20] MEDS: SODIUM CHLORIDE 0.9% 250ML IRRIG IR SCH (17:59)
[2024-03-20] MEDS: HYDROMORPHONE 1MG/1ML INJ IV PRN (23:25)
[2024-03-21] VITALS (27 sets, daily range): BP systolic 100–149; BP diastolic 59–77; PULSE 85–106; RESP 11–21; TEMP 97.8–98.6; O2SAT 97–100
[2024-03-21] MEDS: ONDANSETRON HCL INJ 2MG/ML 2ML 2 MG/ML VIAL IV PRN (07:47)
[2024-03-22] VITALS (15 sets, daily range): BP systolic 95–151; BP diastolic 48–62; PULSE 77–99; RESP 10–17; TEMP 98–98.3; O2SAT 97–100
[2024-03-22 06:16] LABS: BASOPHILS # (AUTO) 0.1 (0.0-0.1); BASOPHILS % 0.3 % (0.0-1.0); EOSINOPHILS # (AUTO) 0.2 (0.0-0.4); EOSINOPHILS % 1.2 % (0.0-6.0); HEMATOCRIT 29.4 % (38.2-49.6); HEMOGLOBIN 9.2 g/dL (14.0-18.0); LYMPHOCYTES # (AUTO) 1.3 (1.0-3.2); LYMPHOCYTES % 8.8 % (18.0-39.1); MEAN CORPUSCULAR HGB CONC 31.3 g/dL (31-35); MEAN CORPUSCULAR VOLUME 89.4 fL (81-99); MONOCYTES # (AUTO) 1.2 (0.2-0.8); MONOCYTES % 8.1 % (4.4-11.3); NEUTROPHILS # (AUTO) 11.6 (2.1-6.9); NEUTROPHILS % 79.9 % (38.7-80.0); PLATELET COUNT 295 x10e3/uL (140-360); RED BLOOD COUNT 3.29 x10e6/uL (4.3-5.7); RED CELL DISTRIBUTION WIDTH 16.3 % (11.7-14.4); WHITE BLOOD COUNT 14.57 x10e3/uL (4.8-10.8)
[2024-03-22 06:38] LABS: ALBUMIN 1.8 g/dL (3.5-5.0); ALBUMIN/GLOBULIN RATIO 0.8 (0.8-2.0); ALKALINE PHOSPHATASE 38 IU/L (40-150); ANION GAP 10.7 mmol/L (8-16); BILIRUBIN,TOTAL 0.3 mg/dL (0.2-1.2); BLOOD UREA NITROGEN 6 mg/dL (7-26); BUN/CREATININE RATIO 10 (6-25); CALCIUM 7.5 mg/dL (8.4-10.2); CARBON DIOXIDE 21 mmol/L (22-29); CHLORIDE 112 mmol/L (98-107); EST GLOMERULAR FILTRATION RATE 104 ML/MIN (>=60); GLUCOSE 79 mg/dL (74-118); POTASSIUM 3.7 mmol/L (3.5-5.1); SODIUM 140 mmol/L (136-145)
[2024-03-22 06:50] LABS: ALANINE AMINOTRANSFERASE < 6 IU/L (0-55)
[2024-03-22] MEDS: HEPARIN SOD (PORCINE) 1000 UNIT/ML SDV ONE (08:08)
[2024-03-22] MEDS: TRAVOPROST 0.004% OP SCH (20:13)
[2024-03-23] VITALS (18 sets, daily range): BP systolic 110–143; BP diastolic 37–68; PULSE 77–98; RESP 11–24; TEMP 97.9–98.6; O2SAT 96–100
[2024-03-24] VITALS (10 sets, daily range): BP systolic 86–112; BP diastolic 42–54; PULSE 87–101; RESP 16–20; TEMP 98.1–99; O2SAT 94–98
[2024-03-24 07:31] LABS: BASOPHILS % 0.4 % (0.0-1.0); EOSINOPHILS # (AUTO) 0.4 (0.0-0.4); EOSINOPHILS % 3.9 % (0.0-6.0); HEMOGLOBIN 9.1 g/dL (14.0-18.0); LYMPHOCYTES # (AUTO) 1.8 (1.0-3.2); LYMPHOCYTES % 18.5 % (18.0-39.1); MEAN CORPUSCULAR HEMOGLOBIN 28.7 pg (28-32); MEAN CORPUSCULAR HGB CONC 31.4 g/dL (31-35); MEAN CORPUSCULAR VOLUME 91.5 fL (81-99); MONOCYTES # (AUTO) 0.7 (0.2-0.8); MONOCYTES % 6.9 % (4.4-11.3); NEUTROPHILS # (AUTO) 6.8 (2.1-6.9); NEUTROPHILS % 68.9 % (38.7-80.0); PLATELET COUNT 381 x10e3/uL (140-360); RED BLOOD COUNT 3.17 x10e6/uL (4.3-5.7); RED CELL DISTRIBUTION WIDTH 16.4 % (11.7-14.4); WHITE BLOOD COUNT 9.86 x10e3/uL (4.8-10.8)
[2024-03-24 08:05] LABS: CARBON DIOXIDE 16 mmol/L (22-29); CHLORIDE 108 mmol/L (98-107); POTASSIUM 3.5 mmol/L (3.5-5.1); SODIUM 135 mmol/L (136-145)
[2024-03-24 08:06] LABS: ANION GAP 14.5 mmol/L (8-16); BLOOD UREA NITROGEN < 5 mg/dL (7-26); CALCIUM 7.6 mg/dL (8.4-10.2); CREATININE, SERUM 0.65 mg/dL (0.72-1.25); EST GLOMERULAR FILTRATION RATE 101 ML/MIN (>=60)
[2024-03-24 08:11] LABS: BUN/CREATININE RATIO 8 (6-25)
[2024-03-24 08:16] LABS: GLUCOSE 56 mg/dL (74-118)
[2024-03-24] MEDS: DEXTROSE 50% SYRINGE 50 ML IV PRN (08:23)
[2024-03-24] MEDS: DEXTROSE 5%/0.45% SOD CHL 1,000 ML IV SCH (10:36)
[2024-03-24] MEDS ORDERED: PROMETHAZINE 12.5MG/ NACL 0.9% 12.5 MG/50 ML BAG IV PRN (14:15)
[2024-03-24] MEDS: PHENAZOPYRIDINE HCL 100 MG TAB PO PRN (16:36)
[2024-03-25] VITALS: BP 101/42; PULSE 93; RESP 18; TEMP 98.8; O2SAT 98
[2024-03-25 04:00] VITALS: BP 100/49; PULSE 86; RESP 18; TEMP 98.9; O2SAT 98
[2024-03-25 07:45] VITALS: BP 123/52; PULSE 90; RESP 18; TEMP 98.5; O2SAT 97
[2024-03-25 08:00] VITALS: BP 120/52; PULSE 90; RESP 18; TEMP 98.5; O2SAT 97
[2024-03-25 16:05] VITALS: BP 118/62; PULSE 90; RESP 18; TEMP 98.1; O2SAT 97
[2024-03-25 20:00] VITALS: BP_SYST 118; BP_SYST 126; BP_DIAS 62; BP_DIAS 65; PULSE 90; PULSE 92; RESP 18; TEMP 98.1; O2SAT 100; O2SAT 97
[2024-03-26] VITALS (8 sets, daily range): BP systolic 93–119; BP diastolic 46–57; PULSE 87–96; RESP 18; TEMP 97.7–98.6; O2SAT 95–98
[2024-03-26 06:56] LABS: BASOPHILS % 0.5 % (0.0-1.0); EOSINOPHILS # (AUTO) 0.3 (0.0-0.4); EOSINOPHILS % 3.8 % (0.0-6.0); HEMATOCRIT 26.7 % (38.2-49.6); HEMOGLOBIN 8.9 g/dL (14.0-18.0); LYMPHOCYTES # (AUTO) 1.4 (1.0-3.2); LYMPHOCYTES % 16.3 % (18.0-39.1); MEAN CORPUSCULAR HEMOGLOBIN 29.4 pg (28-32); MEAN CORPUSCULAR HGB CONC 33.3 g/dL (31-35); MEAN CORPUSCULAR VOLUME 88.1 fL (81-99); MONOCYTES # (AUTO) 0.7 (0.2-0.8); MONOCYTES % 7.9 % (4.4-11.3); NEUTROPHILS % 70.7 % (38.7-80.0); PLATELET COUNT 428 x10e3/uL (140-360); RED BLOOD COUNT 3.03 x10e6/uL (4.3-5.7); RED CELL DISTRIBUTION WIDTH 16.1 % (11.7-14.4); WHITE BLOOD COUNT 8.48 x10e3/uL (4.8-10.8)
[2024-03-26 07:10] LABS: ANION GAP 8.8 mmol/L (8-16); BLOOD UREA NITROGEN < 5 mg/dL (7-26); CALCIUM 7.5 mg/dL (8.4-10.2); CARBON DIOXIDE 24 mmol/L (22-29); CHLORIDE 106 mmol/L (98-107); EST GLOMERULAR FILTRATION RATE 104 ML/MIN (>=60); GLUCOSE 138 mg/dL (74-118); SODIUM 136 mmol/L (136-145)
[2024-03-26 07:22] LABS: BUN/CREATININE RATIO 8 (6-25)
[2024-03-26 07:23] LABS: POTASSIUM 2.8 mmol/L (3.5-5.1)
[2024-03-26] MEDS: MAGNESIUM SULFATE 2GM/50ML 50 ML IV ONE (08:15)
[2024-03-26] MEDS: POTASSIUM CHLORIDE 20 MEQ TAB CR PO STA (08:15)
[2024-03-26 15:23] LABS: BASOPHILS % 0.5 % (0.0-1.0); EOSINOPHILS # (AUTO) 0.2 (0.0-0.4); EOSINOPHILS % 2.8 % (0.0-6.0); HEMOGLOBIN 9.1 g/dL (14.0-18.0); LYMPHOCYTES # (AUTO) 1.1 (1.0-3.2); LYMPHOCYTES % 12.9 % (18.0-39.1); MEAN CORPUSCULAR HEMOGLOBIN 28.7 pg (28-32); MEAN CORPUSCULAR HGB CONC 32.5 g/dL (31-35); MEAN CORPUSCULAR VOLUME 88.3 fL (81-99); MONOCYTES # (AUTO) 0.6 (0.2-0.8); MONOCYTES % 7.4 % (4.4-11.3); NEUTROPHILS # (AUTO) 6.5 (2.1-6.9); NEUTROPHILS % 75.8 % (38.7-80.0); PLATELET COUNT 442 x10e3/uL (140-360); RED BLOOD COUNT 3.17 x10e6/uL (4.3-5.7); RED CELL DISTRIBUTION WIDTH 16.6 % (11.7-14.4); WHITE BLOOD COUNT 8.61 x10e3/uL (4.8-10.8)
[2024-03-26 15:41] LABS: MAGNESIUM 1.4 MG/DL (1.3-2.1)
[2024-03-26 15:44] LABS: POTASSIUM 3.2 mmol/L (3.5-5.1)
[2024-03-26] MEDS: POTASSIUM CHLORIDE 10MEQ EA PO ONE (17:17)
[2024-03-26] MEDS: ACETAMINOPHEN/CODEINE 300MG - 30MG TAB PO PRN (17:18)
[2024-03-27] VITALS (8 sets, daily range): BP systolic 107–122; BP diastolic 47–61; PULSE 91–99; RESP 18–20; TEMP 98.4–99.1; O2SAT 95–99
[2024-03-27 06:48] LABS: ALBUMIN 2.3 g/dL (3.5-5.0); ALBUMIN/GLOBULIN RATIO 1.1 (0.8-2.0); ALKALINE PHOSPHATASE 43 IU/L (40-150); ANION GAP 12.5 mmol/L (8-16); BILIRUBIN,TOTAL 0.3 mg/dL (0.2-1.2); BLOOD UREA NITROGEN < 5 mg/dL (7-26); CALCIUM 7.7 mg/dL (8.4-10.2); CARBON DIOXIDE 21 mmol/L (22-29); CHLORIDE 104 mmol/L (98-107); CREATININE, SERUM 0.66 mg/dL (0.72-1.25); EST GLOMERULAR FILTRATION RATE 101 ML/MIN (>=60); GLUCOSE 273 mg/dL (74-118); POTASSIUM 4.5 mmol/L (3.5-5.1); SODIUM 133 mmol/L (136-145); TOTAL PROTEIN 4.4 g/dL (6.5-8.1)
[2024-03-27 06:52] LABS: ALANINE AMINOTRANSFERASE < 6 IU/L (0-55); BUN/CREATININE RATIO 8 (6-25)
[2024-03-27 07:01] LABS: BASOPHILS # (AUTO) 0.1 (0.0-0.1); BASOPHILS % 0.6 % (0.0-1.0); EOSINOPHILS # (AUTO) 0.3 (0.0-0.4); EOSINOPHILS % 3.6 % (0.0-6.0); HEMATOCRIT 28.1 % (38.2-49.6); HEMOGLOBIN 9.2 g/dL (14.0-18.0); LYMPHOCYTES # (AUTO) 1.6 (1.0-3.2); LYMPHOCYTES % 16.7 % (18.0-39.1); MEAN CORPUSCULAR HEMOGLOBIN 29.1 pg (28-32); MEAN CORPUSCULAR HGB CONC 32.7 g/dL (31-35); MEAN CORPUSCULAR VOLUME 88.9 fL (81-99); MONOCYTES # (AUTO) 0.7 (0.2-0.8); MONOCYTES % 7.3 % (4.4-11.3); NEUTROPHILS # (AUTO) 6.6 (2.1-6.9); NEUTROPHILS % 70.8 % (38.7-80.0); PLATELET COUNT 516 x10e3/uL (140-360); RED BLOOD COUNT 3.16 x10e6/uL (4.3-5.7); WHITE BLOOD COUNT 9.27 x10e3/uL (4.8-10.8)
[2024-03-28] VITALS: BP 110/55; PULSE 106; RESP 16; TEMP 99.1; O2SAT 100
[2024-03-28 06:06] VITALS: BP 123/46; PULSE 102; RESP 16; TEMP 98.9; O2SAT 96
[2024-03-28 08:20] VITALS: BP 120/60; PULSE 83; RESP 20; TEMP 98.3; O2SAT 95
[2024-03-28 08:49] VITALS: BP 120/60; PULSE 83; RESP 20; TEMP 98.3; O2SAT 95
[2024-03-28] MEDS: INSULIN LISPRO 100 UNIT/1 ML 3ML VIAL SQ SCH (08:55)
[2024-03-28 12:13] VITALS: BP 105/56; PULSE 96; RESP 20; TEMP 98.3; O2SAT 98
[2024-03-28 16:08] VITALS: BP 109/55; PULSE 88; RESP 20; TEMP 97.9; O2SAT 100
== END 2024-03-28 16:47 | DRG 329 ==
LOC: ER 22:17 → ERHOLD 03-16 03:09 → ICU 03-16 03:45 → MED/SURG 03-23 16:00
PROVIDERS: ADMIT Internal Medicine; ATTEND Internal Medicine
PROC: 06HY33Z Insertion of Infusion Device into Lower Vein, Percutaneous Approach (ICD-10-PCS; 2024-03-16)
PROC: 30233N1 Transfusion of Nonautologous Red Blood Cells into Peripheral Vein, Percutaneous Approach (ICD-10-PCS; 2024-03-16)
PROC: 0DBL8ZX Excision of Transverse Colon, Via Natural or Artificial Opening Endoscopic, Diagnostic (ICD-10-PCS; 2024-03-16)
PROC: 02HV33Z Insertion of Infusion Device into Superior Vena Cava, Percutaneous Approach (ICD-10-PCS; 2024-03-16)
PROC: 0T9B70Z Drainage of Bladder with Drainage Device, Via Natural or Artificial Opening (ICD-10-PCS; 2024-03-20)
PROC: 0DTG0ZZ Resection of Left Large Intestine, Open Approach (ICD-10-PCS; principal; 2024-03-20 12:19)
DX: K57.91 Diverticulosis of intestine, part unspecified, without perforation or abscess with bleeding (principal); K55.039 Acute (reversible) ischemia of large intestine, extent unspecified; R57.1 Hypovolemic shock; D62 Acute posthemorrhagic anemia; E87.20 Acidosis, unspecified; K63.3 Ulcer of intestine; I10 Essential (primary) hypertension; E11.9 Type 2 diabetes mellitus without complications; I25.10 Atherosclerotic heart disease of native coronary artery without angina pectoris; E78.5 Hyperlipidemia, unspecified; N32.89 Other specified disorders of bladder; K64.8 Other hemorrhoids; Z11.52 Encounter for screening for COVID-19; Z79.4 Long term (current) use of insulin; I25.2 Old myocardial infarction; Z90.49 Acquired absence of other specified parts of digestive tract; Z95.5 Presence of coronary angioplasty implant and graft; Z86.74 Personal history of sudden cardiac arrest
CPT/HCPCS: 36415; 36569; 45330; 71045; 74174; 78278; 80048; 80053; 82948; 83735; 84132; 85014; 85018; 85025; 85610; 85730; 86850; 86900; 86920; 88304; 88305; 88307; 88312; 88342; 93005; 94760; 94799; 96372; 99285; A9512; J0696; J1170; J1644; J2001; J2353; J2371; J2405; J2470; J3475; J7030; J7050; J7799; P9016; Q9967; U0002